=== PATIENT | male | born 1940 | race African-American/Black ===

== ENCOUNTER 2018-02-08 13:55 | Inpatient (IN) | payer MEDICARE, MEDICAID ==
[~2018-02-08] VITALS: Ht 165.1 cm; Wt 58.9 kg
[~2018-02-08 13:55] MED LIST: FERR325T18 PO; FOLI-17 PO; MULT-750 PO; PANT40TA5 PO; THIA100T67 PO
[2018-02-08] MEDS ORDERED: SODIUM CHLORIDE 0.9% 1,000ML IVBOLUS ONE (14:30)
[2018-02-08 14:43] LABS: BASOPHILS # (AUTO) 0.02 x10^3/uL (0-0.1); BASOPHILS % (AUTO) 0 % (0-1); EOSINOPHILS # (AUTO) 0.07 x10^3/uL (0-0.4); EOSINOPHILS % (AUTO) 1 % (1-7); LYMPHOCYTES # (AUTO) 0.78 x10^3/uL (1-3.4); LYMPHOCYTES % (AUTO) 12 % (22-44); MD NO; MEAN CORPUSCULAR HEMOGLOBIN 26.2 pg (27.5-34.5); MEAN CORPUSCULAR HGB CONC 32.7 g/dL (33.2-36.2); MEAN CORPUSCULAR VOLUME 79.9 fL (81-97); MEAN PLATELET VOLUME 10.3 fL (7.4-10.4); MONOCYTES # (AUTO) 0.72 x10^3/uL (0.2-0.8); MONOCYTES % (AUTO) 11 % (2-9); NEUTROPHILS # (AUTO) 4.98 x10^3/uL (1.8-6.8); NEUTROPHILS % (AUTO) 76 % (42-75); PLATELET COUNT 183 x10^3/uL (130-400); RED BLOOD COUNT 4.93 x10^6/uL (4.38-5.82); RED CELL DISTRIBUTION WIDTH 16.5 % (9.4-14.8)
[2018-02-08 14:49] LABS: ALBUMIN 3.8 g/dL (3.4-5.0); ANION GAP 12 mmol/L (5-15); CHLORIDE 117 mmol/L (98-107)
[2018-02-08 14:51] LABS: SALICYLATE LEVEL < 1.7 mg/dL (2.8-20.0)
[2018-02-08 14:54] LABS: ALANINE AMINOTRANSFERASE 44 U/L (12-78); ALKALINE PHOSPHATASE 65 U/L (45-117); BILIRUBIN,TOTAL 0.7 mg/dL (0.2-1.0); CREATININE 2.42 mg/dL (0.7-1.3); TROPONIN I 0.042 ng/mL (0.000-0.045)
[2018-02-08 15:00] LABS: ACETAMINOPHEN < 2 mcg/mL (10-30)
[2018-02-08 15:03] LABS: CREATINE KINASE, TOTAL 1205 U/L (39-308)
[2018-02-08 15:12] LABS: INTERNATIONAL NORMALIZED RATIO 1.1 (0.93-1.1); PROTHROMBIN TIME 11.4 Seconds (9.6-11.5)
[2018-02-08] MEDS ORDERED: ONDANSETRON 2MG/ML, 2ML IVPush PRN (16:00)
[2018-02-08] MEDS ORDERED: ACETAMINOPHEN 325 MG TABLET PO PRN (16:00)
[2018-02-08 17:48] VITALS: BP 176/80
[2018-02-08] MEDS: D5%-0.45% NACL 1,000 ML IV SCH (18:39)
[2018-02-08 19:30] VITALS: BP 128/72
[2018-02-09 02:43] VITALS: BP 120/70
[2018-02-09] MEDS: D5%-0.45% NACL 1,000 ML IV SCH (03:44)
[2018-02-09 06:14] LABS: ALBUMIN 3.2 g/dL (3.4-5.0); ANION GAP 6 mmol/L (5-15); CALCIUM 8.3 mg/dL (8.5-10.1); CHLORIDE 115 mmol/L (98-107)
[2018-02-09 06:28] LABS: ALANINE AMINOTRANSFERASE 43 U/L (12-78); ALKALINE PHOSPHATASE 52 U/L (45-117); BILIRUBIN,TOTAL 0.7 mg/dL (0.2-1.0); THYROID STIMULATING HORMONE 0.862 mIU/L (0.358-3.740); TOTAL PROTEIN 6.7 g/dL (6.4-8.2)
[2018-02-09 06:51] LABS: BASOPHILS # (AUTO) 0.03 x10^3/uL (0-0.1); BASOPHILS % (AUTO) 0 % (0-1); EOSINOPHILS # (AUTO) 0.31 x10^3/uL (0-0.4); EOSINOPHILS % (AUTO) 5 % (1-7); LYMPHOCYTES # (AUTO) 1.62 x10^3/uL (1-3.4); LYMPHOCYTES % (AUTO) 26 % (22-44); MD SCAN; MEAN CORPUSCULAR HGB CONC 32.5 g/dL (33.2-36.2); MEAN CORPUSCULAR VOLUME 79.8 fL (81-97); MEAN PLATELET VOLUME 10.7 fL (7.4-10.4); MONOCYTES # (AUTO) 0.72 x10^3/uL (0.2-0.8); MONOCYTES % (AUTO) 12 % (2-9); NEUTROPHILS % (AUTO) 57 % (42-75); PLATELET COUNT 162 x10^3/uL (130-400); RED BLOOD COUNT 4.57 x10^6/uL (4.38-5.82); RED CELL DISTRIBUTION WIDTH 16.2 % (9.4-14.8)
[2018-02-09 08:00] VITALS: BP 137/79
[2018-02-09 10:22] LABS: MICROSCOPIC NOT IND
[2018-02-09 10:27] LABS: CULTURE INDICATED? NO
[2018-02-09] MEDS ORDERED: ENOXAPARIN 30 MG/0.3 ML SQ SCH (13:00)
[2018-02-09 13:20] LABS: % IRON SATURATION 40 % (20-55); IRON LEVEL 83 mcg/dL (65-175); TOTAL IRON BINDING CAPACITY 205 mcg/dL (250-450)
[2018-02-09] MEDS: DEXTROSE 5% 1,000 ML IV SCH (15:48)
[2018-02-09] MEDS: IRON SUCROSE COMPLEX 100MG/5ML IV SCH (15:48)
[2018-02-09 18:57] VITALS: BP 136/72
[2018-02-10 01:13] VITALS: BP 156/64
[2018-02-10] MEDS: DEXTROSE 5% 1,000 ML IV SCH ×2 (03:10→16:51)
[2018-02-10 03:29] LABS: MICROSCOPIC NOT IND
[2018-02-10 03:44] LABS: CULTURE INDICATED? NO
[2018-02-10 05:24] LABS: ALBUMIN 2.9 g/dL (3.4-5.0); ANION GAP 7 mmol/L (5-15); CALCIUM 8.1 mg/dL (8.5-10.1); CHLORIDE 111 mmol/L (98-107); CREATININE 0.92 mg/dL (0.7-1.3)
[2018-02-10 08:21] VITALS: BP 165/79
[2018-02-10] MEDS: IRON SUCROSE COMPLEX 100MG/5ML IV SCH (10:47)
[2018-02-10 11:06] VITALS: BP 163/82
[2018-02-10 14:35] VITALS: BP 147/83
[2018-02-10] MEDS: ENOXAPARIN 40 MG/0.4 ML SQ SCH (15:26)
[2018-02-10 18:47] VITALS: BP 152/77
[2018-02-11 00:48] VITALS: BP 160/90
[2018-02-11] MEDS: DEXTROSE 5% 1,000 ML IV SCH ×2 (05:36→19:40)
[2018-02-11 07:07] LABS: CHLORIDE 105 mmol/L (98-107)
[2018-02-11 07:08] LABS: ANION GAP 7 mmol/L (5-15); CALCIUM 7.8 mg/dL (8.5-10.1); CREATININE 0.75 mg/dL (0.7-1.3)
[2018-02-11 07:09] LABS: CREATINE KINASE, TOTAL 253 U/L (39-308)
[2018-02-11 07:50] VITALS: BP 119/70
[2018-02-11] MEDS ORDERED: MAGNESIUM SULFATE PMX 2GM/50ML 50 ML IV ONE (09:00)
[2018-02-11] MEDS ORDERED: POTASSIUM CHLORIDE 20 MEQ TAB.ER.PRT PO ONE ×2 (09:00→15:00)
[2018-02-11] MEDS: IRON SUCROSE COMPLEX 100MG/5ML IV SCH (11:34)
[2018-02-11] MEDS: ENOXAPARIN 40 MG/0.4 ML SQ SCH (15:08)
[2018-02-11 15:21] VITALS: BP 143/75
[2018-02-11 19:32] VITALS: BP 148/77
[2018-02-12 01:54] VITALS: BP 154/82
[2018-02-12] MEDS: DEXTROSE 5% 1,000 ML IV SCH ×2 (05:34→15:22)
[2018-02-12 07:18] VITALS: BP 149/99
[2018-02-12] MEDS: IRON SUCROSE COMPLEX 100MG/5ML IV SCH (08:45)
[2018-02-12 13:49] VITALS: BP 135/67
[2018-02-12] MEDS: ENOXAPARIN 40 MG/0.4 ML SQ SCH (15:21)
[2018-02-12 20:00] VITALS: BP 149/76
[2018-02-13] MEDS: DEXTROSE 5% 1,000 ML IV SCH (01:28)
[2018-02-13 02:00] VITALS: BP 146/79
[2018-02-13 07:58] VITALS: BP 136/94
[2018-02-13] MEDS: IRON SUCROSE COMPLEX 100MG/5ML IV SCH (08:06)
[2018-02-13 12:23] VITALS: BP 142/75
[2018-02-13] MEDS: ENOXAPARIN 40 MG/0.4 ML SQ SCH (14:00)
[2018-02-13 19:26] VITALS: BP 124/68
[2018-02-14 01:04] VITALS: BP 153/86
[2018-02-14 07:23] VITALS: BP 111/74
[2018-02-14] MEDS: MAGNESIUM SULFATE PMX 2GM/50ML 50 ML IV ONE ×2 (10:12→17:27)
[2018-02-14] MEDS: POTASSIUM CHLORIDE 20 MEQ TAB.ER.PRT PO SCH ×2 (10:12→17:28)
[2018-02-14 13:02] VITALS: BP 111/74
[2018-02-14] MEDS: ENOXAPARIN 40 MG/0.4 ML SQ SCH (15:38)
[2018-02-14 20:00] VITALS: BP 159/74
[2018-02-15 02:00] VITALS: BP 169/81
[2018-02-15 05:17] LABS: ANION GAP 7 mmol/L (5-15); CALCIUM 8.5 mg/dL (8.5-10.1); CHLORIDE 107 mmol/L (98-107)
[2018-02-15 05:18] LABS: CREATININE 0.96 mg/dL (0.7-1.3)
[2018-02-15 07:33] VITALS: BP 120/82
[2018-02-15] MEDS: DOCUSATE 100 MG CAPSULE PO PRN (09:44)
[2018-02-15 12:58] VITALS: BP 107/69
[2018-02-15] MEDS: ENOXAPARIN 40 MG/0.4 ML SQ SCH (15:09)
[2018-02-15 20:00] VITALS: BP 124/74
[2018-02-16 01:53] VITALS: BP 120/69
[2018-02-16 07:42] LABS: ALBUMIN 3.3 g/dL (3.4-5.0); ANION GAP 7 mmol/L (5-15); CALCIUM 8.4 mg/dL (8.5-10.1); CHLORIDE 106 mmol/L (98-107); CREATININE 0.92 mg/dL (0.7-1.3)
[2018-02-16 07:43] VITALS: BP 121/73
[2018-02-16 12:52] VITALS: BP 123/74
[2018-02-16] MEDS: ENOXAPARIN 40 MG/0.4 ML SQ SCH (14:39)
[2018-02-16 19:33] VITALS: BP 129/75
[2018-02-17 01:58] VITALS: BP 160/78
[2018-02-17 08:42] VITALS: BP 143/84
[2018-02-17] MEDS: ENOXAPARIN 40 MG/0.4 ML SQ SCH (14:14)
[2018-02-17 14:27] VITALS: BP 127/82
[2018-02-17 21:54] VITALS: BP 126/76
[2018-02-18 01:48] VITALS: BP 119/79
[2018-02-18 06:48] VITALS: BP 120/75
[2018-02-18 12:20] VITALS: BP 118/69
[2018-02-18] MEDS: ENOXAPARIN 40 MG/0.4 ML SQ SCH (14:38)
[2018-02-18 19:25] VITALS: BP 152/72
[2018-02-19 01:56] VITALS: BP 124/66
[2018-02-19 07:24] VITALS: BP 116/75
[2018-02-19 12:56] VITALS: BP 138/73
[2018-02-19] MEDS: ENOXAPARIN 40 MG/0.4 ML SQ SCH (14:00)
[2018-02-19 19:35] VITALS: BP 135/77
[2018-02-20 00:57] VITALS: BP 117/77
[2018-02-20 04:54] LABS: BASOPHILS # (AUTO) 0.02 x10^3/uL (0-0.1); BASOPHILS % (AUTO) 0 % (0-1); EOSINOPHILS # (AUTO) 0.57 x10^3/uL (0-0.4); EOSINOPHILS % (AUTO) 9 % (1-7); LYMPHOCYTES # (AUTO) 1.82 x10^3/uL (1-3.4); LYMPHOCYTES % (AUTO) 28 % (22-44); MD NO; MEAN CORPUSCULAR HEMOGLOBIN 26.3 pg (27.5-34.5); MEAN CORPUSCULAR VOLUME 79.8 fL (81-97); MEAN PLATELET VOLUME 8.6 fL (7.4-10.4); MONOCYTES # (AUTO) 0.59 x10^3/uL (0.2-0.8); MONOCYTES % (AUTO) 9 % (2-9); NEUTROPHILS # (AUTO) 3.61 x10^3/uL (1.8-6.8); NEUTROPHILS % (AUTO) 55 % (42-75); PLATELET COUNT 325 x10^3/uL (130-400); RED BLOOD COUNT 5.05 x10^6/uL (4.38-5.82)
[2018-02-20 05:08] LABS: ANION GAP 7 mmol/L (5-15); CALCIUM 8.7 mg/dL (8.5-10.1); CHLORIDE 98 mmol/L (98-107)
[2018-02-20 05:14] LABS: ALANINE AMINOTRANSFERASE 30 U/L (12-78); ALBUMIN 3.3 g/dL (3.4-5.0); ALKALINE PHOSPHATASE 74 U/L (45-117); BILIRUBIN,TOTAL 0.5 mg/dL (0.2-1.0); CREATININE 1.16 mg/dL (0.7-1.3); TOTAL PROTEIN 7.7 g/dL (6.4-8.2)
[2018-02-20 06:50] VITALS: BP 119/74
[2018-02-20 13:04] VITALS: BP 155/75
[2018-02-20] MEDS: ENOXAPARIN 40 MG/0.4 ML SQ SCH (14:00)
[2018-02-20 19:42] VITALS: BP 117/62
[2018-02-21 01:11] VITALS: BP 122/87
[2018-02-21 06:42] VITALS: BP 108/58
[2018-02-21 13:01] VITALS: BP 110/70
[2018-02-21] MEDS: ENOXAPARIN 40 MG/0.4 ML SQ SCH (14:20)
[2018-02-21 20:15] VITALS: BP 129/74
[2018-02-22 01:55] VITALS: BP 121/68
[2018-02-22 07:00] VITALS: BP 116/69
[2018-02-22 12:57] VITALS: BP 127/77
[2018-02-22] MEDS: ENOXAPARIN 40 MG/0.4 ML SQ SCH (14:30)
[2018-02-22] MEDS: DOCUSATE 100 MG CAPSULE PO PRN (14:30)
[2018-02-23 07:50] VITALS: BP 126/64
[2018-02-23 09:00] LABS: ALBUMIN 3.4 g/dL (3.4-5.0); ANION GAP 6 mmol/L (5-15); CALCIUM 8.4 mg/dL (8.5-10.1); CHLORIDE 96 mmol/L (98-107)
[2018-02-23 09:01] LABS: CREATININE 1.11 mg/dL (0.7-1.3)
[2018-02-23 13:31] LABS: ABSOLUTE RETICS # 0.136 x10^6/uL (0.5-1.5); RED BLOOD COUNT 5.17 x10^6/uL (4.38-5.82); RETICULOCYTE COUNT % 2.62 % (0.5-1.5)
[2018-02-23 13:35] LABS: CALCIUM 8.9 mg/dL (8.5-10.1)
[2018-02-23] MEDS: ENOXAPARIN 40 MG/0.4 ML SQ SCH (15:33)
[2018-02-23 17:50] LABS: MICROSCOPIC NOT IND
[2018-02-23 17:58] LABS: CHLORIDE,URINE RANDOM 30 mmol/L; POTASSIUM,URINE RANDOM 38 mmol/L; SODIUM,URINE RANDOM 51 mmol/L
[2018-02-23 18:54] LABS: OSMOLALITY,URINE 437 mOsm/kg (500-850)
[2018-02-23] MEDS: POLYETHYLENE GLYCOL 17 GM PACKET PO PRN (22:08)
[2018-02-24 04:59] VITALS: BP 81/52
[2018-02-24 06:51] LABS: ALANINE AMINOTRANSFERASE 28 U/L (12-78); ALBUMIN 3.8 g/dL (3.4-5.0); ANION GAP 9 mmol/L (5-15); CALCIUM 8.6 mg/dL (8.5-10.1); CHLORIDE 97 mmol/L (98-107)
[2018-02-24 06:54] LABS: ALKALINE PHOSPHATASE 101 U/L (45-117); BILIRUBIN,TOTAL 0.4 mg/dL (0.2-1.0); CREATINE KINASE, TOTAL 55 U/L (39-308); TOTAL PROTEIN 8.5 g/dL (6.4-8.2)
[2018-02-24 06:59] LABS: BASOPHILS # (AUTO) 0.06 x10^3/uL (0-0.1); BASOPHILS % (AUTO) 1 % (0-1); EOSINOPHILS # (AUTO) 0.43 x10^3/uL (0-0.4); EOSINOPHILS % (AUTO) 7 % (1-7); LYMPHOCYTES # (AUTO) 1.11 x10^3/uL (1-3.4); LYMPHOCYTES % (AUTO) 19 % (22-44); MD NO; MEAN CORPUSCULAR HEMOGLOBIN 26.4 pg (27.5-34.5); MEAN CORPUSCULAR HGB CONC 33.1 g/dL (33.2-36.2); MEAN CORPUSCULAR VOLUME 79.8 fL (81-97); MEAN PLATELET VOLUME 8.7 fL (7.4-10.4); MONOCYTES # (AUTO) 0.47 x10^3/uL (0.2-0.8); MONOCYTES % (AUTO) 8 % (2-9); NEUTROPHILS # (AUTO) 3.73 x10^3/uL (1.8-6.8); NEUTROPHILS % (AUTO) 64 % (42-75); PLATELET COUNT 347 x10^3/uL (130-400); RED BLOOD COUNT 5.52 x10^6/uL (4.38-5.82); RED CELL DISTRIBUTION WIDTH 17.4 % (9.4-14.8)
[2018-02-24 07:35] VITALS: BP 127/79
[2018-02-24] MEDS: ENOXAPARIN 40 MG/0.4 ML SQ SCH (15:35)
[2018-02-24] MEDS: POLYETHYLENE GLYCOL 17 GM PACKET PO PRN (15:36)
[2018-02-25 04:47] LABS: BASOPHILS # (AUTO) 0.04 x10^3/uL (0-0.1); BASOPHILS % (AUTO) 1 % (0-1); EOSINOPHILS # (AUTO) 0.57 x10^3/uL (0-0.4); EOSINOPHILS % (AUTO) 8 % (1-7); LYMPHOCYTES # (AUTO) 1.85 x10^3/uL (1-3.4); LYMPHOCYTES % (AUTO) 26 % (22-44); MD NO; MEAN CORPUSCULAR HEMOGLOBIN 26.4 pg (27.5-34.5); MEAN CORPUSCULAR HGB CONC 32.7 g/dL (33.2-36.2); MEAN CORPUSCULAR VOLUME 80.8 fL (81-97); MEAN PLATELET VOLUME 8.9 fL (7.4-10.4); MONOCYTES # (AUTO) 0.72 x10^3/uL (0.2-0.8); MONOCYTES % (AUTO) 10 % (2-9); NEUTROPHILS # (AUTO) 3.83 x10^3/uL (1.8-6.8); NEUTROPHILS % (AUTO) 55 % (42-75); PLATELET COUNT 338 x10^3/uL (130-400); RED BLOOD COUNT 4.96 x10^6/uL (4.38-5.82); RED CELL DISTRIBUTION WIDTH 16.9 % (9.4-14.8)
[2018-02-25 04:53] LABS: CHLORIDE 97 mmol/L (98-107)
[2018-02-25 04:59] LABS: ALBUMIN 3.3 g/dL (3.4-5.0); ANION GAP 9 mmol/L (5-15); CALCIUM 8.5 mg/dL (8.5-10.1)
[2018-02-25 07:28] VITALS: BP 129/70
[2018-02-25] MEDS: ENOXAPARIN 40 MG/0.4 ML SQ SCH (14:22)
[2018-02-25 19:37] VITALS: BP 131/79
[2018-02-26 01:23] VITALS: BP 132/64
[2018-02-26 07:30] VITALS: BP 115/63
[2018-02-26] MEDS: SODIUM CHLORIDE 0.9% 1,000 ML IV SCH ×2 (09:39→19:48)
[2018-02-26] MEDS: ENOXAPARIN 40 MG/0.4 ML SQ SCH (15:02)
[2018-02-26 20:41] VITALS: BP 123/76
[2018-02-27 01:09] VITALS: BP 129/73
[2018-02-27] MEDS: SODIUM CHLORIDE 0.9% 1,000 ML IV SCH ×2 (05:34→15:15)
[2018-02-27 08:06] VITALS: BP 128/70
[2018-02-27 09:10] LABS: ALBUMIN 3.3 g/dL (3.4-5.0); ANION GAP 4 mmol/L (5-15); CALCIUM 8.4 mg/dL (8.5-10.1); CHLORIDE 101 mmol/L (98-107); CREATININE 0.93 mg/dL (0.7-1.3)
[2018-02-27 13:47] VITALS: BP 132/68
[2018-02-27] MEDS: ENOXAPARIN 40 MG/0.4 ML SQ SCH (15:15)
[2018-02-27 18:53] VITALS: BP 121/60
[2018-02-28 01:09] VITALS: BP 140/65
[2018-02-28] MEDS: SODIUM CHLORIDE 0.9% 1,000 ML IV SCH ×3 (02:56→21:28)
[2018-02-28 07:35] VITALS: BP 125/75
[2018-02-28 12:14] VITALS: BP 126/71
[2018-02-28] MEDS: ENOXAPARIN 40 MG/0.4 ML SQ SCH (15:27)
[2018-02-28 20:00] VITALS: BP 126/76
[2018-03-01 01:37] VITALS: BP 131/71
[2018-03-01] MEDS: SODIUM CHLORIDE 0.9% 1,000 ML IV SCH ×2 (06:42→17:30)
[2018-03-01 07:08] VITALS: BP 118/57
[2018-03-01 13:17] VITALS: BP 124/62
[2018-03-01] MEDS: ENOXAPARIN 40 MG/0.4 ML SQ SCH (15:33)
[2018-03-01 16:41] LABS: ALBUMIN 2.9 g/dL (3.4-5.0); ANION GAP 8 mmol/L (5-15); CHLORIDE 104 mmol/L (98-107)
[2018-03-01 16:44] LABS: CREATININE 0.78 mg/dL (0.7-1.3)
[2018-03-01 21:42] VITALS: BP 141/71
[2018-03-02 02:06] VITALS: BP 133/62
[2018-03-02] MEDS: SODIUM CHLORIDE 0.9% 1,000 ML IV SCH ×2 (03:24→13:43)
[2018-03-02 07:15] VITALS: BP 137/67
[2018-03-02 12:48] VITALS: BP 125/71
[2018-03-02] MEDS: ENOXAPARIN 40 MG/0.4 ML SQ SCH (15:29)
[2018-03-02 20:07] VITALS: BP 135/73
[2018-03-03 01:18] VITALS: BP 156/67
[2018-03-03 05:50] LABS: ALBUMIN 3.2 g/dL (3.4-5.0); ANION GAP 7 mmol/L (5-15); CALCIUM 8.4 mg/dL (8.5-10.1); CHLORIDE 103 mmol/L (98-107); CREATININE 0.71 mg/dL (0.7-1.3)
[2018-03-03 08:03] VITALS: BP 130/62
[2018-03-03 13:24] VITALS: BP 107/55
[2018-03-03] MEDS: ENOXAPARIN 40 MG/0.4 ML SQ SCH (16:01)
[2018-03-03 19:02] VITALS: BP 152/75
[2018-03-04 00:46] VITALS: BP 139/83
[2018-03-04 06:01] LABS: ANION GAP 7 mmol/L (5-15); CHLORIDE 99 mmol/L (98-107); CREATININE 0.76 mg/dL (0.7-1.3)
[2018-03-04 08:18] VITALS: BP 140/67
[2018-03-04 12:14] VITALS: BP 99/60
[2018-03-04] MEDS: ENOXAPARIN 40 MG/0.4 ML SQ SCH (15:50)
[2018-03-04 20:00] VITALS: BP 99/47
[2018-03-05 02:00] VITALS: BP 136/64
[2018-03-05 07:08] VITALS: BP 112/60
[2018-03-05 12:13] VITALS: BP 120/64
[2018-03-05] MEDS: ENOXAPARIN 40 MG/0.4 ML SQ SCH (15:52)
[2018-03-05 19:20] VITALS: BP 126/68
[2018-03-06 01:08] VITALS: BP 112/58
[2018-03-06 07:20] VITALS: BP 110/68
[2018-03-06] MEDS: DOCUSATE 100 MG CAPSULE PO PRN (09:22)
[2018-03-06 13:01] VITALS: BP 122/70
[2018-03-06] MEDS: ENOXAPARIN 40 MG/0.4 ML SQ SCH (15:20)
[2018-03-06 19:02] VITALS: BP 116/64
[2018-03-07 01:02] VITALS: BP 107/62
[2018-03-07 06:29] LABS: ANION GAP 9 mmol/L (5-15); CALCIUM 8.4 mg/dL (8.5-10.1); CHLORIDE 100 mmol/L (98-107)
[2018-03-07 06:31] LABS: CREATININE 0.88 mg/dL (0.7-1.3)
[2018-03-07 07:14] VITALS: BP 101/49
[2018-03-07 09:14] LABS: MICROSCOPIC NOT IND
[2018-03-07 09:18] LABS: CULTURE INDICATED? NO
[2018-03-07 13:01] VITALS: BP 99/61
[2018-03-07] MEDS: ENOXAPARIN 40 MG/0.4 ML SQ SCH (15:28)
[2018-03-07 19:18] VITALS: BP 122/54
[2018-03-08 00:55] VITALS: BP 118/58
[2018-03-08 09:58] VITALS: BP 116/64
[2018-03-08 10:36] LABS: CHLORIDE 100 mmol/L (98-107)
[2018-03-08 10:41] LABS: ANION GAP 8 mmol/L (5-15); CALCIUM 8.9 mg/dL (8.5-10.1); CREATININE 0.91 mg/dL (0.7-1.3)
[2018-03-08 14:17] VITALS: BP 116/48
[2018-03-08] MEDS: ENOXAPARIN 40 MG/0.4 ML SQ SCH (16:16)
[2018-03-08 20:27] VITALS: BP 129/66
[2018-03-09 02:01] VITALS: BP 180/99
[2018-03-09 03:52] VITALS: BP 126/77
[2018-03-09 14:18] VITALS: BP 136/75
[2018-03-09] MEDS: ENOXAPARIN 40 MG/0.4 ML SQ SCH (14:58)
[2018-03-09 19:39] VITALS: BP 110/41
[2018-03-10 01:10] VITALS: BP 96/50
[2018-03-10 07:46] VITALS: BP 96/51
[2018-03-10 13:00] VITALS: BP 123/71
[2018-03-10] MEDS: ENOXAPARIN 40 MG/0.4 ML SQ SCH (15:39)
[2018-03-10 19:00] VITALS: BP 138/79
[2018-03-11 02:45] VITALS: BP 123/60
[2018-03-11 08:38] VITALS: BP 122/62
[2018-03-11 14:15] VITALS: BP 121/58
[2018-03-11] MEDS: ENOXAPARIN 40 MG/0.4 ML SQ SCH (14:57)
[2018-03-11 20:17] VITALS: BP 113/63
[2018-03-12 02:03] VITALS: BP 101/63
[2018-03-12 07:25] VITALS: BP 110/61
[2018-03-12 09:47] LABS: ANION GAP 9 mmol/L (5-15); CALCIUM 8.7 mg/dL (8.5-10.1); CHLORIDE 93 mmol/L (98-107)
[2018-03-12 09:48] LABS: CREATININE 1.06 mg/dL (0.7-1.3)
[2018-03-12] MEDS ORDERED: SODIUM CHLORIDE 1 GM TABLET PO SCH (11:00)
[2018-03-12 13:36] VITALS: BP 107/69
[2018-03-12] MEDS: ENOXAPARIN 40 MG/0.4 ML SQ SCH (14:42)
[2018-03-12] MEDS: SODIUM CHLORIDE 1 GM TABLET PO SCH ×2 (15:51→21:57)
[2018-03-12 19:41] VITALS: BP 119/72
[2018-03-13 01:30] VITALS: BP 130/65
[2018-03-13 07:15] VITALS: BP 100/56
[2018-03-13] MEDS: SODIUM CHLORIDE 1 GM TABLET PO SCH ×3 (09:10→22:41)
[2018-03-13 10:27] LABS: ANION GAP 8 mmol/L (5-15); CALCIUM 8.9 mg/dL (8.5-10.1); CHLORIDE 93 mmol/L (98-107); CREATININE 0.99 mg/dL (0.7-1.3)
[2018-03-13 13:42] VITALS: BP 102/78
[2018-03-13] MEDS: ENOXAPARIN 40 MG/0.4 ML SQ SCH (15:32)
[2018-03-13 18:55] VITALS: BP 110/76
[2018-03-14 01:13] VITALS: BP 104/65
[2018-03-14] MEDS: SODIUM CHLORIDE 1 GM TABLET PO SCH ×4 (05:23→20:05)
[2018-03-14 05:57] LABS: CALCIUM 9.4 mg/dL (8.5-10.1); CHLORIDE 96 mmol/L (98-107)
[2018-03-14 06:00] LABS: ANION GAP 8 mmol/L (5-15); CREATININE 1.16 mg/dL (0.7-1.3)
[2018-03-14] MEDS ORDERED: SODIUM POLYSTYRENE SULFONATE ORAL SUSP PO ONE (08:00)
[2018-03-14 09:30] VITALS: BP 124/70
[2018-03-14 13:30] VITALS: BP 104/58
[2018-03-14] MEDS: ENOXAPARIN 40 MG/0.4 ML SQ SCH (15:32)
[2018-03-14 20:05] VITALS: BP 124/59
[2018-03-15 02:15] VITALS: BP 144/76
[2018-03-15] MEDS: SODIUM CHLORIDE 1 GM TABLET PO SCH ×4 (06:10→20:00)
[2018-03-15 07:18] VITALS: BP 123/71
[2018-03-15 09:25] LABS: ANION GAP 8 mmol/L (5-15); CALCIUM 8.8 mg/dL (8.5-10.1); CHLORIDE 101 mmol/L (98-107); CREATININE 1.09 mg/dL (0.7-1.3)
[2018-03-15 13:35] VITALS: BP 102/54
[2018-03-15] MEDS: ENOXAPARIN 40 MG/0.4 ML SQ SCH (16:11)
[2018-03-15 20:00] VITALS: BP 105/56
[2018-03-16 01:40] VITALS: BP_SYST 107; BP_SYST 132; BP_DIAS 52; BP_DIAS 86
[2018-03-16] MEDS: SODIUM CHLORIDE 1 GM TABLET PO SCH ×4 (06:00→20:56)
[2018-03-16 08:16] VITALS: BP 120/72
[2018-03-16 14:34] VITALS: BP 117/68
[2018-03-16] MEDS: ENOXAPARIN 40 MG/0.4 ML SQ SCH (15:15)
[2018-03-16 21:01] VITALS: BP 122/80
[2018-03-17 02:04] VITALS: BP 122/70
[2018-03-17] MEDS: SODIUM CHLORIDE 1 GM TABLET PO SCH ×4 (05:54→21:00)
[2018-03-17 07:26] VITALS: BP 99/56
[2018-03-17 07:29] LABS: ANION GAP 8 mmol/L (5-15); CALCIUM 8.2 mg/dL (8.5-10.1); CHLORIDE 102 mmol/L (98-107); CREATININE 1.06 mg/dL (0.7-1.3)
[2018-03-17] MEDS: ENOXAPARIN 40 MG/0.4 ML SQ SCH (15:46)
[2018-03-17 15:58] VITALS: BP 135/79
[2018-03-17 18:53] VITALS: BP 129/64
[2018-03-18 02:54] VITALS: BP 109/68
[2018-03-18] MEDS: SODIUM CHLORIDE 1 GM TABLET PO SCH ×4 (06:19→21:40)
[2018-03-18 10:00] VITALS: BP 112/54
[2018-03-18 14:16] VITALS: BP 137/74
[2018-03-18] MEDS: ENOXAPARIN 40 MG/0.4 ML SQ SCH (15:34)
[2018-03-18 20:16] VITALS: BP 145/74
[2018-03-19 01:02] VITALS: BP 122/76
[2018-03-19 05:41] LABS: ANION GAP 5 mmol/L (5-15); CALCIUM 8.9 mg/dL (8.5-10.1); CHLORIDE 100 mmol/L (98-107); CREATININE 1.02 mg/dL (0.7-1.3)
[2018-03-19] MEDS: SODIUM CHLORIDE 1 GM TABLET PO SCH ×4 (06:11→22:19)
[2018-03-19 06:23] LABS: MEAN CORPUSCULAR HEMOGLOBIN 26.4 pg (27.5-34.5); MEAN CORPUSCULAR HGB CONC 32.8 g/dL (33.2-36.2); MEAN CORPUSCULAR VOLUME 80.4 fL (81-97); MEAN PLATELET VOLUME 8.8 fL (7.4-10.4); PLATELET COUNT 277 x10^3/uL (130-400); RED BLOOD COUNT 5.36 x10^6/uL (4.38-5.82); RED CELL DISTRIBUTION WIDTH 17.4 % (9.4-14.8)
[2018-03-19 06:24] LABS: MD YES
[2018-03-19 06:26] LABS: ANISOCYTOSIS 1+; EOS#(MANUAL) 0.27 x10^3/uL (0.0-0.4); EOS% (MANUAL) 5 % (1-7); LYMPH#(MANUAL) 1.91 x10^3/uL (1-3.4); LYMPHS% (MANUAL) 36 % (22-44); MONOS#(MANUAL) 0.48 x10^3/uL (0.3-2.7); MONOS% (MANUAL) 9 % (2-9); SEG#(MANUAL) 2.65 x10^3/uL (1.8-6.8); SEGS% (MANUAL) 50 % (42-75)
[2018-03-19 06:27] LABS: <PLATELET ESTIMATE> ADEQUATE; <PLT MORPHOLOGY> NORMAL PLT MORPH
[2018-03-19 06:54] VITALS: BP 99/56
[2018-03-19 13:19] VITALS: BP 111/63
[2018-03-19] MEDS: ENOXAPARIN 40 MG/0.4 ML SQ SCH (14:18)
[2018-03-19 18:35] VITALS: BP 134/69
[2018-03-20 01:18] VITALS: BP 129/65
[2018-03-20 05:02] LABS: BASOPHILS # (AUTO) 0.01 x10^3/uL (0-0.1); BASOPHILS % (AUTO) 0 % (0-1); EOSINOPHILS # (AUTO) 0.43 x10^3/uL (0-0.4); EOSINOPHILS % (AUTO) 8 % (1-7); LYMPHOCYTES # (AUTO) 1.65 x10^3/uL (1-3.4); LYMPHOCYTES % (AUTO) 29 % (22-44); MD NO; MEAN CORPUSCULAR HEMOGLOBIN 26.5 pg (27.5-34.5); MEAN CORPUSCULAR HGB CONC 32.9 g/dL (33.2-36.2); MEAN CORPUSCULAR VOLUME 80.4 fL (81-97); MEAN PLATELET VOLUME 8.6 fL (7.4-10.4); MONOCYTES # (AUTO) 0.46 x10^3/uL (0.2-0.8); MONOCYTES % (AUTO) 8 % (2-9); NEUTROPHILS # (AUTO) 3.23 x10^3/uL (1.8-6.8); NEUTROPHILS % (AUTO) 56 % (42-75); PLATELET COUNT 318 x10^3/uL (130-400); RED BLOOD COUNT 5.43 x10^6/uL (4.38-5.82); RED CELL DISTRIBUTION WIDTH 17.4 % (9.4-14.8)
[2018-03-20 05:16] LABS: ANION GAP 7 mmol/L (5-15); CALCIUM 8.7 mg/dL (8.5-10.1); CHLORIDE 102 mmol/L (98-107); CREATININE 0.93 mg/dL (0.7-1.3)
[2018-03-20] MEDS: SODIUM CHLORIDE 1 GM TABLET PO SCH ×4 (05:47→20:16)
[2018-03-20 08:47] VITALS: BP 123/66
[2018-03-20 13:43] VITALS: BP 110/60
[2018-03-20] MEDS: ENOXAPARIN 40 MG/0.4 ML SQ SCH (15:53)
[2018-03-20 20:16] VITALS: BP 104/64
[2018-03-21 01:25] VITALS: BP 103/62
[2018-03-21 05:56] LABS: BASOPHILS # (AUTO) 0.03 x10^3/uL (0-0.1); BASOPHILS % (AUTO) 1 % (0-1); EOSINOPHILS # (AUTO) 0.46 x10^3/uL (0-0.4); EOSINOPHILS % (AUTO) 8 % (1-7); LYMPHOCYTES # (AUTO) 1.76 x10^3/uL (1-3.4); LYMPHOCYTES % (AUTO) 29 % (22-44); MD NO; MEAN CORPUSCULAR HEMOGLOBIN 26.4 pg (27.5-34.5); MEAN CORPUSCULAR HGB CONC 32.8 g/dL (33.2-36.2); MEAN CORPUSCULAR VOLUME 80.4 fL (81-97); MEAN PLATELET VOLUME 8.6 fL (7.4-10.4); MONOCYTES # (AUTO) 0.53 x10^3/uL (0.2-0.8); MONOCYTES % (AUTO) 9 % (2-9); NEUTROPHILS # (AUTO) 3.22 x10^3/uL (1.8-6.8); NEUTROPHILS % (AUTO) 54 % (42-75); PLATELET COUNT 314 x10^3/uL (130-400); RED BLOOD COUNT 5.53 x10^6/uL (4.38-5.82); RED CELL DISTRIBUTION WIDTH 16.8 % (9.4-14.8)
[2018-03-21 06:13] LABS: ANION GAP 7 mmol/L (5-15); CALCIUM 8.7 mg/dL (8.5-10.1); CHLORIDE 101 mmol/L (98-107)
[2018-03-21 06:15] LABS: CREATININE 1.05 mg/dL (0.7-1.3)
[2018-03-21 07:07] VITALS: BP 107/63
[2018-03-21] MEDS: SODIUM CHLORIDE 1 GM TABLET PO SCH ×4 (07:36→20:37)
[2018-03-21 12:56] VITALS: BP 109/64
[2018-03-21] MEDS: ENOXAPARIN 40 MG/0.4 ML SQ SCH (15:46)
[2018-03-21 20:35] VITALS: BP 112/68
[2018-03-22 02:00] VITALS: BP 105/62
[2018-03-22] MEDS: SODIUM CHLORIDE 1 GM TABLET PO SCH ×4 (05:12→20:35)
[2018-03-22 07:16] LABS: ANION GAP 8 mmol/L (5-15); CALCIUM 9.1 mg/dL (8.5-10.1); CHLORIDE 106 mmol/L (98-107); MEAN CORPUSCULAR HEMOGLOBIN 26.1 pg (27.5-34.5); MEAN CORPUSCULAR HGB CONC 32.7 g/dL (33.2-36.2); MEAN PLATELET VOLUME 8.4 fL (7.4-10.4); PLATELET COUNT 322 x10^3/uL (130-400); RED BLOOD COUNT 5.25 x10^6/uL (4.38-5.82); RED CELL DISTRIBUTION WIDTH 17.8 % (9.4-14.8)
[2018-03-22 07:17] LABS: CREATININE 0.96 mg/dL (0.7-1.3)
[2018-03-22 08:00] VITALS: BP 114/61
[2018-03-22 08:09] LABS: BASOPHILS # (AUTO) 0.07 x10^3/uL (0-0.1); BASOPHILS % (AUTO) 1 % (0-1); EOSINOPHILS # (AUTO) 0.47 x10^3/uL (0-0.4); EOSINOPHILS % (AUTO) 8 % (1-7); LYMPHOCYTES # (AUTO) 1.38 x10^3/uL (1-3.4); LYMPHOCYTES % (AUTO) 24 % (22-44); MD SCAN; MONOCYTES # (AUTO) 0.59 x10^3/uL (0.2-0.8); MONOCYTES % (AUTO) 11 % (2-9); NEUTROPHILS # (AUTO) 3.16 x10^3/uL (1.8-6.8); NEUTROPHILS % (AUTO) 56 % (42-75)
[2018-03-22 13:23] VITALS: BP 134/58
[2018-03-22] MEDS: ENOXAPARIN 40 MG/0.4 ML SQ SCH (16:12)
[2018-03-22 20:00] VITALS: BP 128/56
[2018-03-23 02:00] VITALS: BP 161/79
[2018-03-23 05:28] LABS: BASOPHILS # (AUTO) 0.02 x10^3/uL (0-0.1); BASOPHILS % (AUTO) 1 % (0-1); EOSINOPHILS # (AUTO) 0.33 x10^3/uL (0-0.4); EOSINOPHILS % (AUTO) 6 % (1-7); LYMPHOCYTES # (AUTO) 1.66 x10^3/uL (1-3.4); LYMPHOCYTES % (AUTO) 32 % (22-44); MD NO; MEAN CORPUSCULAR HEMOGLOBIN 26.4 pg (27.5-34.5); MEAN CORPUSCULAR HGB CONC 32.8 g/dL (33.2-36.2); MEAN CORPUSCULAR VOLUME 80.5 fL (81-97); MEAN PLATELET VOLUME 8.9 fL (7.4-10.4); MONOCYTES % (AUTO) 10 % (2-9); NEUTROPHILS # (AUTO) 2.65 x10^3/uL (1.8-6.8); NEUTROPHILS % (AUTO) 51 % (42-75); PLATELET COUNT 292 x10^3/uL (130-400); RED BLOOD COUNT 5.33 x10^6/uL (4.38-5.82); RED CELL DISTRIBUTION WIDTH 17.3 % (9.4-14.8)
[2018-03-23 05:37] LABS: ANION GAP 8 mmol/L (5-15); CHLORIDE 102 mmol/L (98-107)
[2018-03-23 07:55] VITALS: BP 127/74
[2018-03-23] MEDS: SODIUM CHLORIDE 1 GM TABLET PO SCH ×4 (08:13→20:25)
[2018-03-23 14:00] VITALS: BP 101/62
[2018-03-23] MEDS: ENOXAPARIN 40 MG/0.4 ML SQ SCH (16:34)
[2018-03-23 19:44] VITALS: BP 100/67
[2018-03-24 01:15] VITALS: BP 121/75
[2018-03-24 05:07] LABS: BASOPHILS # (AUTO) 0.04 x10^3/uL (0-0.1); BASOPHILS % (AUTO) 1 % (0-1); EOSINOPHILS # (AUTO) 0.44 x10^3/uL (0-0.4); EOSINOPHILS % (AUTO) 8 % (1-7); LYMPHOCYTES # (AUTO) 1.82 x10^3/uL (1-3.4); LYMPHOCYTES % (AUTO) 33 % (22-44); MD NO; MEAN CORPUSCULAR HEMOGLOBIN 26.5 pg (27.5-34.5); MEAN CORPUSCULAR HGB CONC 33.1 g/dL (33.2-36.2); MEAN CORPUSCULAR VOLUME 79.9 fL (81-97); MEAN PLATELET VOLUME 9.1 fL (7.4-10.4); MONOCYTES # (AUTO) 0.52 x10^3/uL (0.2-0.8); MONOCYTES % (AUTO) 9 % (2-9); NEUTROPHILS # (AUTO) 2.77 x10^3/uL (1.8-6.8); NEUTROPHILS % (AUTO) 50 % (42-75); PLATELET COUNT 344 x10^3/uL (130-400); RED CELL DISTRIBUTION WIDTH 17.4 % (9.4-14.8)
[2018-03-24 05:17] LABS: ANION GAP 9 mmol/L (5-15); CALCIUM 8.6 mg/dL (8.5-10.1); CHLORIDE 103 mmol/L (98-107)
[2018-03-24 05:18] LABS: CREATININE 1.07 mg/dL (0.7-1.3)
[2018-03-24] MEDS: SODIUM CHLORIDE 1 GM TABLET PO SCH ×4 (07:43→20:15)
[2018-03-24 07:45] VITALS: BP 123/79
[2018-03-24 13:34] VITALS: BP 136/79
[2018-03-24] MEDS: ENOXAPARIN 40 MG/0.4 ML SQ SCH (15:18)
[2018-03-24 20:39] VITALS: BP 122/75
[2018-03-25 00:52] VITALS: BP 132/73
[2018-03-25 05:33] LABS: ANION GAP 4 mmol/L (5-15); CHLORIDE 104 mmol/L (98-107); CREATININE 0.99 mg/dL (0.7-1.3)
[2018-03-25] MEDS: SODIUM CHLORIDE 1 GM TABLET PO SCH ×4 (06:34→21:57)
[2018-03-25 06:39] VITALS: BP 122/70
[2018-03-25 14:33] VITALS: BP 129/74
[2018-03-25] MEDS: ENOXAPARIN 40 MG/0.4 ML SQ SCH (14:38)
[2018-03-25 19:22] VITALS: BP 130/60
[2018-03-26 02:00] VITALS: BP 149/72
[2018-03-26 05:31] LABS: BASOPHILS # (AUTO) 0.03 x10^3/uL (0-0.1); BASOPHILS % (AUTO) 1 % (0-1); EOSINOPHILS # (AUTO) 0.37 x10^3/uL (0-0.4); EOSINOPHILS % (AUTO) 6 % (1-7); LYMPHOCYTES # (AUTO) 1.92 x10^3/uL (1-3.4); LYMPHOCYTES % (AUTO) 31 % (22-44); MD NO; MEAN CORPUSCULAR HEMOGLOBIN 26.5 pg (27.5-34.5); MEAN CORPUSCULAR HGB CONC 33.2 g/dL (33.2-36.2); MEAN CORPUSCULAR VOLUME 79.8 fL (81-97); MEAN PLATELET VOLUME 8.9 fL (7.4-10.4); MONOCYTES # (AUTO) 0.52 x10^3/uL (0.2-0.8); MONOCYTES % (AUTO) 9 % (2-9); NEUTROPHILS # (AUTO) 3.29 x10^3/uL (1.8-6.8); NEUTROPHILS % (AUTO) 54 % (42-75); PLATELET COUNT 316 x10^3/uL (130-400); RED BLOOD COUNT 5.42 x10^6/uL (4.38-5.82); RED CELL DISTRIBUTION WIDTH 17.2 % (9.4-14.8)
[2018-03-26 05:41] LABS: CHLORIDE 101 mmol/L (98-107)
[2018-03-26 05:42] LABS: ANION GAP 6 mmol/L (5-15); CREATININE 1.09 mg/dL (0.7-1.3)
[2018-03-26 06:41] VITALS: BP 100/64
[2018-03-26] MEDS: SODIUM CHLORIDE 1 GM TABLET PO SCH ×4 (06:46→21:26)
[2018-03-26 12:26] VITALS: BP 110/75
[2018-03-26] MEDS ORDERED: SODIUM POLYSTYRENE SULFONATE ORAL SUSP PO ONE (13:00)
[2018-03-26] MEDS: ENOXAPARIN 40 MG/0.4 ML SQ SCH (15:39)
[2018-03-26 19:02] VITALS: BP 109/74
[2018-03-27 01:09] VITALS: BP 122/63
[2018-03-27 05:51] LABS: ANION GAP 6 mmol/L (5-15); CALCIUM 8.6 mg/dL (8.5-10.1); CHLORIDE 104 mmol/L (98-107); CREATININE 1.13 mg/dL (0.7-1.3)
[2018-03-27] MEDS: SODIUM CHLORIDE 1 GM TABLET PO SCH ×4 (05:52→21:13)
[2018-03-27 07:09] VITALS: BP 104/64
[2018-03-27 12:57] VITALS: BP 128/76
[2018-03-27] MEDS: ENOXAPARIN 40 MG/0.4 ML SQ SCH (14:41)
[2018-03-27 19:04] VITALS: BP 114/74
[2018-03-28 00:58] VITALS: BP 117/63
[2018-03-28] MEDS: SODIUM CHLORIDE 1 GM TABLET PO SCH ×4 (06:09→21:03)
[2018-03-28 07:58] VITALS: BP 103/60
[2018-03-28 13:15] VITALS: BP 125/64
[2018-03-28] MEDS: ENOXAPARIN 40 MG/0.4 ML SQ SCH (15:00)
[2018-03-28 18:49] VITALS: BP 130/79
[2018-03-29 03:12] VITALS: BP 124/66
[2018-03-29] MEDS: SODIUM CHLORIDE 1 GM TABLET PO SCH ×4 (05:45→21:24)
[2018-03-29 06:05] LABS: ANION GAP 5 mmol/L (5-15); CALCIUM 8.8 mg/dL (8.5-10.1); CHLORIDE 104 mmol/L (98-107); CREATININE 0.96 mg/dL (0.7-1.3)
[2018-03-29 08:52] VITALS: BP 102/68
[2018-03-29 14:22] VITALS: BP 146/73
[2018-03-29] MEDS: ENOXAPARIN 40 MG/0.4 ML SQ SCH (15:38)
[2018-03-29 20:04] VITALS: BP 124/67
[2018-03-30 03:40] VITALS: BP 133/64
[2018-03-30] MEDS: SODIUM CHLORIDE 1 GM TABLET PO SCH ×4 (05:49→21:44)
[2018-03-30 08:00] VITALS: BP 116/73
[2018-03-30 14:00] VITALS: BP 111/67
[2018-03-30] MEDS: ENOXAPARIN 40 MG/0.4 ML SQ SCH (15:22)
[2018-03-30 21:19] VITALS: BP 126/71
[2018-03-31 00:57] VITALS: BP 121/72
[2018-03-31] MEDS: SODIUM CHLORIDE 1 GM TABLET PO SCH ×4 (06:10→21:35)
[2018-03-31 07:40] VITALS: BP 119/75
[2018-03-31 13:48] VITALS: BP 118/69
[2018-03-31] MEDS: ENOXAPARIN 40 MG/0.4 ML SQ SCH (16:03)
[2018-03-31 19:34] VITALS: BP 153/77
[2018-04-01 01:15] VITALS: BP 133/75
[2018-04-01 04:33] LABS: ALBUMIN 3.5 g/dL (3.4-5.0); ANION GAP 7 mmol/L (5-15); CALCIUM 8.6 mg/dL (8.5-10.1); CHLORIDE 103 mmol/L (98-107); CREATININE 1.05 mg/dL (0.7-1.3)
[2018-04-01] MEDS: SODIUM CHLORIDE 1 GM TABLET PO SCH ×4 (06:00→19:57)
[2018-04-01 07:30] VITALS: BP 104/66
[2018-04-01 14:00] VITALS: BP 122/74
[2018-04-01] MEDS: ENOXAPARIN 40 MG/0.4 ML SQ SCH (16:03)
[2018-04-01 19:30] VITALS: BP 124/60
[2018-04-02 02:48] VITALS: BP 129/68
[2018-04-02 05:29] LABS: ALBUMIN 3.5 g/dL (3.4-5.0); ANION GAP 7 mmol/L (5-15); CALCIUM 8.7 mg/dL (8.5-10.1); CHLORIDE 102 mmol/L (98-107)
[2018-04-02] MEDS: SODIUM CHLORIDE 1 GM TABLET PO SCH ×4 (05:29→21:12)
[2018-04-02 05:30] LABS: CREATININE 0.95 mg/dL (0.7-1.3)
[2018-04-02 07:16] VITALS: BP 127/62
[2018-04-02 13:01] VITALS: BP 123/64
[2018-04-02] MEDS: ENOXAPARIN 40 MG/0.4 ML SQ SCH (15:01)
[2018-04-02 19:10] VITALS: BP 154/81
[2018-04-03 02:02] VITALS: BP 147/85
[2018-04-03] MEDS: SODIUM CHLORIDE 1 GM TABLET PO SCH ×4 (06:30→20:27)
[2018-04-03 06:47] VITALS: BP 108/69
[2018-04-03 13:09] VITALS: BP 98/72
[2018-04-03] MEDS: ENOXAPARIN 40 MG/0.4 ML SQ SCH (13:52)
[2018-04-03 19:42] VITALS: BP 151/76
[2018-04-04 02:10] VITALS: BP 109/65
[2018-04-04] MEDS: SODIUM CHLORIDE 1 GM TABLET PO SCH ×4 (06:48→20:32)
[2018-04-04 07:21] VITALS: BP 130/74
[2018-04-04 13:42] VITALS: BP 98/61
[2018-04-04] MEDS: ENOXAPARIN 40 MG/0.4 ML SQ SCH (15:24)
[2018-04-04 19:28] VITALS: BP 122/60
[2018-04-05 01:41] VITALS: BP 114/69
[2018-04-05 05:53] LABS: ALBUMIN 3.4 g/dL (3.4-5.0); ANION GAP 5 mmol/L (5-15); CALCIUM 9.2 mg/dL (8.5-10.1); CHLORIDE 106 mmol/L (98-107); CREATININE 0.98 mg/dL (0.7-1.3)
[2018-04-05] MEDS: SODIUM CHLORIDE 1 GM TABLET PO SCH ×4 (05:55→21:10)
[2018-04-05 07:49] VITALS: BP 117/69
[2018-04-05 13:55] VITALS: BP 100/62
[2018-04-05] MEDS: ENOXAPARIN 40 MG/0.4 ML SQ SCH (15:14)
[2018-04-05 20:10] VITALS: BP 114/66
[2018-04-06 03:59] VITALS: BP 105/62
[2018-04-06] MEDS: SODIUM CHLORIDE 1 GM TABLET PO SCH ×4 (06:37→22:33)
[2018-04-06 08:16] VITALS: BP 111/51
[2018-04-06 14:25] VITALS: BP 133/92
[2018-04-06] MEDS: ENOXAPARIN 40 MG/0.4 ML SQ SCH (15:49)
[2018-04-06 18:49] VITALS: BP 121/74
[2018-04-07 01:04] VITALS: BP 137/75
[2018-04-07] MEDS: SODIUM CHLORIDE 1 GM TABLET PO SCH ×4 (06:35→21:21)
[2018-04-07 10:13] VITALS: BP 123/57
[2018-04-07] MEDS: ENOXAPARIN 40 MG/0.4 ML SQ SCH (16:35)
[2018-04-07 17:16] VITALS: BP 114/57
[2018-04-07 19:34] VITALS: BP 113/71
[2018-04-08 01:59] VITALS: BP 128/70
[2018-04-08] MEDS: SODIUM CHLORIDE 1 GM TABLET PO SCH ×4 (06:30→19:29)
[2018-04-08 09:42] VITALS: BP 103/65
[2018-04-08] MEDS: ENOXAPARIN 40 MG/0.4 ML SQ SCH (15:19)
[2018-04-08 20:23] VITALS: BP 132/77
[2018-04-09 02:47] VITALS: BP 145/79
[2018-04-09 05:37] LABS: ANION GAP 7 mmol/L (5-15); CALCIUM 8.8 mg/dL (8.5-10.1); CHLORIDE 104 mmol/L (98-107)
[2018-04-09 05:40] LABS: CREATININE 1.01 mg/dL (0.7-1.3)
[2018-04-09] MEDS: SODIUM CHLORIDE 1 GM TABLET PO SCH ×4 (06:41→19:43)
[2018-04-09 06:59] VITALS: BP 94/58
[2018-04-09 12:55] VITALS: BP 111/68
[2018-04-09] MEDS: ENOXAPARIN 40 MG/0.4 ML SQ SCH (15:13)
[2018-04-09 19:20] VITALS: BP 107/67
[2018-04-10 02:30] VITALS: BP 110/65
[2018-04-10] MEDS: SODIUM CHLORIDE 1 GM TABLET PO SCH ×4 (05:22→19:11)
[2018-04-10 08:39] VITALS: BP 141/75
[2018-04-10 13:42] VITALS: BP 109/49
[2018-04-10] MEDS: ENOXAPARIN 40 MG/0.4 ML SQ SCH (15:52)
[2018-04-10 20:13] VITALS: BP 127/76
[2018-04-11 04:58] VITALS: BP 103/69
[2018-04-11] MEDS: SODIUM CHLORIDE 1 GM TABLET PO SCH ×4 (06:25→19:23)
[2018-04-11 10:40] VITALS: BP 104/61
[2018-04-11 12:27] VITALS: BP 111/55
[2018-04-11] MEDS: ENOXAPARIN 40 MG/0.4 ML SQ SCH (17:51)
[2018-04-11 20:08] VITALS: BP 140/79
[2018-04-12] MEDS: SODIUM CHLORIDE 1 GM TABLET PO SCH ×4 (07:19→20:12)
[2018-04-12] MEDS: ENOXAPARIN 40 MG/0.4 ML SQ SCH (16:08)
[2018-04-12 19:56] VITALS: BP 135/72
[2018-04-13 01:00] VITALS: BP 127/65
[2018-04-13 05:13] LABS: CREATININE 0.99 mg/dL (0.7-1.3)
[2018-04-13] MEDS: SODIUM CHLORIDE 1 GM TABLET PO SCH ×4 (06:02→23:45)
[2018-04-13 07:22] VITALS: BP 101/68
[2018-04-13] MEDS: ENOXAPARIN 40 MG/0.4 ML SQ SCH (15:49)
[2018-04-13 18:42] VITALS: BP 128/76
[2018-04-14] MEDS: SODIUM CHLORIDE 1 GM TABLET PO SCH ×4 (06:00→20:10)
[2018-04-14 07:35] VITALS: BP 115/70
[2018-04-14 13:15] VITALS: BP 125/74
[2018-04-14] MEDS: ENOXAPARIN 40 MG/0.4 ML SQ SCH (15:51)
[2018-04-14 19:56] VITALS: BP 142/70
[2018-04-15] MEDS: SODIUM CHLORIDE 1 GM TABLET PO SCH ×4 (06:15→20:43)
[2018-04-15 07:41] VITALS: BP 104/64
[2018-04-15 13:48] VITALS: BP 130/62
[2018-04-15] MEDS: ENOXAPARIN 40 MG/0.4 ML SQ SCH (17:04)
[2018-04-15 19:45] VITALS: BP 120/69
[2018-04-16 03:06] VITALS: BP 123/77
[2018-04-16] MEDS: SODIUM CHLORIDE 1 GM TABLET PO SCH ×4 (05:34→22:07)
[2018-04-16 06:11] LABS: ANION GAP 9 mmol/L (5-15); CALCIUM 8.9 mg/dL (8.5-10.1); CHLORIDE 108 mmol/L (98-107); CREATININE 0.96 mg/dL (0.7-1.3)
[2018-04-16 09:50] VITALS: BP 123/73
[2018-04-16 13:30] VITALS: BP 144/82
[2018-04-16] MEDS: ENOXAPARIN 40 MG/0.4 ML SQ SCH (16:19)
[2018-04-16 18:57] VITALS: BP 155/71
[2018-04-17 01:55] VITALS: BP 118/53
[2018-04-17] MEDS: SODIUM CHLORIDE 1 GM TABLET PO SCH ×4 (05:46→22:20)
[2018-04-17 08:05] VITALS: BP 122/67
[2018-04-17 13:13] VITALS: BP 125/71
[2018-04-17] MEDS: ENOXAPARIN 40 MG/0.4 ML SQ SCH (15:43)
[2018-04-17 19:40] VITALS: BP 124/67
[2018-04-18 03:47] VITALS: BP 145/79
[2018-04-18] MEDS: SODIUM CHLORIDE 1 GM TABLET PO SCH ×4 (05:03→22:20)
[2018-04-18 07:47] VITALS: BP 99/64
[2018-04-18 13:20] VITALS: BP 163/94
[2018-04-18] MEDS: ENOXAPARIN 40 MG/0.4 ML SQ SCH (16:35)
[2018-04-18 18:52] VITALS: BP 133/73
[2018-04-19 04:30] VITALS: BP 133/70
[2018-04-19] MEDS: SODIUM CHLORIDE 1 GM TABLET PO SCH ×4 (06:51→20:04)
[2018-04-19 07:35] VITALS: BP 113/62
[2018-04-19 13:44] VITALS: BP 117/68
[2018-04-19] MEDS: ENOXAPARIN 40 MG/0.4 ML SQ SCH (16:59)
[2018-04-19 20:53] VITALS: BP 136/61
[2018-04-20] MEDS: SODIUM CHLORIDE 1 GM TABLET PO SCH ×4 (06:32→21:11)
[2018-04-20 06:46] VITALS: BP 131/77
[2018-04-20 13:12] VITALS: BP 156/84
[2018-04-20] MEDS: ENOXAPARIN 40 MG/0.4 ML SQ SCH (17:35)
[2018-04-20 20:41] VITALS: BP 138/68
[2018-04-21] MEDS: SODIUM CHLORIDE 1 GM TABLET PO SCH ×4 (06:48→19:56)
[2018-04-21 07:22] VITALS: BP 147/84
[2018-04-21 13:22] VITALS: BP 155/87
[2018-04-21] MEDS: ENOXAPARIN 40 MG/0.4 ML SQ SCH (16:27)
[2018-04-21 19:54] VITALS: BP 135/75
[2018-04-22] MEDS: SODIUM CHLORIDE 1 GM TABLET PO SCH ×4 (05:38→20:12)
[2018-04-22 08:04] VITALS: BP 130/83
[2018-04-22 14:37] VITALS: BP 121/81
[2018-04-22] MEDS: ENOXAPARIN 40 MG/0.4 ML SQ SCH (17:57)
[2018-04-22 19:55] VITALS: BP 140/70
[2018-04-23 02:39] VITALS: BP 151/79
[2018-04-23] MEDS: SODIUM CHLORIDE 1 GM TABLET PO SCH ×4 (04:51→19:32)
[2018-04-23 09:05] VITALS: BP 114/68
[2018-04-23 13:42] VITALS: BP 115/75
[2018-04-23] MEDS: ENOXAPARIN 40 MG/0.4 ML SQ SCH (15:18)
[2018-04-23 19:37] VITALS: BP 148/66
[2018-04-24 03:03] VITALS: BP 151/69
[2018-04-24] MEDS: SODIUM CHLORIDE 1 GM TABLET PO SCH ×4 (04:45→21:41)
[2018-04-24 08:25] VITALS: BP 151/82
[2018-04-24 14:02] VITALS: BP 146/68
[2018-04-24] MEDS: ENOXAPARIN 40 MG/0.4 ML SQ SCH (17:23)
[2018-04-24 19:38] VITALS: BP 154/80
[2018-04-25 01:17] VITALS: BP 152/52
[2018-04-25 05:13] LABS: CREATININE 0.88 mg/dL (0.7-1.3)
[2018-04-25] MEDS: SODIUM CHLORIDE 1 GM TABLET PO SCH ×4 (06:11→22:14)
[2018-04-25 07:58] VITALS: BP 110/66
[2018-04-25 15:56] VITALS: BP 168/74
[2018-04-25] MEDS: ENOXAPARIN 40 MG/0.4 ML SQ SCH (17:42)
[2018-04-25 22:10] VITALS: BP 142/72
[2018-04-26 01:50] VITALS: BP 121/64
[2018-04-26] MEDS: SODIUM CHLORIDE 1 GM TABLET PO SCH ×4 (04:54→21:00)
[2018-04-26 07:59] VITALS: BP 158/64
[2018-04-26] MEDS: ENOXAPARIN 40 MG/0.4 ML SQ SCH (16:25)
[2018-04-26 18:46] VITALS: BP 166/84
[2018-04-27 01:30] VITALS: BP 116/79
[2018-04-27] MEDS: SODIUM CHLORIDE 1 GM TABLET PO SCH ×4 (06:29→21:32)
[2018-04-27 07:53] VITALS: BP 170/92
[2018-04-27 13:31] VITALS: BP 137/82
[2018-04-27] MEDS: ENOXAPARIN 40 MG/0.4 ML SQ SCH (15:49)
[2018-04-27 19:30] VITALS: BP 159/66
[2018-04-28 05:38] LABS: CREATININE 0.79 mg/dL (0.7-1.3)
[2018-04-28] MEDS: SODIUM CHLORIDE 1 GM TABLET PO SCH ×4 (05:42→20:47)
[2018-04-28 10:13] VITALS: BP 113/76
[2018-04-28] MEDS: ENOXAPARIN 40 MG/0.4 ML SQ SCH (15:06)
[2018-04-28 18:58] VITALS: BP 159/79
[2018-04-29] MEDS: SODIUM CHLORIDE 1 GM TABLET PO SCH ×4 (05:36→20:32)
[2018-04-29] MEDS: DOCUSATE 100 MG CAPSULE PO PRN (05:36)
[2018-04-29 07:04] VITALS: BP 124/66
[2018-04-29 12:43] VITALS: BP 125/74
[2018-04-29] MEDS: ENOXAPARIN 40 MG/0.4 ML SQ SCH (17:21)
[2018-04-29 20:25] VITALS: BP 135/81
[2018-04-30 01:23] VITALS: BP 151/80
[2018-04-30] MEDS: SODIUM CHLORIDE 1 GM TABLET PO SCH ×4 (05:30→20:18)
[2018-04-30 07:10] VITALS: BP 115/71
[2018-04-30] MEDS: ENOXAPARIN 40 MG/0.4 ML SQ SCH (18:25)
[2018-04-30 21:03] VITALS: BP 116/71
[2018-05-01 01:47] VITALS: BP 126/72
[2018-05-01 05:24] LABS: CREATININE 0.97 mg/dL (0.7-1.3)
[2018-05-01] MEDS: SODIUM CHLORIDE 1 GM TABLET PO SCH ×4 (05:32→19:38)
[2018-05-01 08:15] VITALS: BP 116/65
[2018-05-01 13:46] VITALS: BP 126/77
[2018-05-01] MEDS: ENOXAPARIN 40 MG/0.4 ML SQ SCH ×2 (16:00→19:38)
[2018-05-01 20:00] VITALS: BP 160/53
[2018-05-02 02:47] VITALS: BP 158/88
[2018-05-02] MEDS: SODIUM CHLORIDE 1 GM TABLET PO SCH ×4 (06:02→20:48)
[2018-05-02 07:50] VITALS: BP 137/69
[2018-05-02 13:17] VITALS: BP 137/69
[2018-05-02 19:23] VITALS: BP 129/74
[2018-05-02] MEDS: ENOXAPARIN 40 MG/0.4 ML SQ SCH (20:48)
[2018-05-03 01:26] VITALS: BP 115/74
[2018-05-03] MEDS: SODIUM CHLORIDE 1 GM TABLET PO SCH ×4 (06:35→21:55)
[2018-05-03 07:34] VITALS: BP 118/60
[2018-05-03] MEDS: ENOXAPARIN 40 MG/0.4 ML SQ SCH (21:55)
[2018-05-03] MEDS: DOCUSATE 100 MG CAPSULE PO PRN (21:55)
[2018-05-04 05:09] LABS: CREATININE 0.99 mg/dL (0.7-1.3)
[2018-05-04] MEDS: SODIUM CHLORIDE 1 GM TABLET PO SCH ×3 (05:28→16:21)
[2018-05-04 08:09] VITALS: BP 114/65
[2018-05-05] MEDS: SODIUM CHLORIDE 1 GM TABLET PO SCH ×5 (00:40→21:47)
[2018-05-05] MEDS: ENOXAPARIN 40 MG/0.4 ML SQ SCH ×2 (00:40→21:47)
[2018-05-05 08:04] VITALS: BP 134/76
[2018-05-06] MEDS: SODIUM CHLORIDE 1 GM TABLET PO SCH ×4 (06:16→20:17)
[2018-05-06 06:55] VITALS: BP 135/68
[2018-05-06 13:53] VITALS: BP 161/77
[2018-05-06] MEDS: ENOXAPARIN 40 MG/0.4 ML SQ SCH (20:17)
[2018-05-07 05:31] LABS: CREATININE 0.99 mg/dL (0.7-1.3)
[2018-05-07] MEDS: SODIUM CHLORIDE 1 GM TABLET PO SCH ×4 (05:32→19:53)
[2018-05-07 07:24] VITALS: BP 146/70
[2018-05-07] MEDS: DOCUSATE 100 MG CAPSULE PO PRN (10:55)
[2018-05-07] MEDS: ENOXAPARIN 40 MG/0.4 ML SQ SCH (19:53)
[2018-05-07 20:32] VITALS: BP 128/78
[2018-05-08] MEDS: SODIUM CHLORIDE 1 GM TABLET PO SCH ×4 (05:30→20:58)
[2018-05-08 07:08] VITALS: BP 100/46
[2018-05-08 13:31] VITALS: BP 121/66
[2018-05-08 20:00] VITALS: BP 138/82
[2018-05-08] MEDS: ENOXAPARIN 40 MG/0.4 ML SQ SCH (20:58)
[2018-05-09 01:12] VITALS: BP 146/71
[2018-05-09] MEDS: SODIUM CHLORIDE 1 GM TABLET PO SCH ×4 (06:31→20:40)
[2018-05-09 08:07] VITALS: BP 130/80
[2018-05-09 19:51] VITALS: BP 159/77
[2018-05-09] MEDS: ENOXAPARIN 40 MG/0.4 ML SQ SCH (20:40)
[2018-05-10 01:52] VITALS: BP 127/69
[2018-05-10] MEDS: SODIUM CHLORIDE 1 GM TABLET PO SCH ×4 (05:05→20:39)
[2018-05-10 06:02] LABS: CREATININE 0.97 mg/dL (0.7-1.3)
[2018-05-10 12:11] VITALS: BP 108/70
[2018-05-10 19:26] VITALS: BP 115/67
[2018-05-10] MEDS: ENOXAPARIN 40 MG/0.4 ML SQ SCH (20:39)
[2018-05-11] MEDS: SODIUM CHLORIDE 1 GM TABLET PO SCH ×4 (06:51→21:01)
[2018-05-11 07:55] VITALS: BP 126/60
[2018-05-11] MEDS: ENOXAPARIN 40 MG/0.4 ML SQ SCH (21:01)
[2018-05-12] MEDS: SODIUM CHLORIDE 1 GM TABLET PO SCH ×4 (05:58→21:40)
[2018-05-12 08:40] VITALS: BP 106/65
[2018-05-12] MEDS: ENOXAPARIN 40 MG/0.4 ML SQ SCH (21:40)
[2018-05-13 05:18] LABS: CREATININE 0.95 mg/dL (0.7-1.3)
[2018-05-13] MEDS: SODIUM CHLORIDE 1 GM TABLET PO SCH ×4 (06:21→20:45)
[2018-05-13 08:18] VITALS: BP 143/90
[2018-05-13] MEDS: ENOXAPARIN 40 MG/0.4 ML SQ SCH (20:45)
[2018-05-14] MEDS: SODIUM CHLORIDE 1 GM TABLET PO SCH ×4 (06:31→20:37)
[2018-05-14 08:40] VITALS: BP 149/72
[2018-05-14 19:46] VITALS: BP 132/67
[2018-05-14] MEDS: ENOXAPARIN 40 MG/0.4 ML SQ SCH (20:37)
[2018-05-15] MEDS: SODIUM CHLORIDE 1 GM TABLET PO SCH ×4 (05:46→22:28)
[2018-05-15 10:18] VITALS: BP 133/94
[2018-05-15 19:50] VITALS: BP 165/81
[2018-05-15] MEDS: ENOXAPARIN 40 MG/0.4 ML SQ SCH (22:28)
[2018-05-16 05:54] LABS: CREATININE 0.96 mg/dL (0.7-1.3)
[2018-05-16] MEDS: SODIUM CHLORIDE 1 GM TABLET PO SCH ×4 (06:20→22:23)
[2018-05-16 09:08] VITALS: BP 136/84
[2018-05-16 21:00] VITALS: BP 130/84
[2018-05-16] MEDS: ENOXAPARIN 40 MG/0.4 ML SQ SCH (22:24)
[2018-05-17] MEDS: SODIUM CHLORIDE 1 GM TABLET PO SCH ×4 (06:03→21:14)
[2018-05-17 08:48] VITALS: BP 149/75
[2018-05-17 18:28] VITALS: BP 128/74
[2018-05-17] MEDS: ENOXAPARIN 40 MG/0.4 ML SQ SCH (21:14)
[2018-05-18 02:39] VITALS: BP 132/79
[2018-05-18] MEDS: SODIUM CHLORIDE 1 GM TABLET PO SCH ×4 (05:43→21:44)
[2018-05-18 09:50] VITALS: BP 129/73
[2018-05-18] MEDS: ENOXAPARIN 40 MG/0.4 ML SQ SCH (21:44)
[2018-05-19 06:01] LABS: CREATININE 0.99 mg/dL (0.7-1.3)
[2018-05-19] MEDS: SODIUM CHLORIDE 1 GM TABLET PO SCH ×4 (06:14→22:07)
[2018-05-19 09:09] VITALS: BP 131/80
[2018-05-19 19:48] VITALS: BP 138/60
[2018-05-19] MEDS: ENOXAPARIN 40 MG/0.4 ML SQ SCH (22:07)
[2018-05-20 02:19] VITALS: BP 140/80
[2018-05-20] MEDS: SODIUM CHLORIDE 1 GM TABLET PO SCH ×4 (06:02→20:28)
[2018-05-20 09:00] VITALS: BP 159/85
[2018-05-20 20:25] VITALS: BP 152/82
[2018-05-20] MEDS: ENOXAPARIN 40 MG/0.4 ML SQ SCH (20:29)
[2018-05-21] MEDS: SODIUM CHLORIDE 1 GM TABLET PO SCH ×4 (07:04→20:23)
[2018-05-21 07:20] VITALS: BP 139/71
[2018-05-21 12:25] VITALS: BP 138/83
[2018-05-21] MEDS: ENOXAPARIN 40 MG/0.4 ML SQ SCH (20:22)
[2018-05-21 20:30] VITALS: BP 133/69
[2018-05-22] MEDS: SODIUM CHLORIDE 1 GM TABLET PO SCH ×4 (06:34→20:03)
[2018-05-22 10:39] VITALS: BP 150/73
[2018-05-22] MEDS: ENOXAPARIN 40 MG/0.4 ML SQ SCH (20:03)
[2018-05-22 20:29] VITALS: BP 149/77
[2018-05-23] MEDS: SODIUM CHLORIDE 1 GM TABLET PO SCH ×4 (06:38→20:31)
[2018-05-23 09:22] VITALS: BP 120/83
[2018-05-23] MEDS: ENOXAPARIN 40 MG/0.4 ML SQ SCH (20:31)
[2018-05-24 05:22] LABS: ANION GAP 9 mmol/L (5-15); CALCIUM 8.4 mg/dL (8.5-10.1); CHLORIDE 110 mmol/L (98-107)
[2018-05-24 05:23] LABS: CREATININE 0.91 mg/dL (0.7-1.3)
[2018-05-24] MEDS: SODIUM CHLORIDE 1 GM TABLET PO SCH ×4 (06:02→20:37)
[2018-05-24 08:20] VITALS: BP 151/73
[2018-05-24 19:15] VITALS: BP 142/79
[2018-05-24] MEDS: ENOXAPARIN 40 MG/0.4 ML SQ SCH (20:37)
[2018-05-25] MEDS: SODIUM CHLORIDE 1 GM TABLET PO SCH ×4 (05:31→21:44)
[2018-05-25 06:46] LABS: CREATININE 0.99 mg/dL (0.7-1.3)
[2018-05-25 06:50] VITALS: BP 147/75
[2018-05-25 12:30] VITALS: BP 151/82
[2018-05-25] MEDS: ENOXAPARIN 40 MG/0.4 ML SQ SCH (21:45)
[2018-05-26] MEDS: SODIUM CHLORIDE 1 GM TABLET PO SCH ×4 (06:26→21:07)
[2018-05-26] MEDS: ENOXAPARIN 40 MG/0.4 ML SQ SCH (21:07)
[2018-05-27] MEDS: SODIUM CHLORIDE 1 GM TABLET PO SCH ×4 (06:29→21:20)
[2018-05-27 08:20] VITALS: BP_SYST 146; BP_SYST 98; BP_DIAS 76; BP_DIAS 80
[2018-05-27 19:14] VITALS: BP 178/81
[2018-05-27] MEDS: ENOXAPARIN 40 MG/0.4 ML SQ SCH (21:21)
[2018-05-27 21:23] VITALS: BP 151/84
[2018-05-28 01:51] VITALS: BP 161/76
[2018-05-28 03:02] VITALS: BP 158/87
[2018-05-28] MEDS: SODIUM CHLORIDE 1 GM TABLET PO SCH ×4 (05:54→21:18)
[2018-05-28 06:13] LABS: CREATININE 0.98 mg/dL (0.7-1.3)
[2018-05-28 09:00] VITALS: BP 129/82
[2018-05-28 20:44] VITALS: BP 155/72
[2018-05-28] MEDS: ENOXAPARIN 40 MG/0.4 ML SQ SCH (21:18)
[2018-05-29 04:54] VITALS: BP 138/73
[2018-05-29] MEDS: SODIUM CHLORIDE 1 GM TABLET PO SCH ×4 (06:38→21:40)
[2018-05-29 06:51] VITALS: BP 124/61
[2018-05-29 20:19] VITALS: BP 143/79
[2018-05-29] MEDS: ENOXAPARIN 40 MG/0.4 ML SQ SCH (21:40)
[2018-05-30] MEDS: SODIUM CHLORIDE 1 GM TABLET PO SCH ×4 (05:46→20:27)
[2018-05-30 05:50] LABS: MEAN CORPUSCULAR HEMOGLOBIN 26.1 pg (27.5-34.5); MEAN CORPUSCULAR HGB CONC 32.6 g/dL (33.2-36.2); MEAN CORPUSCULAR VOLUME 80.1 fL (81-97); RED BLOOD COUNT 5.73 x10^6/uL (4.38-5.82); RED CELL DISTRIBUTION WIDTH 15.5 % (9.4-14.8)
[2018-05-30 05:57] LABS: ALBUMIN 3.4 g/dL (3.4-5.0); ANION GAP 7 mmol/L (5-15); CALCIUM 8.8 mg/dL (8.5-10.1); CHLORIDE 107 mmol/L (98-107); CREATININE 0.98 mg/dL (0.7-1.3)
[2018-05-30 06:09] LABS: MEAN PLATELET VOLUME 10.5 fL (7.4-10.4); PLATELET COUNT 204 x10^3/uL (130-400)
[2018-05-30 06:10] LABS: BASOPHILS # (AUTO) 0.03 x10^3/uL (0-0.1); BASOPHILS % (AUTO) 1 % (0-1); EOSINOPHILS # (AUTO) 0.33 x10^3/uL (0-0.4); EOSINOPHILS % (AUTO) 7 % (1-7); LYMPHOCYTES % (AUTO) 38 % (22-44); MD SCAN; MONOCYTES # (AUTO) 0.43 x10^3/uL (0.2-0.8); MONOCYTES % (AUTO) 10 % (2-9); NEUTROPHILS % (AUTO) 45 % (42-75)
[2018-05-30 06:58] VITALS: BP 148/75
[2018-05-30 19:43] VITALS: BP 161/75
[2018-05-30] MEDS: ENOXAPARIN 40 MG/0.4 ML SQ SCH (20:27)
[2018-05-31] MEDS: SODIUM CHLORIDE 1 GM TABLET PO SCH ×4 (06:29→20:02)
[2018-05-31 09:41] VITALS: BP 160/71
[2018-05-31 19:33] VITALS: BP 143/85
[2018-05-31] MEDS: ENOXAPARIN 40 MG/0.4 ML SQ SCH (20:02)
[2018-06-01] MEDS: SODIUM CHLORIDE 1 GM TABLET PO SCH ×4 (05:32→20:35)
[2018-06-01 06:37] VITALS: BP 126/72
[2018-06-01 12:42] VITALS: BP 155/75
[2018-06-01] MEDS: ENOXAPARIN 40 MG/0.4 ML SQ SCH (20:35)
[2018-06-02] MEDS: SODIUM CHLORIDE 1 GM TABLET PO SCH ×4 (06:03→22:14)
[2018-06-02 09:00] VITALS: BP 152/87
[2018-06-02] MEDS ORDERED: ONDANSETRON ODT 4 MG PO ONE (12:30)
[2018-06-02 14:19] VITALS: BP 152/87
[2018-06-02 14:20] VITALS: BP 152/87
[2018-06-02 19:13] VITALS: BP 158/87
[2018-06-02] MEDS: ENOXAPARIN 40 MG/0.4 ML SQ SCH (22:14)
[2018-06-03 06:56] VITALS: BP 98/55
[2018-06-03] MEDS: SODIUM CHLORIDE 1 GM TABLET PO SCH ×4 (09:26→21:17)
[2018-06-03 12:46] VITALS: BP 116/71
[2018-06-03 19:56] VITALS: BP 149/76
[2018-06-03] MEDS: ENOXAPARIN 40 MG/0.4 ML SQ SCH (21:17)
[2018-06-04] MEDS: SODIUM CHLORIDE 1 GM TABLET PO SCH ×4 (06:26→20:02)
[2018-06-04 09:14] VITALS: BP 128/73
[2018-06-04] MEDS: ENOXAPARIN 40 MG/0.4 ML SQ SCH (20:02)
[2018-06-05] MEDS: SODIUM CHLORIDE 1 GM TABLET PO SCH ×4 (05:41→20:58)
[2018-06-05 08:40] VITALS: BP 140/68
[2018-06-05] MEDS: ENOXAPARIN 40 MG/0.4 ML SQ SCH (20:58)
[2018-06-06] MEDS: SODIUM CHLORIDE 1 GM TABLET PO SCH ×4 (06:40→20:58)
[2018-06-06 08:56] VITALS: BP 108/68
[2018-06-06] MEDS: ENOXAPARIN 40 MG/0.4 ML SQ SCH (20:58)
[2018-06-07] MEDS: SODIUM CHLORIDE 1 GM TABLET PO SCH ×4 (06:12→22:12)
[2018-06-07 09:00] VITALS: BP 116/82
[2018-06-07] MEDS: ENOXAPARIN 40 MG/0.4 ML SQ SCH (22:12)
[2018-06-08 06:03] LABS: CREATININE 1.07 mg/dL (0.7-1.3)
[2018-06-08] MEDS: SODIUM CHLORIDE 1 GM TABLET PO SCH ×4 (06:24→21:24)
[2018-06-08 07:05] VITALS: BP 104/67
[2018-06-08] MEDS: ENOXAPARIN 40 MG/0.4 ML SQ SCH (21:24)
[2018-06-09] MEDS: SODIUM CHLORIDE 1 GM TABLET PO SCH ×4 (06:42→23:36)
[2018-06-09 08:00] VITALS: BP 137/74
[2018-06-09] MEDS: ENOXAPARIN 40 MG/0.4 ML SQ SCH (23:37)
[2018-06-10] MEDS: SODIUM CHLORIDE 1 GM TABLET PO SCH ×4 (06:47→21:16)
[2018-06-10 09:00] VITALS: BP 118/77
[2018-06-10] MEDS: ENOXAPARIN 40 MG/0.4 ML SQ SCH (21:16)
[2018-06-11] MEDS: SODIUM CHLORIDE 1 GM TABLET PO SCH ×4 (06:01→21:00)
[2018-06-11 07:07] VITALS: BP 138/61
[2018-06-11] MEDS: ENOXAPARIN 40 MG/0.4 ML SQ SCH (21:00)
[2018-06-12 07:44] VITALS: BP 133/64
[2018-06-12] MEDS: SODIUM CHLORIDE 1 GM TABLET PO SCH ×4 (08:00→21:00)
[2018-06-12 19:48] VITALS: BP 167/88
[2018-06-12] MEDS: ENOXAPARIN 40 MG/0.4 ML SQ SCH (21:00)
[2018-06-13] MEDS: SODIUM CHLORIDE 1 GM TABLET PO SCH ×4 (06:00→20:59)
[2018-06-13 06:32] VITALS: BP 122/72
[2018-06-13 19:22] VITALS: BP 168/77
[2018-06-13] MEDS: ENOXAPARIN 40 MG/0.4 ML SQ SCH (20:59)
[2018-06-14 05:58] LABS: CREATININE 0.95 mg/dL (0.7-1.3)
[2018-06-14] MEDS: SODIUM CHLORIDE 1 GM TABLET PO SCH ×4 (06:04→21:26)
[2018-06-14 07:12] VITALS: BP 106/70
[2018-06-14] MEDS: ENOXAPARIN 40 MG/0.4 ML SQ SCH (21:26)
[2018-06-15] MEDS: SODIUM CHLORIDE 1 GM TABLET PO SCH ×4 (05:27→23:01)
[2018-06-15 07:21] VITALS: BP 137/74
[2018-06-15] MEDS: ENOXAPARIN 40 MG/0.4 ML SQ SCH (23:02)
[2018-06-16] MEDS: SODIUM CHLORIDE 1 GM TABLET PO SCH ×4 (05:51→20:34)
[2018-06-16 07:42] VITALS: BP 103/57
[2018-06-16] MEDS: ENOXAPARIN 40 MG/0.4 ML SQ SCH (20:34)
[2018-06-17] MEDS: DOCUSATE 100 MG CAPSULE PO PRN (06:33)
[2018-06-17] MEDS: SODIUM CHLORIDE 1 GM TABLET PO SCH ×4 (06:33→22:16)
[2018-06-17 13:11] VITALS: BP 146/82
[2018-06-17] MEDS: ENOXAPARIN 40 MG/0.4 ML SQ SCH (22:18)
[2018-06-18] MEDS: SODIUM CHLORIDE 1 GM TABLET PO SCH ×4 (05:22→20:52)
[2018-06-18 05:43] LABS: ANION GAP 11 mmol/L (5-15); CALCIUM 8.4 mg/dL (8.5-10.1); CHLORIDE 97 mmol/L (98-107); CREATININE 0.93 mg/dL (0.7-1.3)
[2018-06-18 08:44] VITALS: BP 140/78
[2018-06-18] MEDS: ENOXAPARIN 40 MG/0.4 ML SQ SCH (20:53)
[2018-06-19] MEDS: SODIUM CHLORIDE 1 GM TABLET PO SCH ×4 (06:16→21:02)
[2018-06-19 08:23] VITALS: BP 148/65
[2018-06-19 19:44] VITALS: BP 177/82
[2018-06-19 20:52] VITALS: BP 154/86
[2018-06-19] MEDS: ENOXAPARIN 40 MG/0.4 ML SQ SCH (21:02)
[2018-06-20 06:12] LABS: ANION GAP 9 mmol/L (5-15); CALCIUM 8.3 mg/dL (8.5-10.1); CHLORIDE 100 mmol/L (98-107); CREATININE 1.05 mg/dL (0.7-1.3)
[2018-06-20] MEDS: SODIUM CHLORIDE 1 GM TABLET PO SCH ×4 (06:36→22:17)
[2018-06-20 08:15] VITALS: BP 124/79
[2018-06-20] MEDS: ENOXAPARIN 40 MG/0.4 ML SQ SCH (22:17)
[2018-06-21] MEDS: SODIUM CHLORIDE 1 GM TABLET PO SCH ×4 (06:08→20:44)
[2018-06-21] MEDS: ENOXAPARIN 40 MG/0.4 ML SQ SCH (20:45)
[2018-06-22] MEDS: SODIUM CHLORIDE 1 GM TABLET PO SCH ×4 (06:04→21:47)
[2018-06-22 06:56] VITALS: BP 114/62
[2018-06-22 12:40] VITALS: BP 119/58
[2018-06-22] MEDS: ENOXAPARIN 40 MG/0.4 ML SQ SCH (21:47)
[2018-06-23] MEDS: SODIUM CHLORIDE 1 GM TABLET PO SCH ×4 (05:58→20:07)
[2018-06-23 06:52] LABS: ANION GAP 9 mmol/L (5-15); CALCIUM 8.4 mg/dL (8.5-10.1); CHLORIDE 102 mmol/L (98-107); CREATININE 1.02 mg/dL (0.7-1.3)
[2018-06-23 09:16] VITALS: BP 123/96
[2018-06-23 13:20] VITALS: BP 129/80
[2018-06-23] MEDS: ENOXAPARIN 40 MG/0.4 ML SQ SCH (20:08)
[2018-06-24] MEDS: SODIUM CHLORIDE 1 GM TABLET PO SCH ×4 (06:00→19:37)
[2018-06-24 08:44] VITALS: BP 122/69
[2018-06-24 19:19] VITALS: BP 144/75
[2018-06-24] MEDS: ENOXAPARIN 40 MG/0.4 ML SQ SCH (19:37)
[2018-06-25 03:05] VITALS: BP 123/68
[2018-06-25] MEDS: SODIUM CHLORIDE 1 GM TABLET PO SCH ×4 (05:34→20:40)
[2018-06-25 07:35] VITALS: BP 135/63
[2018-06-25 12:47] VITALS: BP 120/66
[2018-06-25 18:52] VITALS: BP 117/56
[2018-06-25] MEDS: ENOXAPARIN 40 MG/0.4 ML SQ SCH (20:40)
[2018-06-26] MEDS: SODIUM CHLORIDE 1 GM TABLET PO SCH ×4 (06:13→20:06)
[2018-06-26 10:15] VITALS: BP 116/68
[2018-06-26 13:34] VITALS: BP 112/65
[2018-06-26 19:10] VITALS: BP 150/75
[2018-06-26] MEDS: ENOXAPARIN 40 MG/0.4 ML SQ SCH (20:06)
[2018-06-27 03:02] VITALS: BP 131/60
[2018-06-27] MEDS: SODIUM CHLORIDE 1 GM TABLET PO SCH ×4 (06:26→21:41)
[2018-06-27 08:14] VITALS: BP 109/66
[2018-06-27 15:28] VITALS: BP 160/72
[2018-06-27 19:50] VITALS: BP 170/72
[2018-06-27 21:40] VITALS: BP 145/70
[2018-06-27] MEDS: ENOXAPARIN 40 MG/0.4 ML SQ SCH (21:41)
[2018-06-28] MEDS: SODIUM CHLORIDE 1 GM TABLET PO SCH ×4 (05:29→22:12)
[2018-06-28 05:50] LABS: ANION GAP 7 mmol/L (5-15); CALCIUM 9.3 mg/dL (8.5-10.1); CHLORIDE 106 mmol/L (98-107); CREATININE 1.02 mg/dL (0.7-1.3)
[2018-06-28 07:19] VITALS: BP 122/72
[2018-06-28 13:42] VITALS: BP 154/89
[2018-06-28 19:55] VITALS: BP 144/81
[2018-06-28] MEDS: ENOXAPARIN 40 MG/0.4 ML SQ SCH (22:12)
[2018-06-28] MEDS: DOCUSATE 100 MG CAPSULE PO PRN (22:12)
[2018-06-29 01:06] VITALS: BP 129/76
[2018-06-29] MEDS: SODIUM CHLORIDE 1 GM TABLET PO SCH ×4 (06:01→20:39)
[2018-06-29 07:45] VITALS: BP 101/64
[2018-06-29 19:42] VITALS: BP 166/75
[2018-06-29] MEDS: ENOXAPARIN 40 MG/0.4 ML SQ SCH (20:39)
[2018-06-30 00:14] VITALS: BP 131/76
[2018-06-30] MEDS: SODIUM CHLORIDE 1 GM TABLET PO SCH ×4 (05:57→20:47)
[2018-06-30 08:00] VITALS: BP 132/64
[2018-06-30 14:00] VITALS: BP 124/72
[2018-06-30 18:30] VITALS: BP 160/71
[2018-06-30] MEDS: ENOXAPARIN 40 MG/0.4 ML SQ SCH (20:48)
[2018-07-01 00:37] VITALS: BP 114/62
[2018-07-01] MEDS: SODIUM CHLORIDE 1 GM TABLET PO SCH ×4 (05:57→20:37)
[2018-07-01 08:00] VITALS: BP 128/76
[2018-07-01 14:00] VITALS: BP 102/61
[2018-07-01 20:09] VITALS: BP 162/89
[2018-07-01] MEDS: ENOXAPARIN 40 MG/0.4 ML SQ SCH (20:37)
[2018-07-02 03:00] VITALS: BP 114/76
[2018-07-02] MEDS: SODIUM CHLORIDE 1 GM TABLET PO SCH ×4 (06:38→21:50)
[2018-07-02 07:19] VITALS: BP 146/53
[2018-07-02 12:12] VITALS: BP 138/74
[2018-07-02 19:32] VITALS: BP 145/73
[2018-07-02] MEDS: ENOXAPARIN 40 MG/0.4 ML SQ SCH (21:50)
[2018-07-03] MEDS: SODIUM CHLORIDE 1 GM TABLET PO SCH ×4 (05:27→21:42)
[2018-07-03 11:07] VITALS: BP 168/74
[2018-07-03 12:24] VITALS: BP 163/83
[2018-07-03 20:01] VITALS: BP 159/82
[2018-07-03] MEDS: ENOXAPARIN 40 MG/0.4 ML SQ SCH (21:43)
[2018-07-04] MEDS: SODIUM CHLORIDE 1 GM TABLET PO SCH ×4 (05:13→21:16)
[2018-07-04 06:58] VITALS: BP 120/77
[2018-07-04 20:00] VITALS: BP 126/74
[2018-07-04] MEDS: ENOXAPARIN 40 MG/0.4 ML SQ SCH (21:16)
[2018-07-05] MEDS: SODIUM CHLORIDE 1 GM TABLET PO SCH ×4 (05:34→22:29)
[2018-07-05 08:38] VITALS: BP 153/89
[2018-07-05] MEDS: ENOXAPARIN 40 MG/0.4 ML SQ SCH (22:29)
[2018-07-06 05:30] LABS: CREATININE 1.03 mg/dL (0.7-1.3)
[2018-07-06] MEDS: SODIUM CHLORIDE 1 GM TABLET PO SCH ×4 (06:39→23:25)
[2018-07-06 08:58] VITALS: BP 129/75
[2018-07-06 19:21] VITALS: BP 91/42
[2018-07-06] MEDS: ENOXAPARIN 40 MG/0.4 ML SQ SCH (21:00)
[2018-07-07] MEDS: SODIUM CHLORIDE 1 GM TABLET PO SCH ×4 (06:34→22:18)
[2018-07-07 09:45] VITALS: BP 163/70
[2018-07-07] MEDS: ENOXAPARIN 40 MG/0.4 ML SQ SCH (22:19)
[2018-07-08] MEDS: SODIUM CHLORIDE 1 GM TABLET PO SCH ×4 (06:42→20:41)
[2018-07-08 07:56] VITALS: BP 142/76
[2018-07-08 15:02] VITALS: BP 97/60
[2018-07-08 20:38] VITALS: BP 146/77
[2018-07-08] MEDS: ENOXAPARIN 40 MG/0.4 ML SQ SCH (20:41)
[2018-07-09] MEDS: SODIUM CHLORIDE 1 GM TABLET PO SCH ×4 (06:32→21:16)
[2018-07-09 07:23] VITALS: BP 123/79
[2018-07-09 21:13] VITALS: BP 137/69
[2018-07-09] MEDS: ENOXAPARIN 40 MG/0.4 ML SQ SCH (21:16)
[2018-07-10] MEDS: SODIUM CHLORIDE 1 GM TABLET PO SCH ×4 (05:42→20:16)
[2018-07-10 08:30] VITALS: BP 131/71
[2018-07-10] MEDS: ENOXAPARIN 40 MG/0.4 ML SQ SCH (20:16)
[2018-07-10 20:35] VITALS: BP 155/68
[2018-07-11] MEDS: SODIUM CHLORIDE 1 GM TABLET PO SCH ×4 (06:07→20:52)
[2018-07-11 07:00] VITALS: BP 128/79
[2018-07-11 13:13] VITALS: BP 125/87
[2018-07-11] MEDS: ENOXAPARIN 40 MG/0.4 ML SQ SCH (20:52)
[2018-07-12] MEDS: SODIUM CHLORIDE 1 GM TABLET PO SCH ×4 (06:01→21:40)
[2018-07-12 11:08] VITALS: BP 125/77
[2018-07-12] MEDS: ENOXAPARIN 40 MG/0.4 ML SQ SCH (21:40)
[2018-07-13] MEDS: SODIUM CHLORIDE 1 GM TABLET PO SCH ×4 (07:45→21:03)
[2018-07-13 07:50] VITALS: BP 134/81
[2018-07-13 14:26] VITALS: BP 134/63
[2018-07-13] MEDS: ENOXAPARIN 40 MG/0.4 ML SQ SCH (21:03)
[2018-07-14] MEDS: SODIUM CHLORIDE 1 GM TABLET PO SCH ×4 (05:58→21:05)
[2018-07-14 08:46] VITALS: BP 176/79
[2018-07-14] MEDS: QUETIAPINE 25MG TABLET PO SCH ×2 (10:19→21:00)
[2018-07-14] MEDS: ENOXAPARIN 40 MG/0.4 ML SQ SCH (21:05)
[2018-07-15] MEDS: SODIUM CHLORIDE 1 GM TABLET PO SCH ×4 (06:10→21:01)
[2018-07-15 08:38] VITALS: BP 145/73
[2018-07-15] MEDS: QUETIAPINE 25MG TABLET PO SCH ×2 (09:00→21:01)
[2018-07-15 20:24] VITALS: BP 145/66
[2018-07-15] MEDS: ENOXAPARIN 40 MG/0.4 ML SQ SCH (21:00)
[2018-07-16 06:08] LABS: CREATININE 1.01 mg/dL (0.7-1.3)
[2018-07-16] MEDS: SODIUM CHLORIDE 1 GM TABLET PO SCH ×4 (06:21→21:33)
[2018-07-16 08:26] VITALS: BP 156/81
[2018-07-16] MEDS: ENOXAPARIN 40 MG/0.4 ML SQ SCH (21:00)
[2018-07-16] MEDS: QUETIAPINE 25MG TABLET PO SCH (21:33)
[2018-07-17] MEDS: SODIUM CHLORIDE 1 GM TABLET PO SCH ×4 (06:03→20:55)
[2018-07-17 11:20] VITALS: BP 131/64
[2018-07-17] MEDS: QUETIAPINE 25MG TABLET PO SCH (20:55)
[2018-07-17] MEDS: ENOXAPARIN 40 MG/0.4 ML SQ SCH (20:55)
[2018-07-18] MEDS: SODIUM CHLORIDE 1 GM TABLET PO SCH ×4 (05:53→19:18)
[2018-07-18 08:21] VITALS: BP 122/70
[2018-07-18] MEDS: QUETIAPINE 25MG TABLET PO SCH (19:19)
[2018-07-18] MEDS: ENOXAPARIN 40 MG/0.4 ML SQ SCH (19:19)
[2018-07-18 19:53] VITALS: BP 156/69
[2018-07-19 05:18] LABS: CREATININE 1.02 mg/dL (0.7-1.3)
[2018-07-19] MEDS: SODIUM CHLORIDE 1 GM TABLET PO SCH ×4 (05:50→19:54)
[2018-07-19 08:00] VITALS: BP 122/62
[2018-07-19 19:26] VITALS: BP 194/74
[2018-07-19] MEDS: QUETIAPINE 25MG TABLET PO SCH (19:54)
[2018-07-19] MEDS: ENOXAPARIN 40 MG/0.4 ML SQ SCH (19:55)
[2018-07-20] MEDS: SODIUM CHLORIDE 1 GM TABLET PO SCH ×4 (06:08→19:41)
[2018-07-20 06:21] LABS: ALBUMIN 3.5 g/dL (3.4-5.0); ANION GAP 9 mmol/L (5-15); CALCIUM 8.8 mg/dL (8.5-10.1); CHLORIDE 104 mmol/L (98-107); CREATININE 1.07 mg/dL (0.7-1.3)
[2018-07-20 07:50] VITALS: BP 127/65
[2018-07-20] MEDS: ENOXAPARIN 40 MG/0.4 ML SQ SCH (19:41)
[2018-07-20] MEDS: QUETIAPINE 25MG TABLET PO SCH (19:41)
[2018-07-20 19:46] VITALS: BP 178/79
[2018-07-21 02:17] VITALS: BP 114/69
[2018-07-21] MEDS: SODIUM CHLORIDE 1 GM TABLET PO SCH ×4 (06:07→21:17)
[2018-07-21 07:33] VITALS: BP 148/80
[2018-07-21 19:37] VITALS: BP 161/92
[2018-07-21] MEDS: ENOXAPARIN 40 MG/0.4 ML SQ SCH (20:59)
[2018-07-21] MEDS: QUETIAPINE 25MG TABLET PO SCH ×2 (21:05→21:16)
[2018-07-22 08:45] VITALS: BP 126/76
[2018-07-22] MEDS: SODIUM CHLORIDE 1 GM TABLET PO SCH ×4 (09:29→23:44)
[2018-07-22 20:32] VITALS: BP 152/78
[2018-07-22] MEDS: QUETIAPINE 25MG TABLET PO SCH (23:44)
[2018-07-22] MEDS: ENOXAPARIN 40 MG/0.4 ML SQ SCH (23:45)
[2018-07-23] MEDS: SODIUM CHLORIDE 1 GM TABLET PO SCH ×4 (06:55→19:56)
[2018-07-23 08:00] VITALS: BP 122/76
[2018-07-23] MEDS: QUETIAPINE 25MG TABLET PO SCH (19:56)
[2018-07-23] MEDS: ENOXAPARIN 40 MG/0.4 ML SQ SCH (19:56)
[2018-07-24] MEDS: SODIUM CHLORIDE 1 GM TABLET PO SCH ×4 (05:51→21:08)
[2018-07-24 08:37] VITALS: BP 124/57
[2018-07-24 19:18] VITALS: BP 171/72
[2018-07-24 21:00] VITALS: BP 135/75
[2018-07-24] MEDS: QUETIAPINE 25MG TABLET PO SCH (21:08)
[2018-07-24] MEDS: ENOXAPARIN 40 MG/0.4 ML SQ SCH (21:09)
[2018-07-25] MEDS: SODIUM CHLORIDE 1 GM TABLET PO SCH ×4 (05:47→21:34)
[2018-07-25 06:41] LABS: CREATININE 0.99 mg/dL (0.7-1.3)
[2018-07-25 08:25] VITALS: BP 135/78
[2018-07-25] MEDS: ENOXAPARIN 40 MG/0.4 ML SQ SCH (21:34)
[2018-07-25] MEDS: QUETIAPINE 25MG TABLET PO SCH (21:34)
[2018-07-26] MEDS: SODIUM CHLORIDE 1 GM TABLET PO SCH ×4 (06:47→21:27)
[2018-07-26 09:12] VITALS: BP 149/79
[2018-07-26 16:03] VITALS: BP 166/87
[2018-07-26 19:15] VITALS: BP 169/81
[2018-07-26] MEDS: ENOXAPARIN 40 MG/0.4 ML SQ SCH (21:27)
[2018-07-26] MEDS: QUETIAPINE 25MG TABLET PO SCH (21:27)
[2018-07-27] MEDS: SODIUM CHLORIDE 1 GM TABLET PO SCH ×4 (06:26→20:59)
[2018-07-27 08:53] VITALS: BP 138/79
[2018-07-27] MEDS: QUETIAPINE 25MG TABLET PO SCH (20:59)
[2018-07-27] MEDS: ENOXAPARIN 40 MG/0.4 ML SQ SCH (20:59)
[2018-07-28] MEDS: SODIUM CHLORIDE 1 GM TABLET PO SCH ×4 (06:06→19:37)
[2018-07-28 09:30] VITALS: BP 144/75
[2018-07-28] MEDS: QUETIAPINE 25MG TABLET PO SCH (19:37)
[2018-07-28] MEDS: ENOXAPARIN 40 MG/0.4 ML SQ SCH (19:38)
[2018-07-28 19:50] VITALS: BP 168/84
[2018-07-29] MEDS: SODIUM CHLORIDE 1 GM TABLET PO SCH ×4 (04:48→21:34)
[2018-07-29 05:33] LABS: CREATININE 1.03 mg/dL (0.7-1.3)
[2018-07-29 08:03] VITALS: BP 138/75
[2018-07-29 13:45] VITALS: BP 165/83
[2018-07-29 19:30] VITALS: BP 159/86
[2018-07-29] MEDS: QUETIAPINE 25MG TABLET PO SCH (21:35)
[2018-07-29] MEDS: ENOXAPARIN 40 MG/0.4 ML SQ SCH (21:35)
[2018-07-30] MEDS: SODIUM CHLORIDE 1 GM TABLET PO SCH ×4 (06:34→21:03)
[2018-07-30 07:06] VITALS: BP 110/71
[2018-07-30 18:35] VITALS: BP 166/86
[2018-07-30] MEDS: ENOXAPARIN 40 MG/0.4 ML SQ SCH (21:03)
[2018-07-30] MEDS: QUETIAPINE 25MG TABLET PO SCH (21:03)
[2018-07-31] MEDS: SODIUM CHLORIDE 1 GM TABLET PO SCH ×4 (06:08→20:24)
[2018-07-31 09:05] VITALS: BP 117/58
[2018-07-31] MEDS: QUETIAPINE 25MG TABLET PO SCH (20:25)
[2018-07-31] MEDS: ENOXAPARIN 40 MG/0.4 ML SQ SCH (20:25)
[2018-07-31 21:08] VITALS: BP 167/81
[2018-08-01] MEDS: SODIUM CHLORIDE 1 GM TABLET PO SCH ×4 (05:48→21:54)
[2018-08-01 06:42] LABS: CREATININE 1.02 mg/dL (0.7-1.3)
[2018-08-01 06:56] VITALS: BP 128/59
[2018-08-01] MEDS: ENOXAPARIN 40 MG/0.4 ML SQ SCH (21:54)
[2018-08-01] MEDS: QUETIAPINE 25MG TABLET PO SCH (21:54)
[2018-08-01] MEDS: DOCUSATE 100 MG CAPSULE PO PRN (21:54)
[2018-08-02] MEDS: SODIUM CHLORIDE 1 GM TABLET PO SCH ×4 (05:51→20:41)
[2018-08-02 09:31] VITALS: BP 111/69
[2018-08-02] MEDS: QUETIAPINE 25MG TABLET PO SCH (20:41)
[2018-08-02] MEDS: ENOXAPARIN 40 MG/0.4 ML SQ SCH (20:41)
[2018-08-03] MEDS: SODIUM CHLORIDE 1 GM TABLET PO SCH ×4 (05:37→20:51)
[2018-08-03 08:13] VITALS: BP 117/65
[2018-08-03] MEDS: ENOXAPARIN 40 MG/0.4 ML SQ SCH (20:51)
[2018-08-03] MEDS: QUETIAPINE 25MG TABLET PO SCH (20:51)
[2018-08-04 05:35] LABS: CREATININE 1.01 mg/dL (0.7-1.3)
[2018-08-04] MEDS: SODIUM CHLORIDE 1 GM TABLET PO SCH ×4 (06:19→20:56)
[2018-08-04 08:17] VITALS: BP 121/71
[2018-08-04] MEDS: QUETIAPINE 25MG TABLET PO SCH (20:57)
[2018-08-04] MEDS: ENOXAPARIN 40 MG/0.4 ML SQ SCH (20:57)
[2018-08-05] MEDS: SODIUM CHLORIDE 1 GM TABLET PO SCH ×4 (06:17→20:08)
[2018-08-05 08:13] VITALS: BP 158/72
[2018-08-05] MEDS: ENOXAPARIN 40 MG/0.4 ML SQ SCH (20:08)
[2018-08-05] MEDS: QUETIAPINE 25MG TABLET PO SCH (20:09)
[2018-08-06] MEDS: SODIUM CHLORIDE 1 GM TABLET PO SCH ×4 (06:03→21:03)
[2018-08-06 06:35] VITALS: BP 110/66
[2018-08-06] MEDS: ENOXAPARIN 40 MG/0.4 ML SQ SCH (21:04)
[2018-08-06] MEDS: QUETIAPINE 25MG TABLET PO SCH (21:04)
[2018-08-07 06:10] LABS: CREATININE 1.15 mg/dL (0.7-1.3)
[2018-08-07] MEDS: SODIUM CHLORIDE 1 GM TABLET PO SCH ×4 (06:13→20:57)
[2018-08-07 06:53] VITALS: BP 109/65
[2018-08-07] MEDS: QUETIAPINE 25MG TABLET PO SCH (20:57)
[2018-08-07] MEDS: ENOXAPARIN 40 MG/0.4 ML SQ SCH (20:58)
[2018-08-08] MEDS: SODIUM CHLORIDE 1 GM TABLET PO SCH ×4 (05:22→21:22)
[2018-08-08 07:30] VITALS: BP 126/75
[2018-08-08 18:40] VITALS: BP 101/57
[2018-08-08 19:37] VITALS: BP 132/66
[2018-08-08] MEDS: QUETIAPINE 25MG TABLET PO SCH (21:22)
[2018-08-08] MEDS: ENOXAPARIN 40 MG/0.4 ML SQ SCH (21:23)
[2018-08-09 01:16] VITALS: BP 114/58
[2018-08-09] MEDS: SODIUM CHLORIDE 1 GM TABLET PO SCH ×4 (05:25→20:11)
[2018-08-09 09:00] VITALS: BP 126/75
[2018-08-09] MEDS: QUETIAPINE 25MG TABLET PO SCH (20:11)
[2018-08-09] MEDS: ENOXAPARIN 40 MG/0.4 ML SQ SCH (20:12)
[2018-08-10] MEDS: SODIUM CHLORIDE 1 GM TABLET PO SCH ×4 (06:18→20:00)
[2018-08-10 07:25] LABS: CREATININE 0.99 mg/dL (0.7-1.3)
[2018-08-10 08:33] VITALS: BP 92/57
[2018-08-10 12:30] VITALS: BP 148/86
[2018-08-10] MEDS: QUETIAPINE 25MG TABLET PO SCH (20:00)
[2018-08-10] MEDS: ENOXAPARIN 40 MG/0.4 ML SQ SCH (20:00)
[2018-08-11] MEDS: SODIUM CHLORIDE 1 GM TABLET PO SCH ×4 (06:17→21:15)
[2018-08-11 08:20] VITALS: BP 133/80
[2018-08-11] MEDS: ENOXAPARIN 40 MG/0.4 ML SQ SCH (21:15)
[2018-08-11] MEDS: QUETIAPINE 25MG TABLET PO SCH (21:16)
[2018-08-12] MEDS: SODIUM CHLORIDE 1 GM TABLET PO SCH ×4 (06:36→22:16)
[2018-08-12 08:14] VITALS: BP 149/72
[2018-08-12 19:11] VITALS: BP 183/74
[2018-08-12] MEDS: ENOXAPARIN 40 MG/0.4 ML SQ SCH (20:05)
[2018-08-12] MEDS: QUETIAPINE 25MG TABLET PO SCH (20:06)
[2018-08-13 04:54] VITALS: BP 104/67
[2018-08-13] MEDS: SODIUM CHLORIDE 1 GM TABLET PO SCH ×4 (05:28→20:06)
[2018-08-13 05:57] LABS: CREATININE 0.96 mg/dL (0.7-1.3)
[2018-08-13 07:06] VITALS: BP 138/57
[2018-08-13 19:11] VITALS: BP 178/79
[2018-08-13] MEDS: ENOXAPARIN 40 MG/0.4 ML SQ SCH (20:06)
[2018-08-13] MEDS: QUETIAPINE 25MG TABLET PO SCH (20:06)
[2018-08-14] MEDS: SODIUM CHLORIDE 1 GM TABLET PO SCH ×4 (06:12→20:46)
[2018-08-14 06:44] VITALS: BP 145/64
[2018-08-14] MEDS: QUETIAPINE 25MG TABLET PO SCH (20:46)
[2018-08-14] MEDS: ENOXAPARIN 40 MG/0.4 ML SQ SCH (20:46)
[2018-08-15] MEDS: SODIUM CHLORIDE 1 GM TABLET PO SCH ×4 (06:01→20:42)
[2018-08-15 07:54] VITALS: BP 115/71
[2018-08-15] MEDS: QUETIAPINE 25MG TABLET PO SCH (20:42)
[2018-08-15] MEDS: ENOXAPARIN 40 MG/0.4 ML SQ SCH (20:43)
[2018-08-16 05:29] LABS: CREATININE 1.06 mg/dL (0.7-1.3)
[2018-08-16] MEDS: SODIUM CHLORIDE 1 GM TABLET PO SCH ×4 (05:54→20:53)
[2018-08-16 08:23] VITALS: BP 119/67
[2018-08-16] MEDS: QUETIAPINE 25MG TABLET PO SCH (20:54)
[2018-08-16] MEDS: ENOXAPARIN 40 MG/0.4 ML SQ SCH (20:54)
[2018-08-16] MEDS: DOCUSATE 100 MG CAPSULE PO PRN (20:54)
[2018-08-17] MEDS: SODIUM CHLORIDE 1 GM TABLET PO SCH ×4 (06:17→21:26)
[2018-08-17 08:15] VITALS: BP 133/63
[2018-08-17 15:59] VITALS: BP 153/111
[2018-08-17] MEDS: QUETIAPINE 25MG TABLET PO SCH (21:27)
[2018-08-17] MEDS: ENOXAPARIN 40 MG/0.4 ML SQ SCH (21:29)
[2018-08-18] MEDS: SODIUM CHLORIDE 1 GM TABLET PO SCH ×4 (06:12→21:05)
[2018-08-18 08:58] VITALS: BP 115/50
[2018-08-18] MEDS: QUETIAPINE 25MG TABLET PO SCH (21:05)
[2018-08-18] MEDS: ENOXAPARIN 40 MG/0.4 ML SQ SCH (21:06)
[2018-08-19 06:03] LABS: CREATININE 0.98 mg/dL (0.7-1.3)
[2018-08-19] MEDS: SODIUM CHLORIDE 1 GM TABLET PO SCH ×4 (06:09→20:29)
[2018-08-19 08:29] VITALS: BP 137/75
[2018-08-19 13:54] VITALS: BP 167/95
[2018-08-19] MEDS: ENOXAPARIN 40 MG/0.4 ML SQ SCH (20:29)
[2018-08-19] MEDS: QUETIAPINE 25MG TABLET PO SCH (20:31)
[2018-08-20] MEDS: SODIUM CHLORIDE 1 GM TABLET PO SCH ×4 (05:52→20:55)
[2018-08-20 08:05] VITALS: BP 137/68
[2018-08-20] MEDS ORDERED: ACETAMINOPHEN 325 MG TABLET PO PRN (08:30)
[2018-08-20 14:03] LABS: QUANTIFERON TB Ag1-NIL 0 (0.000-0.000)
[2018-08-20] MEDS: QUETIAPINE 25MG TABLET PO SCH (20:55)
[2018-08-20] MEDS: ENOXAPARIN 40 MG/0.4 ML SQ SCH (20:55)
[2018-08-21] MEDS: SODIUM CHLORIDE 1 GM TABLET PO SCH ×4 (05:01→20:49)
[2018-08-21 08:52] VITALS: BP 128/68
[2018-08-21] MEDS: QUETIAPINE 25MG TABLET PO SCH (20:49)
[2018-08-21] MEDS: ENOXAPARIN 40 MG/0.4 ML SQ SCH (20:50)
[2018-08-22] MEDS: SODIUM CHLORIDE 1 GM TABLET PO SCH ×4 (06:07→20:07)
[2018-08-22 08:00] VITALS: BP 129/62
[2018-08-22] MEDS: ENOXAPARIN 40 MG/0.4 ML SQ SCH (20:06)
[2018-08-22] MEDS: QUETIAPINE 25MG TABLET PO SCH (20:07)
[2018-08-23] MEDS: SODIUM CHLORIDE 1 GM TABLET PO SCH ×4 (06:25→20:20)
[2018-08-23 07:52] VITALS: BP 153/64
[2018-08-23 18:02] LABS: TUBERCULIN 48 HOUR READ 20 mm (< 5)
[2018-08-23] MEDS: ENOXAPARIN 40 MG/0.4 ML SQ SCH (20:21)
[2018-08-23] MEDS: QUETIAPINE 25MG TABLET PO SCH (20:21)
[2018-08-24] MEDS: SODIUM CHLORIDE 1 GM TABLET PO SCH ×4 (06:16→19:46)
[2018-08-24 08:05] VITALS: BP 149/59
[2018-08-24] MEDS: QUETIAPINE 25MG TABLET PO SCH (19:46)
[2018-08-24] MEDS: ENOXAPARIN 40 MG/0.4 ML SQ SCH (21:00)
[2018-08-24] MEDS ORDERED: OMNIPAQUE 350 MG/ML, 100ML BOTTLE ONE (23:56)
[2018-08-25] MEDS: SODIUM CHLORIDE 1 GM TABLET PO SCH ×4 (06:05→20:43)
[2018-08-25 06:14] LABS: BASOPHILS # (AUTO) 0.03 x10^3/uL (0-0.1); BASOPHILS % (AUTO) 1 % (0-1); EOSINOPHILS # (AUTO) 0.31 x10^3/uL (0-0.4); EOSINOPHILS % (AUTO) 6 % (1-7); LYMPHOCYTES # (AUTO) 1.32 x10^3/uL (1-3.4); LYMPHOCYTES % (AUTO) 28 % (22-44); MD NO; MEAN CORPUSCULAR HEMOGLOBIN 25.4 pg (27.5-34.5); MEAN CORPUSCULAR HGB CONC 32.9 g/dL (33.2-36.2); MEAN CORPUSCULAR VOLUME 77.1 fL (81-97); MEAN PLATELET VOLUME 9.1 fL (7.4-10.4); MONOCYTES # (AUTO) 0.66 x10^3/uL (0.2-0.8); MONOCYTES % (AUTO) 14 % (2-9); NEUTROPHILS # (AUTO) 2.45 x10^3/uL (1.8-6.8); NEUTROPHILS % (AUTO) 52 % (42-75); PLATELET COUNT 257 x10^3/uL (130-400); RED BLOOD COUNT 5.74 x10^6/uL (4.38-5.82); RED CELL DISTRIBUTION WIDTH 16.2 % (9.4-14.8)
[2018-08-25 06:21] LABS: ALBUMIN 3.5 g/dL (3.4-5.0); ANION GAP 8 mmol/L (5-15); CALCIUM 8.6 mg/dL (8.5-10.1); CHLORIDE 104 mmol/L (98-107)
[2018-08-25 06:27] LABS: ALANINE AMINOTRANSFERASE 14 U/L (12-78); ALKALINE PHOSPHATASE 76 U/L (45-117); BILIRUBIN,TOTAL 0.4 mg/dL (0.2-1.0); CREATININE 1.17 mg/dL (0.7-1.3); TOTAL PROTEIN 7.6 g/dL (6.4-8.2)
[2018-08-25 07:24] VITALS: BP 164/93
[2018-08-25] MEDS: AMLODIPINE 5 MG TABLET PO SCH ×2 (09:02→20:43)
[2018-08-25] MEDS: RIFAMPIN 300 MG CAPSULE PO SCH (09:02)
[2018-08-25] MEDS: QUETIAPINE 25MG TABLET PO SCH (20:43)
[2018-08-25] MEDS: ENOXAPARIN 40 MG/0.4 ML SQ SCH (20:43)
[2018-08-26] MEDS: SODIUM CHLORIDE 1 GM TABLET PO SCH ×4 (06:00→20:32)
[2018-08-26 08:15] VITALS: BP 137/81
[2018-08-26] MEDS: LISINOPRIL 5 MG TABLET PO SCH (09:00)
[2018-08-26] MEDS: RIFAMPIN 300 MG CAPSULE PO SCH (09:00)
[2018-08-26] MEDS: AMLODIPINE 5 MG TABLET PO SCH ×2 (09:00→20:32)
[2018-08-26 14:20] VITALS: BP 143/87
[2018-08-26] MEDS: ENOXAPARIN 40 MG/0.4 ML SQ SCH (20:32)
[2018-08-26] MEDS: QUETIAPINE 25MG TABLET PO SCH (20:33)
[2018-08-26 21:42] VITALS: BP 116/51
[2018-08-27] MEDS: SODIUM CHLORIDE 1 GM TABLET PO SCH ×4 (05:20→20:30)
[2018-08-27] MEDS: RIFAMPIN 300 MG CAPSULE PO SCH (09:00)
[2018-08-27] MEDS: AMLODIPINE 5 MG TABLET PO SCH ×2 (09:00→20:30)
[2018-08-27] MEDS: LISINOPRIL 5 MG TABLET PO SCH (09:00)
[2018-08-27 10:20] VITALS: BP 110/59
[2018-08-27] MEDS: ENOXAPARIN 40 MG/0.4 ML SQ SCH (20:30)
[2018-08-27] MEDS: QUETIAPINE 25MG TABLET PO SCH (20:30)
[2018-08-28] MEDS: SODIUM CHLORIDE 1 GM TABLET PO SCH ×4 (05:55→21:08)
[2018-08-28] MEDS: RIFAMPIN 300 MG CAPSULE PO SCH (09:00)
[2018-08-28] MEDS: LISINOPRIL 5 MG TABLET PO SCH (09:00)
[2018-08-28] MEDS: AMLODIPINE 5 MG TABLET PO SCH ×2 (09:00→21:08)
[2018-08-28 10:04] VITALS: BP 110/57
[2018-08-28 20:04] VITALS: BP 148/81
[2018-08-28] MEDS: ENOXAPARIN 40 MG/0.4 ML SQ SCH (21:00)
[2018-08-28] MEDS: QUETIAPINE 25MG TABLET PO SCH (21:08)
[2018-08-29] MEDS: SODIUM CHLORIDE 1 GM TABLET PO SCH ×4 (06:13→19:33)
[2018-08-29 08:26] VITALS: BP 148/73
[2018-08-29] MEDS: AMLODIPINE 5 MG TABLET PO SCH ×2 (09:58→19:33)
[2018-08-29] MEDS: LISINOPRIL 5 MG TABLET PO SCH (09:58)
[2018-08-29] MEDS: RIFAMPIN 300 MG CAPSULE PO SCH (09:58)
[2018-08-29] MEDS: QUETIAPINE 25MG TABLET PO SCH (19:33)
[2018-08-29 19:39] VITALS: BP 156/91
[2018-08-30] MEDS: SODIUM CHLORIDE 1 GM TABLET PO SCH ×4 (06:02→19:54)
[2018-08-30 08:36] VITALS: BP 148/80
[2018-08-30] MEDS: RIFAMPIN 300 MG CAPSULE PO SCH (10:03)
[2018-08-30] MEDS: LISINOPRIL 5 MG TABLET PO SCH (10:04)
[2018-08-30] MEDS: AMLODIPINE 5 MG TABLET PO SCH ×2 (10:04→19:54)
[2018-08-30 19:51] VITALS: BP 173/84
[2018-08-30] MEDS: QUETIAPINE 25MG TABLET PO SCH (19:54)
[2018-08-31] MEDS: SODIUM CHLORIDE 1 GM TABLET PO SCH ×4 (05:27→21:57)
[2018-08-31] MEDS ORDERED: LISINOPRIL 20 MG TABLET PO SCH (09:00)
[2018-08-31 10:06] VITALS: BP 166/77
[2018-08-31] MEDS: RIFAMPIN 300 MG CAPSULE PO SCH (10:09)
[2018-08-31] MEDS: AMLODIPINE 5 MG TABLET PO SCH ×2 (10:09→21:56)
[2018-08-31 20:40] VITALS: BP 155/88
[2018-08-31] MEDS: QUETIAPINE 25MG TABLET PO SCH (21:56)
[2018-09-01] MEDS: SODIUM CHLORIDE 1 GM TABLET PO SCH ×4 (06:01→23:24)
[2018-09-01] MEDS ORDERED: LISINOPRIL 20 MG TABLET PO SCH (09:00)
[2018-09-01] MEDS: AMLODIPINE 5 MG TABLET PO SCH (09:00)
[2018-09-01 09:59] VITALS: BP 105/59
[2018-09-01] MEDS: RIFAMPIN 300 MG CAPSULE PO SCH (10:13)
[2018-09-01 19:58] VITALS: BP 150/88
[2018-09-01] MEDS: QUETIAPINE 25MG TABLET PO SCH (23:24)
[2018-09-02] MEDS: SODIUM CHLORIDE 1 GM TABLET PO SCH ×4 (05:48→20:13)
[2018-09-02 08:46] VITALS: BP 136/76
[2018-09-02] MEDS ORDERED: LISINOPRIL 20 MG TABLET PO SCH (09:00)
[2018-09-02] MEDS: AMLODIPINE 5 MG TABLET PO SCH (10:28)
[2018-09-02] MEDS: LISINOPRIL 20 MG TABLET PO SCH (10:29)
[2018-09-02] MEDS: RIFAMPIN 300 MG CAPSULE PO SCH (10:29)
[2018-09-02 18:56] VITALS: BP 149/68
[2018-09-02] MEDS: QUETIAPINE 25MG TABLET PO SCH (20:13)
[2018-09-03 01:16] VITALS: BP 144/76
[2018-09-03] MEDS: SODIUM CHLORIDE 1 GM TABLET PO SCH ×4 (05:35→19:39)
[2018-09-03 07:19] VITALS: BP 138/72
[2018-09-03] MEDS: AMLODIPINE 5 MG TABLET PO SCH (09:30)
[2018-09-03] MEDS: RIFAMPIN 300 MG CAPSULE PO SCH (09:30)
[2018-09-03] MEDS: LISINOPRIL 20 MG TABLET PO SCH (09:30)
[2018-09-03 19:21] VITALS: BP 152/70
[2018-09-03] MEDS: QUETIAPINE 25MG TABLET PO SCH (19:39)
[2018-09-04 01:13] VITALS: BP 136/70
[2018-09-04] MEDS: SODIUM CHLORIDE 1 GM TABLET PO SCH ×4 (04:51→21:15)
[2018-09-04 07:44] VITALS: BP 128/73
[2018-09-04] MEDS: AMLODIPINE 5 MG TABLET PO SCH (08:40)
[2018-09-04] MEDS: RIFAMPIN 300 MG CAPSULE PO SCH (08:40)
[2018-09-04] MEDS: LISINOPRIL 20 MG TABLET PO SCH (08:41)
[2018-09-04] MEDS: QUETIAPINE 25MG TABLET PO SCH (21:14)
[2018-09-04] MEDS: DOCUSATE 100 MG CAPSULE PO PRN (21:14)
[2018-09-05 05:20] LABS: BASOPHILS # (AUTO) 0.03 x10^3/uL (0-0.1); BASOPHILS % (AUTO) 1 % (0-1); EOSINOPHILS # (AUTO) 0.35 x10^3/uL (0-0.4); EOSINOPHILS % (AUTO) 8 % (1-7); LYMPHOCYTES % (AUTO) 38 % (22-44); MD NO; MEAN CORPUSCULAR HEMOGLOBIN 25.3 pg (27.5-34.5); MEAN CORPUSCULAR HGB CONC 33.1 g/dL (33.2-36.2); MEAN CORPUSCULAR VOLUME 76.6 fL (81-97); MEAN PLATELET VOLUME 8.2 fL (7.4-10.4); MONOCYTES # (AUTO) 0.58 x10^3/uL (0.2-0.8); MONOCYTES % (AUTO) 14 % (2-9); NEUTROPHILS # (AUTO) 1.66 x10^3/uL (1.8-6.8); NEUTROPHILS % (AUTO) 39 % (42-75); PLATELET COUNT 327 x10^3/uL (130-400); RED BLOOD COUNT 5.49 x10^6/uL (4.38-5.82); RED CELL DISTRIBUTION WIDTH 15.7 % (9.4-14.8)
[2018-09-05 05:34] LABS: CHLORIDE 99 mmol/L (98-107)
[2018-09-05 05:41] LABS: ALANINE AMINOTRANSFERASE 13 U/L (12-78); ALBUMIN 3.6 g/dL (3.4-5.0); ALKALINE PHOSPHATASE 83 U/L (45-117); ANION GAP 8 mmol/L (5-15); BILIRUBIN,TOTAL 0.3 mg/dL (0.2-1.0); CALCIUM 8.6 mg/dL (8.5-10.1); CREATININE 1.15 mg/dL (0.7-1.3); TOTAL PROTEIN 7.6 g/dL (6.4-8.2)
[2018-09-05] MEDS: SODIUM CHLORIDE 1 GM TABLET PO SCH ×4 (06:11→20:43)
[2018-09-05] MEDS: RIFAMPIN 300 MG CAPSULE PO SCH (08:58)
[2018-09-05] MEDS: AMLODIPINE 5 MG TABLET PO SCH (08:58)
[2018-09-05] MEDS: LISINOPRIL 20 MG TABLET PO SCH (08:58)
[2018-09-05 09:00] VITALS: BP 149/64
[2018-09-05 17:04] LABS: ANION GAP 7 mmol/L (5-15); CALCIUM 8.5 mg/dL (8.5-10.1); CHLORIDE 95 mmol/L (98-107); CREATININE 0.98 mg/dL (0.7-1.3)
[2018-09-05 17:41] LABS: OSMOLALITY,URINE 232 mOsm/kg (500-850); SODIUM,URINE RANDOM 62 mmol/L
[2018-09-05] MEDS: NS + 20MEQ KCL 1,000 ML IV SCH ×2 (18:01→19:17)
[2018-09-05] MEDS ORDERED: SODIUM CHLORIDE 0.9% 1,000ML IVBOLUS ONE (18:30)
[2018-09-05] MEDS: QUETIAPINE 25MG TABLET PO SCH (20:43)
[2018-09-06] MEDS: SODIUM CHLORIDE 1 GM TABLET PO SCH ×4 (06:42→20:46)
[2018-09-06 07:29] VITALS: BP 118/73
[2018-09-06] MEDS: LISINOPRIL 20 MG TABLET PO SCH (08:17)
[2018-09-06] MEDS: AMLODIPINE 5 MG TABLET PO SCH (08:17)
[2018-09-06] MEDS: RIFAMPIN 300 MG CAPSULE PO SCH (08:17)
[2018-09-06 09:04] LABS: ANION GAP 7 mmol/L (5-15); CALCIUM 8.9 mg/dL (8.5-10.1); CHLORIDE 97 mmol/L (98-107); CREATININE 1.08 mg/dL (0.7-1.3)
[2018-09-06 15:32] LABS: ANION GAP 8 mmol/L (5-15); CALCIUM 8.9 mg/dL (8.5-10.1); CHLORIDE 97 mmol/L (98-107); CREATININE 1.09 mg/dL (0.7-1.3)
[2018-09-06] MEDS ORDERED: FUROSEMIDE 20 MG/2 ML IV ONE (17:00)
[2018-09-06] MEDS ORDERED: FUROSEMIDE 20 MG TABLET PO ONE (18:00)
[2018-09-06] MEDS: QUETIAPINE 25MG TABLET PO SCH (20:46)
[2018-09-07] MEDS: SODIUM CHLORIDE 1 GM TABLET PO SCH ×4 (06:58→20:11)
[2018-09-07 07:28] VITALS: BP 163/87
[2018-09-07 09:31] LABS: ANION GAP 8 mmol/L (5-15); CALCIUM 8.9 mg/dL (8.5-10.1); CHLORIDE 99 mmol/L (98-107); CREATININE 1.14 mg/dL (0.7-1.3)
[2018-09-07] MEDS: RIFAMPIN 300 MG CAPSULE PO SCH (09:54)
[2018-09-07] MEDS: AMLODIPINE 5 MG TABLET PO SCH (09:54)
[2018-09-07] MEDS: LISINOPRIL 20 MG TABLET PO SCH (09:54)
[2018-09-07] MEDS: QUETIAPINE 25MG TABLET PO SCH (20:11)
[2018-09-08 05:28] LABS: ANION GAP 6 mmol/L (5-15); CALCIUM 8.8 mg/dL (8.5-10.1); CHLORIDE 102 mmol/L (98-107)
[2018-09-08 05:31] LABS: CREATININE 1.22 mg/dL (0.7-1.3)
[2018-09-08] MEDS: SODIUM CHLORIDE 1 GM TABLET PO SCH ×4 (06:13→19:37)
[2018-09-08] MEDS ORDERED: FUROSEMIDE 20 MG TABLET PO SCH (07:30)
[2018-09-08] MEDS ORDERED: SODIUM POLYSTYRENE SULFONATE ORAL SUSP PO ONE (07:30)
[2018-09-08] MEDS: RIFAMPIN 300 MG CAPSULE PO SCH (08:28)
[2018-09-08] MEDS: AMLODIPINE 5 MG TABLET PO SCH (08:28)
[2018-09-08 08:45] VITALS: BP 134/81
[2018-09-08] MEDS: QUETIAPINE 25MG TABLET PO SCH (19:37)
[2018-09-09 05:30] LABS: ANION GAP 6 mmol/L (5-15); CALCIUM 8.7 mg/dL (8.5-10.1); CHLORIDE 104 mmol/L (98-107)
[2018-09-09 05:31] LABS: CREATININE 1.21 mg/dL (0.7-1.3)
[2018-09-09] MEDS: SODIUM CHLORIDE 1 GM TABLET PO SCH ×4 (05:53→20:21)
[2018-09-09 07:23] VITALS: BP 105/57
[2018-09-09] MEDS: AMLODIPINE 5 MG TABLET PO SCH (08:18)
[2018-09-09] MEDS: RIFAMPIN 300 MG CAPSULE PO SCH (08:18)
[2018-09-09] MEDS: QUETIAPINE 25MG TABLET PO SCH (20:21)
[2018-09-10] MEDS: SODIUM CHLORIDE 1 GM TABLET PO SCH ×4 (05:57→19:15)
[2018-09-10 07:11] VITALS: BP 128/67
[2018-09-10] MEDS: AMLODIPINE 5 MG TABLET PO SCH (08:19)
[2018-09-10] MEDS: RIFAMPIN 300 MG CAPSULE PO SCH (08:19)
[2018-09-10 19:04] VITALS: BP 152/76
[2018-09-10] MEDS: QUETIAPINE 25MG TABLET PO SCH (19:16)
[2018-09-11 05:15] LABS: ANION GAP 4 mmol/L (5-15); CALCIUM 8.3 mg/dL (8.5-10.1); CHLORIDE 105 mmol/L (98-107); CREATININE 1.04 mg/dL (0.7-1.3)
[2018-09-11] MEDS: SODIUM CHLORIDE 1 GM TABLET PO SCH ×4 (05:47→19:24)
[2018-09-11] MEDS ORDERED: SODIUM POLYSTYRENE SULFONATE ORAL SUSP PO ONE (07:30)
[2018-09-11] MEDS: RIFAMPIN 300 MG CAPSULE PO SCH (07:55)
[2018-09-11] MEDS: AMLODIPINE 5 MG TABLET PO SCH (07:55)
[2018-09-11 09:48] VITALS: BP 124/65
[2018-09-11 18:37] VITALS: BP 132/61
[2018-09-11] MEDS: QUETIAPINE 25MG TABLET PO SCH (19:25)
[2018-09-12] MEDS: SODIUM CHLORIDE 1 GM TABLET PO SCH ×4 (04:43→20:20)
[2018-09-12 05:49] LABS: ANION GAP 5 mmol/L (5-15); CALCIUM 8.5 mg/dL (8.5-10.1); CHLORIDE 108 mmol/L (98-107)
[2018-09-12 05:50] LABS: CREATININE 1.02 mg/dL (0.7-1.3)
[2018-09-12 08:40] VITALS: BP 126/78
[2018-09-12] MEDS: RIFAMPIN 300 MG CAPSULE PO SCH (08:41)
[2018-09-12] MEDS: AMLODIPINE 5 MG TABLET PO SCH (08:42)
[2018-09-12 11:13] VITALS: BP 138/74
[2018-09-12] MEDS: QUETIAPINE 25MG TABLET PO SCH (20:20)
[2018-09-13] MEDS: SODIUM CHLORIDE 1 GM TABLET PO SCH ×4 (06:02→19:55)
[2018-09-13 08:03] VITALS: BP 152/84
[2018-09-13] MEDS: RIFAMPIN 300 MG CAPSULE PO SCH (08:57)
[2018-09-13] MEDS: AMLODIPINE 5 MG TABLET PO SCH (08:57)
[2018-09-13] MEDS: QUETIAPINE 25MG TABLET PO SCH (19:55)
[2018-09-13] MEDS: DOCUSATE 100 MG CAPSULE PO PRN (19:56)
[2018-09-14] MEDS: SODIUM CHLORIDE 1 GM TABLET PO SCH ×4 (06:09→19:58)
[2018-09-14 06:51] VITALS: BP 139/77
[2018-09-14] MEDS: RIFAMPIN 300 MG CAPSULE PO SCH (10:09)
[2018-09-14] MEDS: AMLODIPINE 5 MG TABLET PO SCH (10:09)
[2018-09-14] MEDS: QUETIAPINE 25MG TABLET PO SCH (19:58)
[2018-09-15] MEDS: SODIUM CHLORIDE 1 GM TABLET PO SCH ×4 (06:17→20:58)
[2018-09-15 09:55] VITALS: BP 121/67
[2018-09-15] MEDS: RIFAMPIN 300 MG CAPSULE PO SCH (09:58)
[2018-09-15] MEDS: AMLODIPINE 5 MG TABLET PO SCH (09:59)
[2018-09-15] MEDS: QUETIAPINE 25MG TABLET PO SCH (20:58)
[2018-09-16 05:48] LABS: CALCIUM 8.4 mg/dL (8.5-10.1); CHLORIDE 105 mmol/L (98-107)
[2018-09-16 05:51] LABS: ANION GAP 5 mmol/L (5-15); CREATININE 0.97 mg/dL (0.7-1.3)
[2018-09-16] MEDS: SODIUM CHLORIDE 1 GM TABLET PO SCH ×4 (06:03→19:58)
[2018-09-16 09:28] VITALS: BP 148/79
[2018-09-16] MEDS: AMLODIPINE 5 MG TABLET PO SCH (09:29)
[2018-09-16] MEDS: RIFAMPIN 300 MG CAPSULE PO SCH (09:29)
[2018-09-16] MEDS: QUETIAPINE 25MG TABLET PO SCH (19:59)
[2018-09-17] MEDS: SODIUM CHLORIDE 1 GM TABLET PO SCH ×4 (05:49→19:34)
[2018-09-17 08:04] VITALS: BP 130/64
[2018-09-17] MEDS: AMLODIPINE 5 MG TABLET PO SCH (08:08)
[2018-09-17] MEDS: RIFAMPIN 300 MG CAPSULE PO SCH (08:08)
[2018-09-17] MEDS: QUETIAPINE 25MG TABLET PO SCH (19:34)
[2018-09-17 19:45] VITALS: BP 145/74
[2018-09-18] MEDS: SODIUM CHLORIDE 1 GM TABLET PO SCH ×4 (05:52→20:38)
[2018-09-18 08:42] VITALS: BP 119/63
[2018-09-18] MEDS: AMLODIPINE 5 MG TABLET PO SCH (09:05)
[2018-09-18] MEDS: RIFAMPIN 300 MG CAPSULE PO SCH (09:05)
[2018-09-18 19:32] VITALS: BP 150/65
[2018-09-18] MEDS: QUETIAPINE 25MG TABLET PO SCH (20:39)
[2018-09-19] MEDS: SODIUM CHLORIDE 1 GM TABLET PO SCH ×4 (06:06→21:16)
[2018-09-19 08:06] VITALS: BP 145/68
[2018-09-19] MEDS: AMLODIPINE 5 MG TABLET PO SCH (09:00)
[2018-09-19] MEDS: RIFAMPIN 300 MG CAPSULE PO SCH (09:00)
[2018-09-19 19:43] VITALS: BP 154/82
[2018-09-19] MEDS: QUETIAPINE 25MG TABLET PO SCH (21:16)
[2018-09-20 05:41] LABS: ANION GAP 5 mmol/L (5-15); CALCIUM 8.5 mg/dL (8.5-10.1); CHLORIDE 109 mmol/L (98-107); CREATININE 0.93 mg/dL (0.7-1.3)
[2018-09-20] MEDS: SODIUM CHLORIDE 1 GM TABLET PO SCH ×4 (05:51→20:02)
[2018-09-20 08:18] VITALS: BP 121/73
[2018-09-20] MEDS: AMLODIPINE 5 MG TABLET PO SCH (08:24)
[2018-09-20] MEDS: RIFAMPIN 300 MG CAPSULE PO SCH (08:24)
[2018-09-20 18:59] VITALS: BP 149/63
[2018-09-20] MEDS: QUETIAPINE 25MG TABLET PO SCH (20:02)
[2018-09-21] MEDS: SODIUM CHLORIDE 1 GM TABLET PO SCH ×4 (06:02→20:08)
[2018-09-21 07:51] VITALS: BP 124/74
[2018-09-21] MEDS: RIFAMPIN 300 MG CAPSULE PO SCH (08:41)
[2018-09-21] MEDS: AMLODIPINE 5 MG TABLET PO SCH (08:41)
[2018-09-21 12:50] VITALS: BP 134/75
[2018-09-21] MEDS: QUETIAPINE 25MG TABLET PO SCH (20:08)
[2018-09-21 20:11] VITALS: BP 150/89
[2018-09-22] MEDS: SODIUM CHLORIDE 1 GM TABLET PO SCH ×4 (06:35→21:39)
[2018-09-22 08:03] VITALS: BP 143/74
[2018-09-22] MEDS: RIFAMPIN 300 MG CAPSULE PO SCH (10:15)
[2018-09-22] MEDS: AMLODIPINE 5 MG TABLET PO SCH (10:15)
[2018-09-22] MEDS: QUETIAPINE 25MG TABLET PO SCH (21:39)
[2018-09-23] MEDS: SODIUM CHLORIDE 1 GM TABLET PO SCH ×4 (05:59→20:43)
[2018-09-23 08:12] VITALS: BP 154/87
[2018-09-23] MEDS: AMLODIPINE 5 MG TABLET PO SCH (09:43)
[2018-09-23] MEDS: RIFAMPIN 300 MG CAPSULE PO SCH (09:43)
[2018-09-23] MEDS: QUETIAPINE 25MG TABLET PO SCH (20:43)
[2018-09-24] MEDS: SODIUM CHLORIDE 1 GM TABLET PO SCH ×4 (05:08→22:10)
[2018-09-24] MEDS: AMLODIPINE 5 MG TABLET PO SCH (07:45)
[2018-09-24] MEDS: RIFAMPIN 300 MG CAPSULE PO SCH (07:45)
[2018-09-24 08:19] VITALS: BP 148/64
[2018-09-24 18:40] VITALS: BP 158/96
[2018-09-24] MEDS: QUETIAPINE 25MG TABLET PO SCH (22:10)
[2018-09-25] MEDS: SODIUM CHLORIDE 1 GM TABLET PO SCH ×4 (06:43→21:40)
[2018-09-25] MEDS: RIFAMPIN 300 MG CAPSULE PO SCH (10:07)
[2018-09-25] MEDS: AMLODIPINE 5 MG TABLET PO SCH (10:07)
[2018-09-25 10:10] VITALS: BP 140/80
[2018-09-25 19:03] VITALS: BP 149/88
[2018-09-25] MEDS: QUETIAPINE 25MG TABLET PO SCH (21:41)
[2018-09-26] MEDS: SODIUM CHLORIDE 1 GM TABLET PO SCH ×4 (04:46→21:08)
[2018-09-26 05:27] LABS: ANION GAP 5 mmol/L (5-15); CALCIUM 8.3 mg/dL (8.5-10.1); CHLORIDE 109 mmol/L (98-107); CREATININE 0.93 mg/dL (0.7-1.3)
[2018-09-26 10:09] VITALS: BP 148/89
[2018-09-26] MEDS: AMLODIPINE 5 MG TABLET PO SCH (10:11)
[2018-09-26] MEDS: RIFAMPIN 300 MG CAPSULE PO SCH (10:11)
[2018-09-26] MEDS: QUETIAPINE 25MG TABLET PO SCH (21:08)
[2018-09-27] MEDS: SODIUM CHLORIDE 1 GM TABLET PO SCH ×4 (05:57→20:19)
[2018-09-27] MEDS: RIFAMPIN 300 MG CAPSULE PO SCH (09:41)
[2018-09-27] MEDS: AMLODIPINE 5 MG TABLET PO SCH (09:42)
[2018-09-27 10:51] VITALS: BP 129/69
[2018-09-27] MEDS: DOCUSATE 100 MG CAPSULE PO PRN (20:19)
[2018-09-27] MEDS: QUETIAPINE 25MG TABLET PO SCH (20:19)
[2018-09-28] MEDS: SODIUM CHLORIDE 1 GM TABLET PO SCH ×4 (05:52→20:12)
[2018-09-28 06:47] VITALS: BP 123/62
[2018-09-28] MEDS: AMLODIPINE 5 MG TABLET PO SCH (09:29)
[2018-09-28] MEDS: RIFAMPIN 300 MG CAPSULE PO SCH (09:29)
[2018-09-28] MEDS: QUETIAPINE 25MG TABLET PO SCH (20:12)
[2018-09-29] MEDS: SODIUM CHLORIDE 1 GM TABLET PO SCH ×4 (06:02→19:59)
[2018-09-29 07:40] VITALS: BP 131/79
[2018-09-29] MEDS: RIFAMPIN 300 MG CAPSULE PO SCH (10:06)
[2018-09-29] MEDS: AMLODIPINE 5 MG TABLET PO SCH (10:06)
[2018-09-29 14:07] VITALS: BP 157/96
[2018-09-29] MEDS: DOCUSATE 100 MG CAPSULE PO PRN (19:59)
[2018-09-29] MEDS: QUETIAPINE 25MG TABLET PO SCH (20:00)
[2018-09-30] MEDS: SODIUM CHLORIDE 1 GM TABLET PO SCH ×4 (05:45→20:20)
[2018-09-30] MEDS: RIFAMPIN 300 MG CAPSULE PO SCH (08:34)
[2018-09-30] MEDS: AMLODIPINE 5 MG TABLET PO SCH (08:34)
[2018-09-30 09:11] VITALS: BP 150/60
[2018-09-30] MEDS: QUETIAPINE 25MG TABLET PO SCH (20:20)
[2018-10-01] MEDS: SODIUM CHLORIDE 1 GM TABLET PO SCH ×4 (05:09→21:13)
[2018-10-01 06:52] VITALS: BP 138/85
[2018-10-01] MEDS: RIFAMPIN 300 MG CAPSULE PO SCH (09:31)
[2018-10-01] MEDS: AMLODIPINE 5 MG TABLET PO SCH (09:31)
[2018-10-01] MEDS: QUETIAPINE 25MG TABLET PO SCH (21:13)
[2018-10-02] MEDS: SODIUM CHLORIDE 1 GM TABLET PO SCH ×4 (06:08→19:58)
[2018-10-02 09:31] VITALS: BP 130/55
[2018-10-02] MEDS: AMLODIPINE 5 MG TABLET PO SCH (09:34)
[2018-10-02] MEDS: RIFAMPIN 300 MG CAPSULE PO SCH (09:34)
[2018-10-02] MEDS: QUETIAPINE 25MG TABLET PO SCH (19:58)
[2018-10-03] MEDS: SODIUM CHLORIDE 1 GM TABLET PO SCH ×4 (05:26→21:06)
[2018-10-03 07:44] VITALS: BP 139/83
[2018-10-03] MEDS: AMLODIPINE 5 MG TABLET PO SCH (08:33)
[2018-10-03] MEDS: RIFAMPIN 300 MG CAPSULE PO SCH (08:33)
[2018-10-03] MEDS: QUETIAPINE 25MG TABLET PO SCH (21:06)
[2018-10-04] MEDS: SODIUM CHLORIDE 1 GM TABLET PO SCH ×4 (04:05→19:57)
[2018-10-04] MEDS: AMLODIPINE 5 MG TABLET PO SCH (08:21)
[2018-10-04] MEDS: RIFAMPIN 300 MG CAPSULE PO SCH (08:21)
[2018-10-04 08:30] VITALS: BP 173/79
[2018-10-04 10:36] LABS: MEAN CORPUSCULAR HEMOGLOBIN 25.2 pg (27.5-34.5); MEAN CORPUSCULAR HGB CONC 32.9 g/dL (33.2-36.2); MEAN CORPUSCULAR VOLUME 76.7 fL (81-97); MEAN PLATELET VOLUME 8.9 fL (7.4-10.4); PLATELET COUNT 294 x10^3/uL (130-400); RED BLOOD COUNT 5.77 x10^6/uL (4.38-5.82); RED CELL DISTRIBUTION WIDTH 16.4 % (9.4-14.8)
[2018-10-04 10:45] LABS: ALANINE AMINOTRANSFERASE 17 U/L (12-78); ALBUMIN 3.8 g/dL (3.4-5.0); ANION GAP 4 mmol/L (5-15); CALCIUM 8.9 mg/dL (8.5-10.1); CHLORIDE 106 mmol/L (98-107); CREATININE 0.98 mg/dL (0.7-1.3)
[2018-10-04 10:47] LABS: ALKALINE PHOSPHATASE 105 U/L (45-117); BILIRUBIN,TOTAL 1.1 mg/dL (0.2-1.0); TOTAL PROTEIN 8.4 g/dL (6.4-8.2)
[2018-10-04 11:06] LABS: BASOPHILS # (AUTO) 0.04 x10^3/uL (0-0.1); BASOPHILS % (AUTO) 1 % (0-1); EOSINOPHILS # (AUTO) 0.25 x10^3/uL (0-0.4); EOSINOPHILS % (AUTO) 5 % (1-7); LYMPHOCYTES # (AUTO) 1.22 x10^3/uL (1-3.4); LYMPHOCYTES % (AUTO) 24 % (22-44); MD SCAN; MONOCYTES % (AUTO) 8 % (2-9); NEUTROPHILS # (AUTO) 3.22 x10^3/uL (1.8-6.8); NEUTROPHILS % (AUTO) 63 % (42-75)
[2018-10-04 15:02] VITALS: BP 141/92
[2018-10-04] MEDS: QUETIAPINE 25MG TABLET PO SCH (19:57)
[2018-10-05] MEDS: SODIUM CHLORIDE 1 GM TABLET PO SCH ×4 (05:31→19:35)
[2018-10-05 08:13] VITALS: BP 150/77
[2018-10-05] MEDS: AMLODIPINE 5 MG TABLET PO SCH (08:47)
[2018-10-05] MEDS: RIFAMPIN 300 MG CAPSULE PO SCH (08:47)
[2018-10-05 12:00] VITALS: BP 144/78
[2018-10-05] MEDS: QUETIAPINE 25MG TABLET PO SCH (19:35)
[2018-10-06] MEDS: SODIUM CHLORIDE 1 GM TABLET PO SCH ×4 (05:47→20:00)
[2018-10-06 08:00] VITALS: BP 138/79
[2018-10-06] MEDS: AMLODIPINE 5 MG TABLET PO SCH (08:06)
[2018-10-06] MEDS: RIFAMPIN 300 MG CAPSULE PO SCH (08:07)
[2018-10-06 08:13] VITALS: BP 157/82
[2018-10-06] MEDS: QUETIAPINE 25MG TABLET PO SCH (20:00)
[2018-10-06] MEDS: DOCUSATE 100 MG CAPSULE PO PRN (20:00)
[2018-10-07] MEDS: SODIUM CHLORIDE 1 GM TABLET PO SCH ×4 (06:03→19:49)
[2018-10-07 08:26] VITALS: BP 145/90
[2018-10-07] MEDS: AMLODIPINE 5 MG TABLET PO SCH (08:28)
[2018-10-07] MEDS: RIFAMPIN 300 MG CAPSULE PO SCH (08:28)
[2018-10-07] MEDS: QUETIAPINE 25MG TABLET PO SCH (19:49)
[2018-10-07 20:21] VITALS: BP 150/84
[2018-10-08] MEDS: SODIUM CHLORIDE 1 GM TABLET PO SCH ×4 (06:07→21:06)
[2018-10-08 06:44] VITALS: BP 132/64
[2018-10-08] MEDS: AMLODIPINE 5 MG TABLET PO SCH (08:32)
[2018-10-08] MEDS: RIFAMPIN 300 MG CAPSULE PO SCH (08:32)
[2018-10-08] MEDS: QUETIAPINE 25MG TABLET PO SCH (21:06)
[2018-10-09] MEDS: SODIUM CHLORIDE 1 GM TABLET PO SCH ×4 (06:20→20:07)
[2018-10-09 07:15] VITALS: BP 142/69
[2018-10-09] MEDS: AMLODIPINE 5 MG TABLET PO SCH (10:01)
[2018-10-09] MEDS: RIFAMPIN 300 MG CAPSULE PO SCH (10:01)
[2018-10-09 19:33] VITALS: BP 172/80
[2018-10-09] MEDS: QUETIAPINE 25MG TABLET PO SCH (20:07)
[2018-10-10] MEDS: SODIUM CHLORIDE 1 GM TABLET PO SCH ×4 (06:18→21:30)
[2018-10-10 06:55] VITALS: BP 112/63
[2018-10-10] MEDS: AMLODIPINE 5 MG TABLET PO SCH (09:42)
[2018-10-10] MEDS: RIFAMPIN 300 MG CAPSULE PO SCH (09:42)
[2018-10-10] MEDS: QUETIAPINE 25MG TABLET PO SCH (21:30)
[2018-10-11] MEDS: SODIUM CHLORIDE 1 GM TABLET PO SCH ×4 (06:00→21:45)
[2018-10-11 07:50] VITALS: BP 125/66
[2018-10-11] MEDS: RIFAMPIN 300 MG CAPSULE PO SCH (10:57)
[2018-10-11] MEDS: AMLODIPINE 5 MG TABLET PO SCH (10:57)
[2018-10-11] MEDS: QUETIAPINE 25MG TABLET PO SCH (21:45)
[2018-10-12] MEDS: SODIUM CHLORIDE 1 GM TABLET PO SCH ×4 (06:45→21:23)
[2018-10-12 08:03] VITALS: BP 125/63
[2018-10-12] MEDS: RIFAMPIN 300 MG CAPSULE PO SCH (10:23)
[2018-10-12] MEDS: AMLODIPINE 5 MG TABLET PO SCH (10:23)
[2018-10-12] MEDS: QUETIAPINE 25MG TABLET PO SCH (21:24)
[2018-10-13] MEDS: SODIUM CHLORIDE 1 GM TABLET PO SCH ×4 (06:07→19:57)
[2018-10-13 08:00] VITALS: BP 128/72
[2018-10-13] MEDS: AMLODIPINE 5 MG TABLET PO SCH (10:14)
[2018-10-13] MEDS: RIFAMPIN 300 MG CAPSULE PO SCH (10:14)
[2018-10-13] MEDS: QUETIAPINE 25MG TABLET PO SCH (19:58)
[2018-10-14] MEDS: SODIUM CHLORIDE 1 GM TABLET PO SCH ×4 (06:27→19:37)
[2018-10-14 07:20] VITALS: BP 146/82
[2018-10-14] MEDS: AMLODIPINE 5 MG TABLET PO SCH (10:45)
[2018-10-14] MEDS: RIFAMPIN 300 MG CAPSULE PO SCH (10:45)
[2018-10-14] MEDS: QUETIAPINE 25MG TABLET PO SCH (19:37)
[2018-10-15] MEDS: SODIUM CHLORIDE 1 GM TABLET PO SCH ×4 (05:21→21:16)
[2018-10-15 08:01] VITALS: BP 138/71
[2018-10-15] MEDS: RIFAMPIN 300 MG CAPSULE PO SCH (09:58)
[2018-10-15] MEDS: AMLODIPINE 5 MG TABLET PO SCH (09:58)
[2018-10-15] MEDS: QUETIAPINE 25MG TABLET PO SCH (21:16)
[2018-10-15 21:17] VITALS: BP 151/76
[2018-10-16] MEDS: SODIUM CHLORIDE 1 GM TABLET PO SCH ×4 (06:13→20:59)
[2018-10-16 08:34] VITALS: BP 145/75
[2018-10-16] MEDS: AMLODIPINE 5 MG TABLET PO SCH (08:34)
[2018-10-16] MEDS: RIFAMPIN 300 MG CAPSULE PO SCH (08:35)
[2018-10-16] MEDS: QUETIAPINE 25MG TABLET PO SCH (21:00)
[2018-10-17] MEDS: SODIUM CHLORIDE 1 GM TABLET PO SCH ×4 (05:59→20:49)
[2018-10-17 07:54] VITALS: BP 148/67
[2018-10-17] MEDS: RIFAMPIN 300 MG CAPSULE PO SCH (07:56)
[2018-10-17] MEDS: LISINOPRIL 5 MG TABLET PO SCH (07:56)
[2018-10-17] MEDS: AMLODIPINE 5 MG TABLET PO SCH (07:56)
[2018-10-17 20:11] VITALS: BP 132/67
[2018-10-17] MEDS: QUETIAPINE 25MG TABLET PO SCH (20:49)
[2018-10-18] MEDS: SODIUM CHLORIDE 1 GM TABLET PO SCH ×4 (06:31→19:46)
[2018-10-18 09:10] VITALS: BP 135/74
[2018-10-18] MEDS: AMLODIPINE 5 MG TABLET PO SCH (09:20)
[2018-10-18] MEDS: LISINOPRIL 5 MG TABLET PO SCH (09:20)
[2018-10-18] MEDS: RIFAMPIN 300 MG CAPSULE PO SCH (09:21)
[2018-10-18 19:26] VITALS: BP 151/73
[2018-10-18] MEDS: QUETIAPINE 25MG TABLET PO SCH (19:46)
[2018-10-19] MEDS: SODIUM CHLORIDE 1 GM TABLET PO SCH ×4 (06:02→22:55)
[2018-10-19 07:25] VITALS: BP 127/73
[2018-10-19] MEDS: AMLODIPINE 5 MG TABLET PO SCH (08:32)
[2018-10-19] MEDS: RIFAMPIN 300 MG CAPSULE PO SCH (08:32)
[2018-10-19] MEDS: LISINOPRIL 10 MG TABLET PO SCH (08:33)
[2018-10-19 12:35] VITALS: BP 136/64
[2018-10-19] MEDS: QUETIAPINE 25MG TABLET PO SCH (22:55)
[2018-10-20] MEDS: SODIUM CHLORIDE 1 GM TABLET PO SCH ×4 (06:18→22:20)
[2018-10-20 08:13] VITALS: BP 138/86
[2018-10-20] MEDS: AMLODIPINE 5 MG TABLET PO SCH (11:24)
[2018-10-20] MEDS: LISINOPRIL 10 MG TABLET PO SCH (11:25)
[2018-10-20] MEDS: RIFAMPIN 300 MG CAPSULE PO SCH (11:25)
[2018-10-20 19:56] VITALS: BP 150/73
[2018-10-20] MEDS: QUETIAPINE 25MG TABLET PO SCH (22:20)
[2018-10-21] MEDS: SODIUM CHLORIDE 1 GM TABLET PO SCH ×4 (06:40→20:49)
[2018-10-21] MEDS: RIFAMPIN 300 MG CAPSULE PO SCH (07:56)
[2018-10-21] MEDS: LISINOPRIL 10 MG TABLET PO SCH (07:56)
[2018-10-21] MEDS: AMLODIPINE 5 MG TABLET PO SCH (07:56)
[2018-10-21 08:00] VITALS: BP 132/64
[2018-10-21 11:25] VITALS: BP 148/72
[2018-10-21] MEDS: QUETIAPINE 25MG TABLET PO SCH (20:49)
[2018-10-22] MEDS: SODIUM CHLORIDE 1 GM TABLET PO SCH ×4 (06:19→20:09)
[2018-10-22 08:00] VITALS: BP 160/75
[2018-10-22] MEDS: AMLODIPINE 5 MG TABLET PO SCH (10:13)
[2018-10-22] MEDS: RIFAMPIN 300 MG CAPSULE PO SCH (10:13)
[2018-10-22] MEDS: LISINOPRIL 10 MG TABLET PO SCH (10:13)
[2018-10-22 19:21] VITALS: BP 140/73
[2018-10-22] MEDS: QUETIAPINE 25MG TABLET PO SCH (20:09)
[2018-10-23] MEDS: SODIUM CHLORIDE 1 GM TABLET PO SCH ×4 (06:47→19:46)
[2018-10-23 08:00] VITALS: BP 109/53
[2018-10-23] MEDS: RIFAMPIN 300 MG CAPSULE PO SCH (09:01)
[2018-10-23] MEDS: LISINOPRIL 10 MG TABLET PO SCH (09:02)
[2018-10-23] MEDS: AMLODIPINE 5 MG TABLET PO SCH (09:02)
[2018-10-23 09:03] VITALS: BP 118/62
[2018-10-23] MEDS: QUETIAPINE 25MG TABLET PO SCH (19:46)
[2018-10-24] MEDS: SODIUM CHLORIDE 1 GM TABLET PO SCH ×4 (06:50→19:47)
[2018-10-24] MEDS: LISINOPRIL 10 MG TABLET PO SCH (08:08)
[2018-10-24] MEDS: RIFAMPIN 300 MG CAPSULE PO SCH (08:08)
[2018-10-24] MEDS: AMLODIPINE 5 MG TABLET PO SCH (08:08)
[2018-10-24 08:47] VITALS: BP 115/73
[2018-10-24 19:39] VITALS: BP 125/79
[2018-10-24] MEDS: QUETIAPINE 25MG TABLET PO SCH (19:47)
[2018-10-25] MEDS: SODIUM CHLORIDE 1 GM TABLET PO SCH ×4 (06:41→21:03)
[2018-10-25 06:58] VITALS: BP 148/74
[2018-10-25] MEDS: AMLODIPINE 5 MG TABLET PO SCH (08:45)
[2018-10-25] MEDS: LISINOPRIL 10 MG TABLET PO SCH (08:45)
[2018-10-25] MEDS: RIFAMPIN 300 MG CAPSULE PO SCH (08:45)
[2018-10-25] MEDS: QUETIAPINE 25MG TABLET PO SCH (21:03)
[2018-10-26] MEDS: SODIUM CHLORIDE 1 GM TABLET PO SCH ×4 (06:44→22:06)
[2018-10-26] MEDS: RIFAMPIN 300 MG CAPSULE PO SCH (08:49)
[2018-10-26] MEDS: LISINOPRIL 10 MG TABLET PO SCH (08:49)
[2018-10-26] MEDS: AMLODIPINE 5 MG TABLET PO SCH (08:49)
[2018-10-26 09:57] VITALS: BP 154/88
[2018-10-26 19:42] VITALS: BP 137/79
[2018-10-26] MEDS: QUETIAPINE 25MG TABLET PO SCH (22:06)
[2018-10-27] MEDS: SODIUM CHLORIDE 1 GM TABLET PO SCH ×4 (06:07→20:01)
[2018-10-27] MEDS: AMLODIPINE 5 MG TABLET PO SCH (09:11)
[2018-10-27] MEDS: RIFAMPIN 300 MG CAPSULE PO SCH (09:12)
[2018-10-27] MEDS: LISINOPRIL 10 MG TABLET PO SCH (09:12)
[2018-10-27 09:14] VITALS: BP 149/77
[2018-10-27] MEDS: QUETIAPINE 25MG TABLET PO SCH (20:01)
[2018-10-28] MEDS: SODIUM CHLORIDE 1 GM TABLET PO SCH ×4 (06:41→21:25)
[2018-10-28 07:50] VITALS: BP 123/74
[2018-10-28] MEDS: RIFAMPIN 300 MG CAPSULE PO SCH (08:50)
[2018-10-28] MEDS: AMLODIPINE 5 MG TABLET PO SCH (08:50)
[2018-10-28] MEDS: LISINOPRIL 10 MG TABLET PO SCH (08:50)
[2018-10-28] MEDS: QUETIAPINE 25MG TABLET PO SCH (21:25)
[2018-10-29] MEDS: SODIUM CHLORIDE 1 GM TABLET PO SCH ×4 (06:06→20:32)
[2018-10-29 07:21] VITALS: BP 134/76
[2018-10-29] MEDS: AMLODIPINE 5 MG TABLET PO SCH (09:05)
[2018-10-29] MEDS: LISINOPRIL 10 MG TABLET PO SCH (09:05)
[2018-10-29] MEDS: RIFAMPIN 300 MG CAPSULE PO SCH (09:12)
[2018-10-29 20:07] VITALS: BP 141/77
[2018-10-29] MEDS: QUETIAPINE 25MG TABLET PO SCH (20:33)
[2018-10-30] MEDS: SODIUM CHLORIDE 1 GM TABLET PO SCH ×4 (06:03→19:54)
[2018-10-30] MEDS: LISINOPRIL 10 MG TABLET PO SCH (08:03)
[2018-10-30] MEDS: RIFAMPIN 300 MG CAPSULE PO SCH (08:03)
[2018-10-30] MEDS: AMLODIPINE 5 MG TABLET PO SCH (08:03)
[2018-10-30 08:07] VITALS: BP 144/60
[2018-10-30 12:54] VITALS: BP 99/68
[2018-10-30] MEDS: QUETIAPINE 25MG TABLET PO SCH (19:55)
[2018-10-30 20:07] VITALS: BP 147/63
[2018-10-31] MEDS: SODIUM CHLORIDE 1 GM TABLET PO SCH ×4 (06:02→21:49)
[2018-10-31 07:45] VITALS: BP 132/69
[2018-10-31] MEDS: AMLODIPINE 5 MG TABLET PO SCH (09:17)
[2018-10-31] MEDS: LISINOPRIL 10 MG TABLET PO SCH (09:17)
[2018-10-31] MEDS: RIFAMPIN 300 MG CAPSULE PO SCH (09:17)
[2018-10-31 20:24] VITALS: BP 147/81
[2018-10-31] MEDS: QUETIAPINE 25MG TABLET PO SCH (21:50)
[2018-11-01] MEDS: SODIUM CHLORIDE 1 GM TABLET PO SCH ×4 (06:00→21:03)
[2018-11-01 07:23] VITALS: BP 147/78
[2018-11-01] MEDS: RIFAMPIN 300 MG CAPSULE PO SCH (08:39)
[2018-11-01] MEDS: AMLODIPINE 5 MG TABLET PO SCH (08:39)
[2018-11-01] MEDS: LISINOPRIL 10 MG TABLET PO SCH (08:40)
[2018-11-01] MEDS: QUETIAPINE 25MG TABLET PO SCH (21:03)
[2018-11-02] MEDS: SODIUM CHLORIDE 1 GM TABLET PO SCH ×4 (06:49→19:22)
[2018-11-02 07:24] VITALS: BP 144/83
[2018-11-02] MEDS: AMLODIPINE 5 MG TABLET PO SCH (09:20)
[2018-11-02] MEDS: RIFAMPIN 300 MG CAPSULE PO SCH (09:20)
[2018-11-02] MEDS: LISINOPRIL 10 MG TABLET PO SCH (09:20)
[2018-11-02] MEDS: QUETIAPINE 25MG TABLET PO SCH (19:22)
[2018-11-03] MEDS: SODIUM CHLORIDE 1 GM TABLET PO SCH ×4 (05:31→21:04)
[2018-11-03 07:55] VITALS: BP 138/69
[2018-11-03] MEDS: RIFAMPIN 300 MG CAPSULE PO SCH (08:25)
[2018-11-03] MEDS: AMLODIPINE 5 MG TABLET PO SCH (08:26)
[2018-11-03] MEDS: LISINOPRIL 10 MG TABLET PO SCH (08:27)
[2018-11-03] MEDS: QUETIAPINE 25MG TABLET PO SCH (21:04)
[2018-11-04] MEDS: SODIUM CHLORIDE 1 GM TABLET PO SCH ×4 (06:26→21:44)
[2018-11-04 08:45] VITALS: BP 134/68
[2018-11-04] MEDS: LISINOPRIL 10 MG TABLET PO SCH (08:53)
[2018-11-04] MEDS: AMLODIPINE 5 MG TABLET PO SCH (08:53)
[2018-11-04] MEDS: RIFAMPIN 300 MG CAPSULE PO SCH (08:55)
[2018-11-04 20:43] VITALS: BP 173/74
[2018-11-04] MEDS: QUETIAPINE 25MG TABLET PO SCH (21:44)
[2018-11-05 06:56] VITALS: BP 130/70
[2018-11-05] MEDS: RIFAMPIN 300 MG CAPSULE PO SCH (09:55)
[2018-11-05] MEDS: SODIUM CHLORIDE 1 GM TABLET PO SCH ×4 (09:56→20:59)
[2018-11-05] MEDS: AMLODIPINE 5 MG TABLET PO SCH (09:56)
[2018-11-05] MEDS: LISINOPRIL 10 MG TABLET PO SCH (09:56)
[2018-11-05] MEDS: QUETIAPINE 25MG TABLET PO SCH (20:59)
[2018-11-06] MEDS: SODIUM CHLORIDE 1 GM TABLET PO SCH ×4 (05:58→20:37)
[2018-11-06 08:54] VITALS: BP 102/62
[2018-11-06] MEDS: RIFAMPIN 300 MG CAPSULE PO SCH (09:15)
[2018-11-06] MEDS: AMLODIPINE 5 MG TABLET PO SCH (09:15)
[2018-11-06] MEDS: LISINOPRIL 10 MG TABLET PO SCH (09:15)
[2018-11-06 09:43] LABS: BASOPHILS # (AUTO) 0.03 x10^3/uL (0-0.1); BASOPHILS % (AUTO) 1 % (0-1); EOSINOPHILS # (AUTO) 0.28 x10^3/uL (0-0.4); EOSINOPHILS % (AUTO) 7 % (1-7); LYMPHOCYTES % (AUTO) 36 % (22-44); MD NO; MEAN CORPUSCULAR HEMOGLOBIN 24.5 pg (27.5-34.5); MEAN CORPUSCULAR HGB CONC 32.1 g/dL (33.2-36.2); MEAN CORPUSCULAR VOLUME 76.4 fL (81-97); MEAN PLATELET VOLUME 8.9 fL (7.4-10.4); MONOCYTES # (AUTO) 0.41 x10^3/uL (0.2-0.8); MONOCYTES % (AUTO) 11 % (2-9); NEUTROPHILS # (AUTO) 1.78 x10^3/uL (1.8-6.8); NEUTROPHILS % (AUTO) 46 % (42-75); PLATELET COUNT 262 x10^3/uL (130-400); RED BLOOD COUNT 5.52 x10^6/uL (4.38-5.82); RED CELL DISTRIBUTION WIDTH 16.8 % (9.4-14.8)
[2018-11-06 09:50] LABS: ALBUMIN 3.3 g/dL (3.4-5.0); ANION GAP 5 mmol/L (5-15); CALCIUM 8.3 mg/dL (8.5-10.1); CHLORIDE 105 mmol/L (98-107)
[2018-11-06 09:53] LABS: ALANINE AMINOTRANSFERASE 13 U/L (12-78); ALKALINE PHOSPHATASE 89 U/L (45-117); BILIRUBIN,TOTAL 0.3 mg/dL (0.2-1.0); TOTAL PROTEIN 7.2 g/dL (6.4-8.2)
[2018-11-06 19:56] VITALS: BP 134/65
[2018-11-06] MEDS: QUETIAPINE 25MG TABLET PO SCH (20:38)
[2018-11-07] MEDS: SODIUM CHLORIDE 1 GM TABLET PO SCH ×4 (04:55→20:53)
[2018-11-07 07:08] VITALS: BP 112/46
[2018-11-07 10:22] VITALS: BP 118/66
[2018-11-07] MEDS: AMLODIPINE 5 MG TABLET PO SCH (10:30)
[2018-11-07] MEDS: LISINOPRIL 10 MG TABLET PO SCH (10:30)
[2018-11-07] MEDS: RIFAMPIN 300 MG CAPSULE PO SCH (10:30)
[2018-11-07] MEDS: QUETIAPINE 25MG TABLET PO SCH (20:53)
[2018-11-08] MEDS: SODIUM CHLORIDE 1 GM TABLET PO SCH ×4 (05:54→20:40)
[2018-11-08] MEDS: AMLODIPINE 5 MG TABLET PO SCH (08:59)
[2018-11-08] MEDS: RIFAMPIN 300 MG CAPSULE PO SCH (08:59)
[2018-11-08] MEDS: LISINOPRIL 10 MG TABLET PO SCH (09:00)
[2018-11-08 09:09] VITALS: BP 161/81
[2018-11-08] MEDS: QUETIAPINE 25MG TABLET PO SCH (20:40)
[2018-11-09] MEDS: SODIUM CHLORIDE 1 GM TABLET PO SCH ×4 (06:30→21:03)
[2018-11-09 08:20] VITALS: BP 113/71
[2018-11-09] MEDS: LISINOPRIL 10 MG TABLET PO SCH (09:42)
[2018-11-09] MEDS: RIFAMPIN 300 MG CAPSULE PO SCH (09:42)
[2018-11-09] MEDS: AMLODIPINE 5 MG TABLET PO SCH (09:42)
[2018-11-09] MEDS: QUETIAPINE 25MG TABLET PO SCH (21:04)
[2018-11-10] MEDS: SODIUM CHLORIDE 1 GM TABLET PO SCH ×4 (06:43→19:48)
[2018-11-10 07:27] VITALS: BP 159/77
[2018-11-10] MEDS: RIFAMPIN 300 MG CAPSULE PO SCH (07:35)
[2018-11-10] MEDS: LISINOPRIL 10 MG TABLET PO SCH (07:35)
[2018-11-10] MEDS: AMLODIPINE 5 MG TABLET PO SCH (07:35)
[2018-11-10] MEDS: QUETIAPINE 25MG TABLET PO SCH (19:48)
[2018-11-11] MEDS: SODIUM CHLORIDE 1 GM TABLET PO SCH ×4 (07:01→20:14)
[2018-11-11 08:07] VITALS: BP 144/82
[2018-11-11] MEDS: AMLODIPINE 5 MG TABLET PO SCH (09:19)
[2018-11-11] MEDS: LISINOPRIL 10 MG TABLET PO SCH (09:19)
[2018-11-11] MEDS: RIFAMPIN 300 MG CAPSULE PO SCH (09:19)
[2018-11-11] MEDS: QUETIAPINE 25MG TABLET PO SCH (20:14)
[2018-11-12] MEDS: SODIUM CHLORIDE 1 GM TABLET PO SCH ×4 (05:20→20:39)
[2018-11-12 07:45] VITALS: BP 141/66
[2018-11-12] MEDS: AMLODIPINE 5 MG TABLET PO SCH (07:54)
[2018-11-12] MEDS: LISINOPRIL 10 MG TABLET PO SCH (07:54)
[2018-11-12] MEDS: RIFAMPIN 300 MG CAPSULE PO SCH (07:54)
[2018-11-12] MEDS: QUETIAPINE 25MG TABLET PO SCH (20:39)
[2018-11-13 05:22] LABS: CALCIUM 8.4 mg/dL (8.5-10.1); CREATININE 0.91 mg/dL (0.7-1.3)
[2018-11-13 05:59] LABS: ANION GAP 6 mmol/L (5-15); CHLORIDE 102 mmol/L (98-107)
[2018-11-13] MEDS: SODIUM CHLORIDE 1 GM TABLET PO SCH ×4 (06:02→20:55)
[2018-11-13 07:31] VITALS: BP 138/83
[2018-11-13] MEDS: LISINOPRIL 10 MG TABLET PO SCH (07:33)
[2018-11-13] MEDS: RIFAMPIN 300 MG CAPSULE PO SCH (07:33)
[2018-11-13] MEDS: AMLODIPINE 5 MG TABLET PO SCH (07:33)
[2018-11-13] MEDS: QUETIAPINE 25MG TABLET PO SCH (20:55)
[2018-11-14] MEDS: SODIUM CHLORIDE 1 GM TABLET PO SCH ×4 (06:14→20:36)
[2018-11-14 08:02] VITALS: BP 161/76
[2018-11-14] MEDS: AMLODIPINE 5 MG TABLET PO SCH (09:11)
[2018-11-14] MEDS: RIFAMPIN 300 MG CAPSULE PO SCH (09:11)
[2018-11-14] MEDS: LISINOPRIL 10 MG TABLET PO SCH (09:12)
[2018-11-14 13:29] VITALS: BP 137/76
[2018-11-14 19:11] VITALS: BP 163/68
[2018-11-14] MEDS: QUETIAPINE 25MG TABLET PO SCH (20:35)
[2018-11-15] MEDS: SODIUM CHLORIDE 1 GM TABLET PO SCH ×3 (06:21→20:36)
[2018-11-15 09:49] VITALS: BP 178/78
[2018-11-15] MEDS: RIFAMPIN 300 MG CAPSULE PO SCH (09:51)
[2018-11-15] MEDS: AMLODIPINE 5 MG TABLET PO SCH (09:52)
[2018-11-15] MEDS: LISINOPRIL 10 MG TABLET PO SCH (09:52)
[2018-11-15] MEDS: QUETIAPINE 25MG TABLET PO SCH (20:36)
[2018-11-16 05:15] LABS: CHLORIDE 102 mmol/L (98-107)
[2018-11-16 05:20] LABS: ANION GAP 7 mmol/L (5-15); CALCIUM 8.3 mg/dL (8.5-10.1); CREATININE 0.92 mg/dL (0.7-1.3)
[2018-11-16 09:57] VITALS: BP 112/68
[2018-11-16] MEDS: AMLODIPINE 5 MG TABLET PO SCH (10:05)
[2018-11-16] MEDS: LISINOPRIL 10 MG TABLET PO SCH (10:05)
[2018-11-16] MEDS: SODIUM CHLORIDE 1 GM TABLET PO SCH ×2 (10:05→21:33)
[2018-11-16] MEDS: RIFAMPIN 300 MG CAPSULE PO SCH (10:06)
[2018-11-16] MEDS: QUETIAPINE 25MG TABLET PO SCH (21:34)
[2018-11-17 08:00] VITALS: BP 165/69
[2018-11-17] MEDS: AMLODIPINE 5 MG TABLET PO SCH (08:24)
[2018-11-17] MEDS: RIFAMPIN 300 MG CAPSULE PO SCH (08:24)
[2018-11-17] MEDS: SODIUM CHLORIDE 1 GM TABLET PO SCH ×2 (08:24→19:53)
[2018-11-17] MEDS ORDERED: LISINOPRIL 20 MG TABLET ONE (08:26)
[2018-11-17] MEDS: QUETIAPINE 25MG TABLET PO PRN (08:28)
[2018-11-17] MEDS ORDERED: LISINOPRIL 10 MG TABLET PO SCH (09:00)
[2018-11-17] MEDS: LISINOPRIL 20 MG TABLET PO SCH (09:00)
[2018-11-17] MEDS: QUETIAPINE 25MG TABLET PO SCH (19:53)
[2018-11-18 07:56] VITALS: BP_SYST 123; BP_SYST 139; BP_DIAS 67; BP_DIAS 71
[2018-11-18] MEDS: SODIUM CHLORIDE 1 GM TABLET PO SCH ×2 (08:58→19:55)
[2018-11-18] MEDS: LISINOPRIL 20 MG TABLET PO SCH (08:58)
[2018-11-18] MEDS: RIFAMPIN 300 MG CAPSULE PO SCH (08:58)
[2018-11-18] MEDS: AMLODIPINE 5 MG TABLET PO SCH (08:58)
[2018-11-18] MEDS: QUETIAPINE 25MG TABLET PO PRN (14:14)
[2018-11-18] MEDS: QUETIAPINE 25MG TABLET PO SCH (19:56)
[2018-11-19 05:44] LABS: CHLORIDE 103 mmol/L (98-107)
[2018-11-19 05:47] LABS: ANION GAP 8 mmol/L (5-15); CALCIUM 8.4 mg/dL (8.5-10.1); CREATININE 0.81 mg/dL (0.7-1.3)
[2018-11-19 08:01] VITALS: BP 147/60
[2018-11-19] MEDS: RIFAMPIN 300 MG CAPSULE PO SCH (09:29)
[2018-11-19] MEDS: AMLODIPINE 5 MG TABLET PO SCH (09:29)
[2018-11-19] MEDS: SODIUM CHLORIDE 1 GM TABLET PO SCH ×2 (09:29→20:47)
[2018-11-19] MEDS: LISINOPRIL 20 MG TABLET PO SCH (09:29)
[2018-11-19 20:25] VITALS: BP 162/88
[2018-11-19] MEDS: QUETIAPINE 25MG TABLET PO SCH (20:47)
[2018-11-20 08:27] VITALS: BP 132/65
[2018-11-20] MEDS: RIFAMPIN 300 MG CAPSULE PO SCH (09:07)
[2018-11-20] MEDS: LISINOPRIL 20 MG TABLET PO SCH (09:08)
[2018-11-20] MEDS: AMLODIPINE 5 MG TABLET PO SCH (09:08)
[2018-11-20] MEDS: QUETIAPINE 25MG TABLET PO SCH (20:56)
[2018-11-21 05:46] LABS: ANION GAP 5 mmol/L (5-15); CALCIUM 8.6 mg/dL (8.5-10.1); CHLORIDE 100 mmol/L (98-107)
[2018-11-21 05:47] LABS: CREATININE 1.01 mg/dL (0.7-1.3)
[2018-11-21 08:35] VITALS: BP 152/64
[2018-11-21] MEDS: LISINOPRIL 20 MG TABLET PO SCH (08:37)
[2018-11-21] MEDS: AMLODIPINE 5 MG TABLET PO SCH (08:37)
[2018-11-21] MEDS: RIFAMPIN 300 MG CAPSULE PO SCH (08:37)
[2018-11-21] MEDS: QUETIAPINE 25MG TABLET PO SCH (20:42)
[2018-11-22 08:13] VITALS: BP 171/83
[2018-11-22] MEDS: LISINOPRIL 20 MG TABLET PO SCH (09:31)
[2018-11-22] MEDS: RIFAMPIN 300 MG CAPSULE PO SCH (09:31)
[2018-11-22] MEDS: AMLODIPINE 5 MG TABLET PO SCH (09:31)
[2018-11-22] MEDS: QUETIAPINE 25MG TABLET PO PRN (14:05)
[2018-11-22] MEDS: QUETIAPINE 25MG TABLET PO SCH (19:58)
[2018-11-22] MEDS: DOCUSATE 100 MG CAPSULE PO PRN (20:02)
[2018-11-23 06:17] LABS: ANION GAP 7 mmol/L (5-15); CALCIUM 8.7 mg/dL (8.5-10.1); CHLORIDE 98 mmol/L (98-107)
[2018-11-23 10:47] VITALS: BP 116/59
[2018-11-23] MEDS: AMLODIPINE 5 MG TABLET PO SCH (10:52)
[2018-11-23] MEDS: LISINOPRIL 20 MG TABLET PO SCH (10:52)
[2018-11-23] MEDS: RIFAMPIN 300 MG CAPSULE PO SCH (10:52)
[2018-11-23] MEDS: QUETIAPINE 25MG TABLET PO SCH (19:45)
[2018-11-23 19:52] VITALS: BP 157/79
[2018-11-24 07:47] VITALS: BP 152/74
[2018-11-24] MEDS: AMLODIPINE 5 MG TABLET PO SCH (08:21)
[2018-11-24] MEDS: LISINOPRIL 20 MG TABLET PO SCH (08:22)
[2018-11-24] MEDS: RIFAMPIN 300 MG CAPSULE PO SCH (08:22)
[2018-11-24] MEDS: SODIUM CHLORIDE 1 GM TABLET PO SCH ×2 (10:17→20:11)
[2018-11-24 19:39] VITALS: BP 153/75
[2018-11-24] MEDS: QUETIAPINE 25MG TABLET PO SCH (20:11)
[2018-11-24] MEDS: DOCUSATE 100 MG CAPSULE PO PRN (20:15)
[2018-11-25 08:00] VITALS: BP 152/83
[2018-11-25] MEDS: RIFAMPIN 300 MG CAPSULE PO SCH (10:32)
[2018-11-25] MEDS: SODIUM CHLORIDE 1 GM TABLET PO SCH ×2 (10:32→20:14)
[2018-11-25] MEDS: AMLODIPINE 5 MG TABLET PO SCH (10:32)
[2018-11-25] MEDS: LISINOPRIL 20 MG TABLET PO SCH (10:32)
[2018-11-25 18:52] VITALS: BP 126/67
[2018-11-25] MEDS: QUETIAPINE 25MG TABLET PO SCH (20:20)
[2018-11-26 07:34] VITALS: BP 108/68
[2018-11-26] MEDS: RIFAMPIN 300 MG CAPSULE PO SCH (08:55)
[2018-11-26] MEDS: AMLODIPINE 5 MG TABLET PO SCH (08:55)
[2018-11-26] MEDS: SODIUM CHLORIDE 1 GM TABLET PO SCH ×2 (08:55→21:30)
[2018-11-26] MEDS: LISINOPRIL 20 MG TABLET PO SCH (08:55)
[2018-11-26 19:18] VITALS: BP 147/93
[2018-11-26] MEDS: QUETIAPINE 25MG TABLET PO SCH (21:30)
[2018-11-27 01:34] VITALS: BP 109/62
[2018-11-27 05:58] LABS: CHLORIDE 97 mmol/L (98-107)
[2018-11-27 06:08] LABS: ANION GAP 9 mmol/L (5-15); CALCIUM 8.3 mg/dL (8.5-10.1); CREATININE 0.92 mg/dL (0.7-1.3)
[2018-11-27 06:51] VITALS: BP 111/69
[2018-11-27] MEDS: SODIUM CHLORIDE 1 GM TABLET PO SCH ×2 (08:27→20:31)
[2018-11-27] MEDS: AMLODIPINE 5 MG TABLET PO SCH (08:28)
[2018-11-27] MEDS: LISINOPRIL 20 MG TABLET PO SCH (08:28)
[2018-11-27] MEDS: RIFAMPIN 300 MG CAPSULE PO SCH (08:28)
[2018-11-27 19:06] VITALS: BP 157/82
[2018-11-27] MEDS: QUETIAPINE 25MG TABLET PO SCH (20:31)
[2018-11-28 01:01] VITALS: BP 126/76
[2018-11-28 06:53] VITALS: BP 145/81
[2018-11-28] MEDS: AMLODIPINE 5 MG TABLET PO SCH (08:40)
[2018-11-28] MEDS: SODIUM CHLORIDE 1 GM TABLET PO SCH ×2 (08:40→20:25)
[2018-11-28] MEDS: RIFAMPIN 300 MG CAPSULE PO SCH (08:40)
[2018-11-28] MEDS: LISINOPRIL 20 MG TABLET PO SCH (08:40)
[2018-11-28 18:37] VITALS: BP 138/74
[2018-11-28] MEDS: QUETIAPINE 25MG TABLET PO SCH (20:25)
[2018-11-29 05:52] LABS: ALBUMIN 3.6 g/dL (3.4-5.0); ANION GAP 7 mmol/L (5-15); CALCIUM 8.7 mg/dL (8.5-10.1); CHLORIDE 97 mmol/L (98-107); CREATININE 0.93 mg/dL (0.7-1.3)
[2018-11-29 06:36] VITALS: BP 118/57
[2018-11-29] MEDS: AMLODIPINE 5 MG TABLET PO SCH (09:10)
[2018-11-29] MEDS: RIFAMPIN 300 MG CAPSULE PO SCH (09:11)
[2018-11-29] MEDS: LISINOPRIL 20 MG TABLET PO SCH (09:11)
[2018-11-29] MEDS: SODIUM CHLORIDE 1 GM TABLET PO SCH ×3 (10:32→19:51)
[2018-11-29 19:10] LABS: ANION GAP 9 mmol/L (5-15); CALCIUM 8.9 mg/dL (8.5-10.1); CHLORIDE 98 mmol/L (98-107); CREATININE 0.96 mg/dL (0.7-1.3)
[2018-11-29] MEDS: QUETIAPINE 25MG TABLET PO SCH (19:52)
[2018-11-30] MEDS: SODIUM CHLORIDE 1 GM TABLET PO SCH ×4 (05:58→19:45)
[2018-11-30 06:03] LABS: ANION GAP 7 mmol/L (5-15); CALCIUM 8.6 mg/dL (8.5-10.1); CHLORIDE 99 mmol/L (98-107)
[2018-11-30 06:04] LABS: CREATININE 0.93 mg/dL (0.7-1.3)
[2018-11-30 08:40] VITALS: BP 118/68
[2018-11-30] MEDS: AMLODIPINE 5 MG TABLET PO SCH (08:48)
[2018-11-30] MEDS: LISINOPRIL 20 MG TABLET PO SCH (08:48)
[2018-11-30] MEDS: RIFAMPIN 300 MG CAPSULE PO SCH (08:48)
[2018-11-30 09:51] VITALS: BP 109/61
[2018-11-30 19:45] VITALS: BP 120/59
[2018-11-30] MEDS: QUETIAPINE 25MG TABLET PO SCH (19:45)
[2018-12-01 05:40] LABS: ALANINE AMINOTRANSFERASE 17 U/L (12-78); ALBUMIN 3.4 g/dL (3.4-5.0); ANION GAP 6 mmol/L (5-15); CALCIUM 8.1 mg/dL (8.5-10.1); CHLORIDE 98 mmol/L (98-107); CREATININE 0.84 mg/dL (0.7-1.3)
[2018-12-01 05:43] LABS: ALKALINE PHOSPHATASE 88 U/L (45-117); BILIRUBIN,TOTAL 0.3 mg/dL (0.2-1.0); TOTAL PROTEIN 6.9 g/dL (6.4-8.2)
[2018-12-01] MEDS: SODIUM CHLORIDE 1 GM TABLET PO SCH ×4 (06:31→20:03)
[2018-12-01 06:55] VITALS: BP 114/63
[2018-12-01] MEDS ORDERED: FUROSEMIDE 20 MG TABLET PO SCH (09:00)
[2018-12-01] MEDS: AMLODIPINE 5 MG TABLET PO SCH (09:40)
[2018-12-01] MEDS: RIFAMPIN 300 MG CAPSULE PO SCH (09:41)
[2018-12-01] MEDS: LISINOPRIL 5 MG TABLET PO SCH (09:41)
[2018-12-01 19:36] LABS: ANION GAP 8 mmol/L (5-15); CALCIUM 8.7 mg/dL (8.5-10.1); CHLORIDE 94 mmol/L (98-107); CREATININE 0.83 mg/dL (0.7-1.3)
[2018-12-01] MEDS: QUETIAPINE 25MG TABLET PO SCH (20:03)
[2018-12-02] MEDS: SODIUM CHLORIDE 1 GM TABLET PO SCH ×4 (05:50→20:57)
[2018-12-02 05:56] LABS: ANION GAP 7 mmol/L (5-15); CALCIUM 8.5 mg/dL (8.5-10.1); CHLORIDE 96 mmol/L (98-107); CREATININE 0.89 mg/dL (0.7-1.3)
[2018-12-02 07:26] VITALS: BP 106/72
[2018-12-02] MEDS: AMLODIPINE 5 MG TABLET PO SCH (09:08)
[2018-12-02] MEDS: RIFAMPIN 300 MG CAPSULE PO SCH (09:08)
[2018-12-02] MEDS: LISINOPRIL 5 MG TABLET PO SCH (09:08)
[2018-12-02] MEDS: DOCUSATE 100 MG CAPSULE PO PRN (09:08)
[2018-12-02] MEDS: QUETIAPINE 25MG TABLET PO SCH (20:57)
[2018-12-03 05:59] LABS: ALANINE AMINOTRANSFERASE 16 U/L (12-78); ALBUMIN 3.4 g/dL (3.4-5.0); ANION GAP 7 mmol/L (5-15); CALCIUM 8.4 mg/dL (8.5-10.1); CHLORIDE 102 mmol/L (98-107); CREATININE 0.92 mg/dL (0.7-1.3)
[2018-12-03 06:01] LABS: ALKALINE PHOSPHATASE 102 U/L (45-117); BILIRUBIN,TOTAL 0.1 mg/dL (0.2-1.0); TOTAL PROTEIN 7.5 g/dL (6.4-8.2)
[2018-12-03] MEDS: SODIUM CHLORIDE 1 GM TABLET PO SCH ×4 (06:08→20:15)
[2018-12-03 08:01] VITALS: BP 145/75
[2018-12-03] MEDS: AMLODIPINE 5 MG TABLET PO SCH (08:03)
[2018-12-03] MEDS: RIFAMPIN 300 MG CAPSULE PO SCH (08:03)
[2018-12-03] MEDS: LISINOPRIL 5 MG TABLET PO SCH (08:03)
[2018-12-03] MEDS: QUETIAPINE 25MG TABLET PO SCH (20:15)
[2018-12-03 20:27] VITALS: BP 124/44
[2018-12-04 04:18] LABS: ANION GAP 7 mmol/L (5-15); CALCIUM 8.3 mg/dL (8.5-10.1); CHLORIDE 101 mmol/L (98-107)
[2018-12-04 04:19] LABS: CREATININE 0.87 mg/dL (0.7-1.3)
[2018-12-04] MEDS: SODIUM CHLORIDE 1 GM TABLET PO SCH ×4 (05:59→20:00)
[2018-12-04 07:00] VITALS: BP 150/76
[2018-12-04] MEDS: AMLODIPINE 5 MG TABLET PO SCH (10:23)
[2018-12-04] MEDS: LISINOPRIL 5 MG TABLET PO SCH (10:23)
[2018-12-04] MEDS: RIFAMPIN 300 MG CAPSULE PO SCH (10:23)
[2018-12-04] MEDS: QUETIAPINE 25MG TABLET PO SCH (20:00)
[2018-12-05 05:56] LABS: CHLORIDE 103 mmol/L (98-107)
[2018-12-05 06:08] LABS: ANION GAP 7 mmol/L (5-15); CALCIUM 8.6 mg/dL (8.5-10.1); CREATININE 0.93 mg/dL (0.7-1.3)
[2018-12-05] MEDS: SODIUM CHLORIDE 1 GM TABLET PO SCH ×4 (06:21→21:07)
[2018-12-05 07:52] VITALS: BP 123/72
[2018-12-05] MEDS: AMLODIPINE 5 MG TABLET PO SCH (09:35)
[2018-12-05] MEDS: LISINOPRIL 5 MG TABLET PO SCH (09:35)
[2018-12-05] MEDS: RIFAMPIN 300 MG CAPSULE PO SCH (09:35)
[2018-12-05] MEDS: QUETIAPINE 25MG TABLET PO SCH (21:07)
[2018-12-06 05:05] LABS: ANION GAP 6 mmol/L (5-15); CALCIUM 8.6 mg/dL (8.5-10.1); CHLORIDE 103 mmol/L (98-107)
[2018-12-06 05:08] LABS: CREATININE 1.01 mg/dL (0.7-1.3)
[2018-12-06] MEDS: SODIUM CHLORIDE 1 GM TABLET PO SCH ×4 (06:10→21:40)
[2018-12-06 08:44] VITALS: BP 106/88
[2018-12-06] MEDS: RIFAMPIN 300 MG CAPSULE PO SCH (08:56)
[2018-12-06] MEDS: AMLODIPINE 5 MG TABLET PO SCH (08:56)
[2018-12-06] MEDS: LISINOPRIL 5 MG TABLET PO SCH (08:57)
[2018-12-06] MEDS: QUETIAPINE 25MG TABLET PO SCH (21:40)
[2018-12-07 05:37] LABS: ANION GAP 5 mmol/L (5-15); CALCIUM 8.4 mg/dL (8.5-10.1); CHLORIDE 102 mmol/L (98-107)
[2018-12-07 05:38] LABS: CREATININE 0.86 mg/dL (0.7-1.3)
[2018-12-07] MEDS: SODIUM CHLORIDE 1 GM TABLET PO SCH ×4 (06:10→19:34)
[2018-12-07 06:50] VITALS: BP 136/74
[2018-12-07] MEDS: LISINOPRIL 5 MG TABLET PO SCH (09:37)
[2018-12-07] MEDS: RIFAMPIN 300 MG CAPSULE PO SCH (09:37)
[2018-12-07] MEDS: AMLODIPINE 5 MG TABLET PO SCH (09:37)
[2018-12-07] MEDS: QUETIAPINE 25MG TABLET PO SCH (19:34)
[2018-12-08] MEDS: SODIUM CHLORIDE 1 GM TABLET PO SCH ×4 (04:21→19:34)
[2018-12-08 05:39] LABS: ANION GAP 5 mmol/L (5-15); CALCIUM 8.3 mg/dL (8.5-10.1); CHLORIDE 106 mmol/L (98-107); CREATININE 0.91 mg/dL (0.7-1.3)
[2018-12-08 08:25] VITALS: BP 148/73
[2018-12-08] MEDS: LISINOPRIL 5 MG TABLET PO SCH (08:30)
[2018-12-08] MEDS: DOCUSATE 100 MG CAPSULE PO PRN (08:30)
[2018-12-08] MEDS: AMLODIPINE 5 MG TABLET PO SCH (08:30)
[2018-12-08] MEDS: RIFAMPIN 300 MG CAPSULE PO SCH (08:30)
[2018-12-08 12:30] VITALS: BP 127/79
[2018-12-08] MEDS: QUETIAPINE 25MG TABLET PO SCH (19:34)
[2018-12-09] MEDS: SODIUM CHLORIDE 1 GM TABLET PO SCH ×4 (03:31→20:59)
[2018-12-09 05:54] LABS: ANION GAP 6 mmol/L (5-15); CALCIUM 8.7 mg/dL (8.5-10.1); CHLORIDE 102 mmol/L (98-107)
[2018-12-09] MEDS ORDERED: GLUCAGON 1 MG IM PRN (07:30)
[2018-12-09] MEDS ORDERED: DEXTROSE 4 GM TAB.CHEW PO PRN (07:30)
[2018-12-09] MEDS ORDERED: DEXTROSE 50%, 50ML SYRINGE IVPush PRN (07:30)
[2018-12-09] MEDS: RIFAMPIN 300 MG CAPSULE PO SCH (07:54)
[2018-12-09] MEDS: AMLODIPINE 5 MG TABLET PO SCH (07:54)
[2018-12-09 07:55] VITALS: BP 138/74
[2018-12-09] MEDS: LISINOPRIL 5 MG TABLET PO SCH (07:55)
[2018-12-09] MEDS: SODIUM CHLORIDE FLUSH 10ML SYR IVF SCH ×2 (09:00→20:20)
[2018-12-09] MEDS: QUETIAPINE 25MG TABLET PO PRN (10:22)
[2018-12-09] MEDS: QUETIAPINE 25MG TABLET PO SCH (20:59)
[2018-12-10 04:56] LABS: ANION GAP 9 mmol/L (5-15); CALCIUM 8.3 mg/dL (8.5-10.1); CHLORIDE 101 mmol/L (98-107); CREATININE 0.76 mg/dL (0.7-1.3)
[2018-12-10] MEDS: SODIUM CHLORIDE 1 GM TABLET PO SCH ×4 (06:03→22:21)
[2018-12-10 10:35] VITALS: BP 138/74
[2018-12-10] MEDS: RIFAMPIN 300 MG CAPSULE PO SCH (10:39)
[2018-12-10] MEDS: SODIUM CHLORIDE FLUSH 10ML SYR IVF SCH ×2 (10:40→21:00)
[2018-12-10] MEDS: AMLODIPINE 5 MG TABLET PO SCH (10:40)
[2018-12-10] MEDS: LISINOPRIL 5 MG TABLET PO SCH (10:40)
[2018-12-10] MEDS: QUETIAPINE 25MG TABLET PO SCH (22:21)
[2018-12-10 22:46] VITALS: BP 146/85
[2018-12-11 05:48] LABS: ANION GAP 7 mmol/L (5-15); CALCIUM 8.5 mg/dL (8.5-10.1); CHLORIDE 102 mmol/L (98-107); CREATININE 0.79 mg/dL (0.7-1.3)
[2018-12-11] MEDS: SODIUM CHLORIDE 1 GM TABLET PO SCH ×4 (05:52→20:15)
[2018-12-11 10:01] VITALS: BP 118/77
[2018-12-11] MEDS: AMLODIPINE 5 MG TABLET PO SCH (10:02)
[2018-12-11] MEDS: LISINOPRIL 5 MG TABLET PO SCH (10:02)
[2018-12-11] MEDS: RIFAMPIN 300 MG CAPSULE PO SCH (10:06)
[2018-12-11] MEDS: SODIUM CHLORIDE FLUSH 10ML SYR IVF SCH (10:06)
[2018-12-11] MEDS: QUETIAPINE 25MG TABLET PO SCH (20:15)
[2018-12-12] MEDS: SODIUM CHLORIDE 1 GM TABLET PO SCH ×4 (06:42→21:04)
[2018-12-12 08:11] VITALS: BP 129/75
[2018-12-12] MEDS: AMLODIPINE 5 MG TABLET PO SCH (08:28)
[2018-12-12] MEDS: RIFAMPIN 300 MG CAPSULE PO SCH (08:28)
[2018-12-12] MEDS: LISINOPRIL 5 MG TABLET PO SCH (08:29)
[2018-12-12] MEDS: QUETIAPINE 25MG TABLET PO PRN (17:01)
[2018-12-12] MEDS: QUETIAPINE 25MG TABLET PO SCH (21:04)
[2018-12-13] MEDS: SODIUM CHLORIDE 1 GM TABLET PO SCH ×4 (06:26→21:17)
[2018-12-13 07:21] LABS: ANION GAP 7 mmol/L (5-15); CALCIUM 8.7 mg/dL (8.5-10.1); CHLORIDE 105 mmol/L (98-107)
[2018-12-13 07:47] VITALS: BP 143/81
[2018-12-13] MEDS: AMLODIPINE 5 MG TABLET PO SCH (09:43)
[2018-12-13] MEDS: RIFAMPIN 300 MG CAPSULE PO SCH (09:43)
[2018-12-13] MEDS: LISINOPRIL 5 MG TABLET PO SCH (09:43)
[2018-12-13 19:09] VITALS: BP 134/76
[2018-12-13] MEDS: QUETIAPINE 25MG TABLET PO SCH (21:17)
[2018-12-14] MEDS: SODIUM CHLORIDE 1 GM TABLET PO SCH ×4 (06:00→19:30)
[2018-12-14] MEDS: RIFAMPIN 300 MG CAPSULE PO SCH (08:19)
[2018-12-14] MEDS: AMLODIPINE 5 MG TABLET PO SCH (08:19)
[2018-12-14] MEDS: LISINOPRIL 5 MG TABLET PO SCH (08:19)
[2018-12-14 08:20] VITALS: BP 194/91
[2018-12-14] MEDS: QUETIAPINE 25MG TABLET PO PRN (08:20)
[2018-12-14 12:30] VITALS: BP 129/71
[2018-12-14] MEDS: QUETIAPINE 25MG TABLET PO SCH (19:30)
[2018-12-15 05:07] LABS: ANION GAP 7 mmol/L (5-15); CALCIUM 8.8 mg/dL (8.5-10.1); CHLORIDE 107 mmol/L (98-107); CREATININE 0.86 mg/dL (0.7-1.3)
[2018-12-15] MEDS: SODIUM CHLORIDE 1 GM TABLET PO SCH ×3 (06:17→19:18)
[2018-12-15 06:57] VITALS: BP 138/76
[2018-12-15] MEDS: AMLODIPINE 5 MG TABLET PO SCH (09:31)
[2018-12-15] MEDS: RIFAMPIN 300 MG CAPSULE PO SCH (09:31)
[2018-12-15] MEDS: LISINOPRIL 5 MG TABLET PO SCH (09:31)
[2018-12-15] MEDS: QUETIAPINE 25MG TABLET PO SCH (19:18)
[2018-12-16 07:10] VITALS: BP 132/69
[2018-12-16] MEDS: SODIUM CHLORIDE 1 GM TABLET PO SCH ×2 (08:36→20:29)
[2018-12-16] MEDS: RIFAMPIN 300 MG CAPSULE PO SCH (08:36)
[2018-12-16] MEDS: LISINOPRIL 5 MG TABLET PO SCH (08:36)
[2018-12-16] MEDS: AMLODIPINE 5 MG TABLET PO SCH (08:37)
[2018-12-16 19:42] VITALS: BP 170/73
[2018-12-16] MEDS: QUETIAPINE 25MG TABLET PO SCH (20:30)
[2018-12-16 21:44] VITALS: BP 158/78
[2018-12-17 06:54] LABS: ANION GAP 6 mmol/L (5-15); CALCIUM 8.3 mg/dL (8.5-10.1); CHLORIDE 102 mmol/L (98-107)
[2018-12-17 06:55] LABS: CREATININE 0.81 mg/dL (0.7-1.3)
[2018-12-17 07:46] VITALS: BP 153/65
[2018-12-17] MEDS ORDERED: SODIUM CHLORIDE 1 GM TABLET ONE (08:42)
[2018-12-17] MEDS: AMLODIPINE 5 MG TABLET PO SCH (08:47)
[2018-12-17] MEDS: RIFAMPIN 300 MG CAPSULE PO SCH (08:48)
[2018-12-17] MEDS: SODIUM CHLORIDE 1 GM TABLET PO SCH ×3 (08:48→20:04)
[2018-12-17] MEDS: LISINOPRIL 20 MG TABLET PO SCH ×2 (08:48→20:04)
[2018-12-17 19:51] VITALS: BP 142/83
[2018-12-17] MEDS: QUETIAPINE 25MG TABLET PO SCH (20:05)
[2018-12-18 05:36] LABS: CHLORIDE 102 mmol/L (98-107)
[2018-12-18 05:40] LABS: ANION GAP 3 mmol/L (5-15); CALCIUM 8.6 mg/dL (8.5-10.1); CREATININE 0.85 mg/dL (0.7-1.3)
[2018-12-18] MEDS: SODIUM CHLORIDE 1 GM TABLET PO SCH ×4 (05:52→21:01)
[2018-12-18 06:49] VITALS: BP 176/68
[2018-12-18] MEDS: LISINOPRIL 20 MG TABLET PO SCH ×2 (09:45→21:01)
[2018-12-18] MEDS: AMLODIPINE 5 MG TABLET PO SCH (09:45)
[2018-12-18] MEDS: RIFAMPIN 300 MG CAPSULE PO SCH (09:45)
[2018-12-18 13:38] VITALS: BP 120/72
[2018-12-18 15:32] VITALS: BP 149/82
[2018-12-18] MEDS: QUETIAPINE 25MG TABLET PO SCH (21:01)
[2018-12-19] MEDS: SODIUM CHLORIDE 1 GM TABLET PO SCH (06:01)
[2018-12-19] MEDS ORDERED: SODI1TAB PO (07:02)
[2018-12-19] MEDS ORDERED: AMLO-150 PO (07:02)
[2018-12-19] MEDS ORDERED: QUET25TA7 PO (07:02)
[2018-12-19] MEDS ORDERED: RIFA300C3 PO (07:02)
[2018-12-19] MEDS ORDERED: HYDR-3341 PO (07:02)
[2018-12-19] MEDS ORDERED: LISI-170 PO (07:02)
[2018-12-19] MEDS: RIFAMPIN 300 MG CAPSULE PO SCH (09:08)
[2018-12-19] MEDS: LISINOPRIL 20 MG TABLET PO SCH (09:08)
[2018-12-19 09:09] VITALS: BP 154/76
[2018-12-19] MEDS: AMLODIPINE 5 MG TABLET PO SCH (09:09)
== END 2018-12-19 10:35 | DRG 922 ==
LOC: MERGE 13:55 → ED 15:28 → EDIP 15:29 → SUATTDRO 15:48 → ED 17:27 → 4WST 17:53 → 4NOR 03-11 02:01
PROVIDERS: ADMIT Hospitalist; ATTEND Internal Medicine
DX: T67.0XXA Heatstroke and sunstroke, initial encounter (principal); G92 Toxic encephalopathy; E43 Unspecified severe protein-calorie malnutrition; N17.9 Acute kidney failure, unspecified; E87.0 Hyperosmolality and hypernatremia; M62.82 Rhabdomyolysis; E87.1 Hypo-osmolality and hyponatremia; E87.2 Acidosis; Z68.21 Body mass index [BMI] 21.0-21.9, adult; D50.9 Iron deficiency anemia, unspecified; D63.8 Anemia in other chronic diseases classified elsewhere; E83.51 Hypocalcemia; E86.0 Dehydration; E86.1 Hypovolemia; E87.5 Hyperkalemia; F03.90 Unspecified dementia, unspecified severity, without behavioral disturbance, psychotic disturbance, mood disturbance, and anxiety; F10.10 Alcohol abuse, uncomplicated; Y90.9 Presence of alcohol in blood, level not specified; I10 Essential (primary) hypertension; M19.90 Unspecified osteoarthritis, unspecified site; R76.11 Nonspecific reaction to tuberculin skin test without active tuberculosis; Z59.0 Homelessness; T67.5XXA Heat exhaustion, unspecified, initial encounter; Z87.891 Personal history of nicotine dependence; Z79.899 Other long term (current) drug therapy
CPT/HCPCS: 36415; 71045; 71260; 80048; 80053; 80069; 80307; 80329; 81003; 82040; 82306; 82310; 82330; 82378; 82436; 82550; 82565; 82728; 82962; 83540; 83550; 83605; 83690; 83735; 83930; 83935; 83970; 84100; 84133; 84295; 84300; 84443; 84484; 85025; 85045; 85610; 86301; 86480; 86580; 87205; 93005; 93306; 99285; G0378; J1650; J1756; J7070; Q9967; 92522-GN; 92523-GN; G0480; G0515-GN; J3475; J7030